=== PATIENT | female | born 1945 | race Caucasian/White ===

== ENCOUNTER → 2017-07-20 19:41 | Outpatient (CLI) | payer MEDICARE, OTHER, SELFPAY | PROVIDERS: Family Provider Family Medicine; PCP Family Medicine; Visit Provider Psychiatry & Neurology Neurology | DX: G47.33 Obstructive sleep apnea (adult) (pediatric) (principal) | CPT/HCPCS: 95810 ==

== ENCOUNTER 2017-08-15 11:17 | Inpatient (IN) | payer MEDICARE, OTHER, SELFPAY ==
[2017-08-15] VITALS (13 sets, daily range): BP systolic 119–152; BP diastolic 60–90; PULSE 44–70; RESP 14–20; TEMP 36.6–37; O2SAT 96–100; BMI 27.4; BMI 27.5; BMI 26.9
--- NOTE | 2017-08-15 12:14 | CT_ITS ---
STUDY: CT BRAIN WITHOUT CONTRAST REASON FOR EXAM: Female, 71 years old. Dizziness, weakness, lightheadedness RADIATION DOSAGE (If Supplied By Facility): CTDIvol = ( 44.99 ) mGy, DLP = ( 779.24 ) mGycm TECHNIQUE: Transaxial CT imaging of the brain was performed without administration of intravenous contrast material. Sagittal and coronal reconstructed images are provided and reviewed. Individualized dose optimization techniques were used for this CT. COMPARISON: 12/13/2016 FINDINGS: Normal soft tissue structures. There is hyperostosis frontalis internus. Normal size ventricles and extra-axial spaces for the patient's age. Normal white matter tracts of the cerebral hemispheres. Normal basal ganglia and thalami. Normal brainstem. Normal cerebellum. There is no intracranial hemorrhage. There are no findings of an acute ischemic infarction. There is mucoperiosteal inflammatory disease of the paranasal sinuses consistent with mild chronic sinusitis. CT/Brain/Head without Contrast IMPRESSION: No acute intracranial abnormality. Electronically Signed: Darian Ross DO at 13:46 EDT Tel , Service support ,
--- NOTE | 2017-08-15 12:15 | EKG12_ITS ---
Test Reason : SOB Blood Pressure : / mmHG Vent. Rate : 050 BPM Atrial Rate : 050 BPM P-R Int : 136 ms QRS Dur : 102 ms QT Int : 444 ms P-R-T Axes : 045 005 009 degrees QTc Int : 404 ms Sinus bradycardia Nonspecific ST and T wave abnormality Abnormal ECG Confirmed by LLUVIA SAUER, AIRAM ([id number]), supervising editor trailer CAROL PAZ ([id number] on 08/17/2017 6:07:06 PM Referred By: ADRIAN/ADRIÁN Confirmed By:AIRAM TEIXEIRA MD
--- NOTE | 2017-08-15 12:15 | CT_ITS ---
STUDY: CT ABDOMEN AND PELVIS WITHOUT CONTRAST REASON FOR EXAM: Female, 71 years old. Abdominal pain and weakness RADIATION DOSAGE (If Supplied By Facility): CTDIvol = ( 9.99 ) mGy, DLP = ( 504.33 ) mGycm TECHNIQUE: Transaxial images were obtained from the dome of the diaphragm to the symphysis pubis without oral contrast, and without intravenous contrast. Sagittal and coronal images were reconstructed. Individualized dose optimization techniques were used for this CT. COMPARISON: 12/01/2015 FINDINGS: The visualized lung bases are unremarkable. The visualized portions of the heart are within normal limits. Hilar calcifications are visualized. Evaluation of the abdominal viscera is limited in the absence of intravenous contrast. Normal liver. There are surgical clips in the gallbladder fossa consistent with a prior cholecystectomy. There are multiple benign calcified granulomata of the spleen. Normal pancreas. Normal bilateral adrenal glands. Normal right kidney. Normal left kidney. Normal visualized stomach. Normal small intestine. There appears to be pneumatosis within the right colon and proximal transverse. There is non-visualization of the appendix. Normal abdominal aorta. Normal inferior vena cava. Normal retroperitoneum. Normal urinary bladder. There is a left-sided inguinal hernia containing adipose tissue. Lymph nodes are seen in the inguinal region, right greater than left. There are diffuse degenerative changes of the visualized lumbar spine. CT/Abdomen/Pelvis without Cont IMPRESSION: Pneumatosis within the right and proximal transverse colon. No bowel obstruction, portal venous gas, or free air. Electronically Signed: Darian Ross DO at 14:09 EDT Tel , Service support ,
--- NOTE | 2017-08-15 12:19 | ED.DCSUM_ITS ---
- ER Visit Summary Date of Service: 08/15/17 Chief Complaint: Dizziness and weakness History of Present Illness: The patient is a 71 F with history of Takatsubos cardiomyopathy, gastritis and esophagitis who presents for 2 weeks of worsening dizziness and weakness. Patient states she abi gradually been getting weaker, and she feels dizzy when she ambulates or stands up. She describes it as feeling like she is going to faint while walking. It is improved if she lays down or sits down. She states she is sleeping a lot, and for the last week she could not even go to [facility]. She feels short of breath with exertion and mild activities of daily living. She also complains of chest heaviness for 2 weeks. She has been having some blurred vision as well. She has chronic abdominal pain secondary to a hernia operation. She also complains of chronic headaches. She is now on Topamax, which was started 3 weeks ago. No blood thinners. No other medication changes. Physical Examination: Vital signs: afebrile, hemodynamically stable, no hypoxia on room air General: well nourished, well developed, in no distress Skin: warm, dry, no rash, no pallor HEENT: normocephalic and atraumatic; PERRL, EOMI, moist mucous membranes Cardiovascular: Bradycardic rate and regular rhythm without murmurs, no peripheral edema, 2+ pulses all distal extremities Respiratory: No increased work of breathing, lungs are clear to auscultation bilaterally, no rales, rhonchi or wheezing Abdominal: Abdomen is soft, diffusely tender with normoactive bowel sounds, no guarding or rebound, no masses MSK: Moves all extremities, no deformities, generalized weakness Neuro: Awake and alert, oriented ?4. No facial droop, sensation and motor function intact and symmetric Test Results: Abnormal Lab Results 08/15/17 08/15/17 08/15/17 11:42 11:42 11:42 WBC 4.9 RBC 4.39 Hgb 12.9 Hct 39.2 MCV 89.3 MCH 29.4 MCHC 32.9 RDW 13.2 RDW Differential 42.9 Plt Count 251 MPV 9.3 Immature Gran % (Auto) 0.200 Neut % (Auto) 46.0 L Lymph % (Auto) 43.9 H [place] % (Auto) 7.5 Eos % (Auto) 1.8 Baso % (Auto) 0.6 Absolute Neuts (auto) 2.3 Absolute Lymphs (auto) 2.16 Total Counted Not Reportable Sodium 143 Potassium 3.7 Chloride 110 H Carbon Dioxide 23.0 Anion Gap 10 BUN 13 Creatinine 1.12 H Est GFR (MDRD) Af Amer 62 Est GFR (MDRD) Non-Af 51 L BUN/Creatinine Ratio 11.6 Glucose 88 Lactic Acid Calcium 9.2 Total Bilirubin 0.50 AST 15 ALT 17 Alkaline Phosphatase 65 Troponin I < 0.015 B-Natriuretic Peptide 25.8 Total Protein 7.4 Albumin 3.8 Globulin 3.6 Albumin/Globulin Ratio 1.1 Lipase 151 Urine Color Urine Clarity Urine pH Ur Specific [place] Urine Protein Urine Glucose (UA) Urine Ketones Urine Occult Blood Urine Nitrite Urine Bilirubin Urine Urobilinogen Ur Leukocyte Esterase Urine RBC Urine WBC Ur Squamous Epith Cells Urine Bacteria Urine Mucus POC Glucose 08/15/17 08/15/17 08/15/17 12:21 12:31 15:30 WBC RBC Hgb Hct MCV MCH MCHC RDW RDW Differential Plt Count MPV Immature Gran % (Auto) Neut % (Auto) Lymph % (Auto) [place] % (Auto) Eos % (Auto) Baso % (Auto) Absolute Neuts (auto) Absolute Lymphs (auto) Total Counted Sodium Potassium Chloride Carbon Dioxide Anion Gap BUN Creatinine Est GFR (MDRD) Af Amer Est GFR (MDRD) Non-Af BUN/Creatinine Ratio Glucose Lactic Acid 1.3 Calcium Total Bilirubin AST ALT Alkaline Phosphatase Troponin I B-Natriuretic Peptide Total Protein Albumin Globulin Albumin/Globulin Ratio Lipase Urine Color Yellow Urine Clarity Sl. Cloudy Urine pH 7.0 Ur Specific [place] 1.010 Urine Protein Negative Urine Glucose (UA) Normal Urine Ketones Negative Urine Occult Blood 10 H Urine Nitrite Negative Urine Bilirubin Negative Urine Urobilinogen Normal Ur Leukocyte Esterase 500 H Urine RBC 0 SEEN Urine WBC 0-5 SEEN Ur Squamous Epith Cells 0-5 SEEN Urine Bacteria 1+ Urine Mucus 0 SEEN POC Glucose 93 Clinical Impression(s) from Imaging Studies Brain CT 08/15/17 12:14 IMPRESSION: No acute intracranial abnormality. Electronically Signed: Darian Ross DO at 13:46 EDT Tel , Service support , Abdomen/Pelvis CT 08/15/17 12:15 IMPRESSION: Pneumatosis within the right and proximal transverse colon. No bowel obstruction, portal venous gas, or free air. Electronically Signed: Darian RossDO at 14:09 EDT Tel , Service support , Emergency Department Course and Treatment: Patient presents with multiple complaints, with the main issue being generalized weakness, fatigue and dizziness for the last 2 weeks, worsening. Patient is also having chest tightness and shortness of breath on exertion. Comprehensive workup was performed, showing an unremarkable head CT, no pneumonia noted on chest x-ray, no leukocytosis or anemia, no electrolyte derangements, no renal dysfunction or hepatic derangements, negative troponin, normal lactate, and normal BNP. EKG showed sinus bradycardia, which is unchanged from a prior EKG from 2005. Urine negative for infection. Given patient's complaint of significant abdominal pain , with tenderness diffusely on exam, CT of the abdomen and pelvis without contrast was performed and showed pneumatosis in the right and transverse colon. This finding was discussed with Dr. Falcon, who requested a CT scan be repeated with IV and p.o. contrast for further characterization of the pneumatosis and whether there may be ischemic changes. He will consult on the patient while in the hospital. Patient was ambulated and had difficulty walking without assistance due to dizziness and weakness. Because of her multiple complaints, her weakness and dizziness of unknown origin, and the intestinal pneumatosis of unclear significance, she will be admitted for further management. Treatment Plan: [] Disposition: [] Impression: 1. Intestinal pneumatosis 2. Generalized weakness and dizziness This note was generated with [employer] software. It may contain incorrect words, spelling, and punctuation that were not noted in review of the chart prior to signing ED Disposition - Plan for ED Patient: Chief Complaint: General Illness
[2017-08-15 12:32] LABS: Absolute Lymphocyte Count 2.16 X10^3/ul (0.83-4.51); Absolute Neutrophil Count 2.3 X10^3/uL (2.0-7.7); Basophil# 0.03 X10^3/uL; Basophil% 0.6 % (0-1); Eosinophil# 0.09 X10^3/uL; Eosinophils% 1.8 % (0-5); Hematocrit 39.2 % (37-47); Hemoglobin 12.9 g/dl (12.0-15.0); Lymphocyte # 2.16 X10^3/ul (4.0); Lymphocyte % 43.9 % (19-41); Mean Corp Hgb Conc 32.9 g/gl (32-36); Mean Corpuscular Hgb 29.4 pg (27.0-32.0); Mean Corpuscular Volume 89.3 fL (81-99); Mean Platelet Vol. 9.3 fl (6.2-12.0); Monocyte# 0.37 X10^3/uL; Monocyte% 7.5 % (0-10); Neutrophil # 2.26 X10^3/uL (2.7-7.7); Platelet Count 251 K/mm3 (150-450); RBC Distribution Width CV 13.2 % (11.6-14.6); RBC Distribution Width SD 42.9 fl (35.1-43.9); Red Blood Count 4.39 M/mm3 (4.2-5.4); White Blood Count 4.9 K/mm3 (4.4-11.0)
[2017-08-15 12:36] LABS: Bedside Glucose 93 mg/dL (70-110)
[2017-08-15 12:41] LABS: POSITIVE COUNT NO; POSITIVE DIFFERENTIAL NO; POSITIVE MORPHOLOGY NO
[2017-08-15 12:47] LABS: ALB/GLOB Ratio 1.1 RATIO (0.9-2.4); AST(SGOT) 15 U/L (15-37); Alanine Aminotransfer ALT/SGPT 17 U/L (13-56); Albumin, Serum 3.8 g/dL (3.2-5.0); Alkaline Phosphatase 65 U/L (45-117); Anion Gap 10 (5-15); BUN 13 mg/dL (7-18); BUN/Creat Ratio 11.6 RATIO (10-20); Calcium,Total 9.2 mg/dL (8.5-10.1); Chloride 110 mmol/L (98-107); Creatinine, Serum 1.12 mg/dL (0.55-1.02); EST Glomerular Filtration Rate 51 mL/min (>60); Est Glom Filt Rate - Afr Amer 62 mL/min (>60); Globulin 3.6 g/dL (2.2-4.2); Glucose 88 mg/dL (74-106); Lipase 151 U/L (73-393); Potassium 3.7 mmol/L (3.5-5.1); Protein, Total 7.4 g/dL (6.4-8.2); Sodium Level 143 mmol/L (136-145)
[2017-08-15 12:59] LABS: Lactic Acid 1.3 mmol/L (0.4-2.0)
[2017-08-15 13:04] LABS: BNP,B-Type NATRIURETIC PEPTIDE 25.8 pg/mL (0-100)
--- NOTE | 2017-08-15 15:00 | RAD_ITS ---
STUDY: X-RAY CHEST REASON FOR EXAM: Female, 71 years old. Shortness of breath TECHNIQUE: PA and lateral views of the chest. COMPARISON: None. FINDINGS: Cardiac monitoring leads overlie the chest. The lungs are clear and expanded. There is no demonstrated pleural abnormality. Normal size heart. Normal mediastinum and brian. Normal visualized pulmonary arteries. There is atherosclerotic calcification of the aortic arch with tortuosity. There are diffuse degenerative changes of the visualized thoracic spine. The bones are demineralized. Cholecystectomy clips are seen in the right upper quadrant of the abdomen. RAD/Chest PA and Lateral IMPRESSION: Degenerative changes, as described above. No demonstrated acute cardiopulmonary process. Electronically Signed: Darian Ross DO at 13:44 EDT Tel , Service support ,
[2017-08-15 15:37] LABS: Mucous, Urine 0 SEEN /hpf (<or=2+); Red Blood Cells-Urine 0 SEEN /hpf (0-5)
[2017-08-15 15:38] LABS: Color, Urine Yellow (Yellow); Glucose, Dipstick Normal (Normal); Ketone-Dipstick Negative (Negative); Leukocyte Esterase-Dipstick 500 /ul (Negative); Nitrite-Dipstick Negative (Negative); Occult Blood-Urine 10 /ul (Negative); Protein-Dipstick Negative (Negative); Urine Bilirubin Dipstick Negative (Negative); Urine Clarity Sl. Cloudy (Clear); Urine Urobilinogen Normal (Normal)
[2017-08-15 15:44] LABS: Bacteria 1+ /hpf (None Seen); Squamous Epithelial Cells - UA 0-5 SEEN /hpf (5-10); White Blood Cells 0-5 SEEN /hpf (0-5)
--- NOTE | 2017-08-15 16:01 | CT_ITS ---
STUDY: CT ABDOMEN AND PELVIS WITH CONTRAST REASON FOR EXAM: Female, 71 years old. Abdominal pain RADIATION DOSAGE (If Supplied By Facility): CTDIvol = ( 17.20 ) mGy, DLP = ( 906.35 ) mGycm TECHNIQUE: Transaxial images were obtained from the dome of the diaphragm to the symphysis pubis with oral contrast. 100 ml of Isovue 300 contrast was administered. Sagittal and coronal images were reconstructed. Individualized dose optimization techniques were used for this CT. COMPARISON: August 15, 2017 FINDINGS: The visualized lung bases are unremarkable. The visualized portions of the heart are within normal limits. Normal liver. Normal gallbladder and extrahepatic biliary system. Normal spleen. Normal pancreas. Normal bilateral adrenal glands. Normal right kidney. Normal left kidney. Normal visualized stomach. Normal small intestine. Normal colon. The appendix is visualized and appears normal. Normal abdominal aorta. Normal inferior vena cava. Normal retroperitoneum. Normal urinary bladder. A fat-containing left inguinal hernia. Fat-containing umbilical hernia. Moderate levoconvex scoliosis. CT/Abdomen/Pelvis WITH Contrast IMPRESSION: Normal enhanced CT of the abdomen and pelvis. Electronically Signed: Jayesh Padgett MD at 19:06 EDT , Service support ,
[2017-08-15] MEDS: Acetaminophen 325 MG Tablet 650 MG PO ×2 (16:04→21:33)
--- NOTE | 2017-08-15 16:57 | CM.ED ---
Attempted to perform case management initial assessment. Patient occupied with provider at this time.
--- NOTE | 2017-08-15 16:58 | DT_ITS ---
This patient was seen during an EMR downtime August 08, 2017 - August 15, 2017. This patient may have a combination of paper and electronic documentation or all paper documentation. All documentation is viewable within the e-chart portion of [facility] for each patient visit.
--- NOTE | 2017-08-15 17:05 | HP.PCM_ITS ---
Problem List (1) Takotsubo cardiomyopathy Status: Chronic (2) Depression Status: Chronic (3) GERD (gastroesophageal reflux disease) Status: Chronic (4) Irritable bowel syndrome Status: Chronic History of Present Illness Date of Admission: 08/15/17 Chief Complaint: Multiple complaints. The patient is a 71 year old F with past medical history as mentioned above presented to the medicine because of weakness, abdominal pain, dizziness or lightheadedness. Her main presenting complaint was generalized weakness that has been going on for almost 2 weeks, described as generalized fatigue and tiredness, has been sleeping most of his time, progressive, associated with dizziness as well as near syncope. In the last few days, she has been feeling more weak, tired, fatigued dizzy which described as unsteady and about to pass out. Also, she complained of abdominal pain, both suprapubic and epigastric pain. The suprapubic pain is vague pain, mild, not radiating and without associated symptoms. The epigastric pain started a few days ago, dull aching pain, constant, not radiating, around 4-5 out of 10 in severity, associated with nausea with infrequent vomiting and without aggravating or relieving factors. She has been having loose stools every day but she has been using 2 different laxative for history of IBS. She denies fever or chills. She denies urinary symptoms. She reported history of chronic exertional shortness of breath secondary to history of Takotsubo cardiomyopathy. In the emergency department, she was bradycardic, blood pressure was stable, pulse ox is maintained on room air. Routine blood work was unremarkable. LFT and lipase were normal. Lactic acid was normal. EKG revealed sinus bradycardia, no acute ischemic changes or cardiac arrhythmias, no evidence of heart block. Troponin is negative. Chest x-ray showed no acute findings. CT scan brain revealed no acute findings. CT scan abdomen and pelvis without contrast revealed pneumatosis within the right and proximal transverse colon, no other acute findings. She is being admitted for symptomatic bradycardia, abdominal pain with pneumatosis intestinalis, weakness and physical debility. Past Medical History Past Medical History (Chronic Problems): Chronic Problems Takotsubo cardiomyopathy (Chronic) Depression (Chronic) GERD (gastroesophageal reflux disease) (Chronic) Irritable bowel syndrome (Chronic) Allergies atorvastatin [From Lipitor] Allergy (Verified 10/09/17 11:29) Swelling Penicillins Allergy (Verified 12/01/15 08:23) Anaphylaxis rosuvastatin [From Crestor] Allergy (Verified 12/13/16 11:29) Swelling Home Medications: Ambulatory Orders Medication Instructions Recorded Citalopram Hydrobromide [Celexa] 40 mg PO DAILY 12/13/16 Fexofenadine HCl [Claudia Allergy] 180 mg PO DAILY 08/15/17 Lubiprostone [Amitiza] 24 mcg PO BID 08/15/17 Omeprazole [Omeprazole] 20 mg PO DAILY 08/15/17 Polyethylene Glycol 3350 [Miralax] 17 gm PO BID 08/15/17 Topiramate [Topamax] 50 mg PO BID 08/15/17 Surgical History: appendectomy, cholecystectomy, hysterectomy, - - Surgery for hiatal hernia. Psychiatric History: Depression GERIATRIC NURSE History: No pertinent GERIATRIC NURSE history Lives: Spouse/ Significant Other Smoking Status: Never smoker Alcohol: None Drugs: None - *Family History Maternal History Items: No pertinent history Paternal History Items: No pertinent history Review of Systems Constitutional: Reports: Anorexia, Weakness, Fatigue. Denies: Chills, Fever Eyes: Denies: Blurred vision, Double vision, Drainage, Redness HEENT: Denies: Difficulty Hearing, Ear Pain, Eye Pain, Nasal Congestion, Sore Throat Cardiovascular: Reports: Light Headedness. Denies: Chest Pain, Chest Pressure, Edema, Heaviness, Orthopnea, Paroxysmal Noc. Dyspnea, Syncope Respiratory: Reports: Shortness of breath upon exertion. Denies: Cough, Hemoptysis, Pleuritic Pain, Sputum production, Wheezing Gastrointestinal: Reports: Abdominal Pain, Diarrhea, Nausea, Vomiting. Denies: Constipation Genitourinary: Denies: Dysuria, Frequency, Hematuria Musculoskeletal: Denies: Arm Pain, Back Pain, Foot Pain Skin: Denies: Dryness, Rash Neurological: Denies: Balance problems, Double vision, Change in Speech, Slurred speech, Confusion, Headaches, Incoordination Psychiatric: Reports: Depression. Denies: Anxiety Endocrine: Denies: Change in Body Habitus, Polydipsia VTE Information - Inpt Only VTE Present on Admission: No VTE Mechan Device Prophylaxis: None VTE Pharm Prophylaxis ordered?: Yes - Physical Exam General: Alert, Oriented x3, Cooperative, No apparent distress HEENT: Atraumatic, PERRLA, EOMI, Normocephalic Oral: Moist Mucosa, No Gingival or Mucosal Lesions/ Ulcerations Neck: Supple, No JVD, Negative Carotid Bruits, Trachea Midline, Thyroid Normal Size and Texture Lungs: Clear to auscultation, No rhonchi, No wheeze, No rales, Diminished Cardiovascular: Regular rate, Regular Rhythm, Normal S1, Normal S2, No murmurs, PMI Normal, Bradycardic Abdomen: Bowel Sounds Present, Soft, Non-Distended, No Hepato-splenomegaly, Tender - Mild epigastric tenderness, no guarding or rigidity. Extremities: No clubbing, No cyanosis, No edema Skin: No rashes, No breakdown Lymphatic: No Cervical, Supraclavicular, or Inguinal Adenopathy Neurological: Cranial nerves II-XII grossly intact, Motor Exam 5/5 strength throughout Psych/Mental Status: Normal Affect, Appropriate, Alert and oriented to time, place, person, mood and affect Vital Signs Temp Pulse Resp BP Pulse Ox 98 F 47 L 20 H 152/90 H 96 08/15/17 11:18 08/15/17 16:46 08/15/17 16:46 08/15/17 16:46 08/15/17 16:46 Oxygen Delivery Method Room Air Weight: 160 lb Body Mass Index (BMI) 27.4 Finger Stick Blood Glucose 93 Laboratory Tests Past 24 Hrs 08/15/17 08/15/17 08/15/17 11:42 11:42 11:42 WBC 4.9 RBC 4.39 Hgb 12.9 Hct 39.2 MCV 89.3 MCH 29.4 MCHC 32.9 RDW 13.2 RDW Differential 42.9 Plt Count 251 MPV 9.3 Immature Gran % (Auto) 0.200 Neut % (Auto) 46.0 L Lymph % (Auto) 43.9 H [place] % (Auto) 7.5 Eos % (Auto) 1.8 Baso % (Auto) 0.6 Absolute Neuts (auto) 2.3 Absolute Lymphs (auto) 2.16 Total Counted Not Reportable Sodium 143 Potassium 3.7 Chloride 110 H Carbon Dioxide 23.0 Anion Gap 10 BUN 13 Creatinine 1.12 H Est GFR (MDRD) Af Amer 62 Est GFR (MDRD) Non-Af 51 L BUN/Creatinine Ratio 11.6 Glucose 88 Lactic Acid Calcium 9.2 Total Bilirubin 0.50 AST 15 ALT 17 Alkaline Phosphatase 65 Troponin I < 0.015 B-Natriuretic Peptide 25.8 Total Protein 7.4 Albumin 3.8 Globulin 3.6 Albumin/Globulin Ratio 1.1 Lipase 151 Urine Color Urine Clarity Urine pH Ur Specific [place] Urine Protein Urine Glucose (UA) Urine Ketones Urine Occult Blood Urine Nitrite Urine Bilirubin Urine Urobilinogen Ur Leukocyte Esterase Urine RBC Urine WBC Ur Squamous Epith Cells Urine Bacteria Urine Mucus 08/15/17 08/15/17 12:21 15:30 WBC RBC Hgb Hct MCV MCH MCHC RDW RDW Differential Plt Count MPV Immature Gran % (Auto) Neut % (Auto) Lymph % (Auto) [place] % (Auto) Eos % (Auto) Baso % (Auto) Absolute Neuts (auto) Absolute Lymphs (auto) Total Counted Sodium Potassium Chloride Carbon Dioxide Anion Gap BUN Creatinine Est GFR (MDRD) Af Amer Est GFR (MDRD) Non-Af BUN/Creatinine Ratio Glucose Lactic Acid 1.3 Calcium Total Bilirubin AST ALT Alkaline Phosphatase Troponin I B-Natriuretic Peptide Total Protein Albumin Globulin Albumin/Globulin Ratio Lipase Urine Color Yellow Urine Clarity Sl. Cloudy Urine pH 7.0 Ur Specific [place] 1.010 Urine Protein Negative Urine Glucose (UA) Normal Urine Ketones Negative Urine Occult Blood 10 H Urine Nitrite Negative Urine Bilirubin Negative Urine Urobilinogen Normal Ur Leukocyte Esterase 500 H Urine RBC 0 SEEN Urine WBC 0-5 SEEN Ur Squamous Epith Cells 0-5 SEEN Urine Bacteria 1+ Urine Mucus 0 SEEN POC Glucose 08/15/17 12:31 POC Glucose 93 Clinical Impression(s) from Imaging Studies Brain CT 08/15/17 12:14 IMPRESSION: No acute intracranial abnormality. Electronically Signed: Darian Ross DO at 13:46 EDT Tel , Service support , Abdomen/Pelvis CT 08/15/17 12:15 IMPRESSION: Pneumatosis within the right and proximal transverse colon. No bowel obstruction, portal venous gas, or free air. Electronically Signed: Darian Ross DO at 14:09 EDT Tel , Service support , Assessment/Plan This is a 71 years old female patient presented to the medicine because of multiple complaints including weakness, fatigue, dizziness, near syncope and abdominal pain, found to have bradycardia on EKG as well as pneumatosis of the right and proximal transverse colon. #1 symptomatic bradycardia: EKG reviewed, sinus bradycardia , normal VA interval , normal QRS, no evidence of heart block or acute ischemic changes. Heart rate has been in the range of high 40s-50s and the patient mentioned that that is unusual for her. Initially, blood pressure was stable and then start to rise. Troponin is negative. Plan: Admit to PCU, cardiac monitoring, 2D echocardiogram , repeat EKG tomorrow morning, repeat CBC and BMP tomorrow morning, cardiology consult, PT OT recently. #2 abdominal pain/pneumatosis of the right colon: CT scan abdomen and pelvis without contrast reviewed. Neurosurgery consulted by ER physician and requested CT scan abdomen and pelvis with IV and oral contrast which was ordered. Plan: Keep on clear liquids, IV fluids, IV antiemetics, IV morphine as needed for pain, repeat CBC and BMP normal, general surgery consult. #3 generalized weakness/functional decline: Check TSH, PT OT evaluation and treatment #4 irritable bowel syndrome: Patient has been having loose stools, has been on MiraLAX and Amitiza. #5 history of Takotsubo cardiomyopathy: No evidence of acute CHF, clinically stable. Plan for 2D echocardiogram as above. #6 GERD: Pepcid IV twice daily. #7 depression: Continue Celexa. #8 DVT prophylaxis: Subcu Lovenox. This note was generated with [employer] dictation software. It may contain incorrect words, spelling, and punctuation that were not noted in checking the note before signing. Code Visit Inpatient E&M: 23081 Init Hosp L3
--- NOTE | 2017-08-15 19:35 | ECHOD_ITS ---
Procedure This was a 2D Doppler, Color Flow transthoracic echocardiogram. The exam was of adequate technical quality. Exam performed portable in patient room. Left Ventricle Normal LV size. Left ventricular systolic function is normal. The estimated ejection fraction is 55 %. There is evidence of diastolic dysfunction. No regional wall motion abnormalities noted. Right Ventricle Normal RV size. Normal systolic function. Atria The left atrium is mildly enlarged. Normal right atrium. No doppler evidence for ASD. Mitral Valve There is no mitral annular calcification. Normal mitral valve. Trivial mitral valve insufficiency. Tricuspid Valve Normal tricuspid valve. Trivial tricuspid valve insufficiency. Right ventricular systolic pressure estimated to be 23 mmHg. Aortic Valve Trisinus/trileaflet aortic valve. Normal aortic valve. Pulmonic Valve The pulmonic valve is not well visualized. Great Vessels Normal sized aortic root. Pericardium/Pleural Trivial pericardial effusion. There are no echocardiographic indications of cardiac tamponade. MMode/2D Measurements & Calculations LVIDd: 5.0 cm IVSd: 0.91 cm Ao root diam: 2.4 cm LVIDs: 3.5 cm LVPWd: 0.98 cm LA dimension: 3.7 cm RVDd: 3.1 cm FS: 30.3 % LAV(MOD-bp): 56.6 ml LVAd ap4: 28.9 cm2 SV(MOD-sp4): 50.6 ml LAV(MOD-bp) Indexed: 31.4 ml/m2 EDV(MOD-sp4): 93.6 ml LAV(MOD-sp2): 55.0 ml EDV(sp4-el): 93.0 ml LAV(MOD-sp4): 57.2 ml LVAs ap4: 17.1 cm2 ESV(MOD-sp4): 43.0 ml ESV(sp4-el): 41.6 ml EF(MOD-sp4): 54.1 % EF(sp4-el): 55.3 % SV(sp4-el): 51.4 ml LA A4 area: 19.7 cm2 RA A4 area: 13.4 cm2 Doppler Measurements & Calculations MV E max salbador: 74.4 cm/sec Lat Peak E' Salbador: 9.4 cm/sec Med Peak E' Salbador: 6.1 cm/sec MV A max salbador: 74.1 cm/sec E/E' lat: 7.9 E/E' med: 12.3 MV E/A: 1.0 Ao V2 max: 146.7 cm/sec LV V1 max: 103.4 cm/sec TR max salbador: 221.3 cm/sec Ao max P.6 mmHg LV V1 max P.3 mmHg TR max P.6 mmHg Interpretation Summary Left ventricular systolic function is normal. The estimated ejection fraction is 55 %. The left atrium is mildly enlarged. Trivial mitral valve insufficiency. Trivial tricuspid valve insufficiency. Trivial pericardial effusion. There are no echocardiographic indications of cardiac tamponade. Right ventricular systolic pressure estimated to be 23 mmHg. Ordering Physician: Vanesa Hansen
--- NOTE | 2017-08-15 19:35 | EKG12_ITS ---
Test Reason : RHYTHM CHANGE Blood Pressure : / mmHG Vent. Rate : 049 BPM Atrial Rate : 049 BPM P-R Int : 160 ms QRS Dur : 102 ms QT Int : 468 ms P-R-T Axes : 066 016 -20 degrees QTc Int : 422 ms Sinus bradycardia Nonspecific ST and T wave abnormality Abnormal ECG Confirmed by GARDENIA SAUER, ALEXEY ([id number]), editor farm journal CAROL PAZ ([id number] on 08/19/2017 1:44:49 PM Referred By: CLARENCE Confirmed By:ALEXEY VARNER MD
[2017-08-15] MEDS: 0.9% Normal Saline 1,000 ML 75 ML IV (20:15)
[2017-08-15 20:33] LABS: Thyroid Stim Hormone (TSH) 1.73 uIU/mL (0.358-3.74)
--- NOTE | 2017-08-15 23:21 | PCM.CONS.GEN ---
Reason for Consult Date of Consultation: 08/15/17 History of Present Illness: The patient is a 71 year old F with a complaint of abdominal discomfort and cramping for the past few weeks. She presents with this and other general and vague complaints including, fatigue, dizziness. In the ER she had a non contrast CT scan which was interpreted as pneumotosis of the ascending and transverse colon. I asked that a repeat Ct scan with oral and IV contrast be obtained. This demonstrated no signs of pneumatosis. In retrospect, this was most likely felt to be air within the stool near the colon wall. In general, the CT scan of the abdomen is relatively unremarkable. In addition to the patient's other constellation of symptoms. She overall states she notes some vague but relatively mild abdominal discomfort but also nausea without vomiting and if not, anorexia a certain degree of food aversion. The patient's past surgical history includes a cholecystectomy performed by Dr. Ramirez Acosta at [facility] and then a laparoscopic Irma fundoplication performed by Dr. Ramirez Acosta at [facility] - I understand looking old records. This procedure was done in December 2000. he presented to [facility] in 2002 for complaints of epigastric and left upper quadrant pain with complaints of reflux of food traveling back up to her mouth. she had an upper GI series obtained at that time which demonstrated good location of the wrap without other visualized abnormalities. She then followed up with Dr. Puneet Nuno in 2006. She had repeat upper endoscopy which demonstrated an antral ulcer, but otherwise intact wrap. She had follow-up pH studies for her symptoms of reflux and is actually demonstrated minimal esophageal reflux. 2007. She again returned with complaints of epigastric pain and reflux symptoms again. She underwent upper series which was unremarkable. returns frequently with complaints of dysphagia, acid taste in her mouth, and her epigastric symptoms. She underwent follow-up upper endoscopyin [address] Leo Viera. Biopsies were obtained which were negative for eosinophilic esophagitis and endoscopy was otherwise relatively unremarkable In June 2015-the patient was at [facility] in [place], [place]. The patient was admitted from June 23 to July 02, 2015. on the day of admission, she underwent exploratory laparotomy, lysis of adhesions and gastropexy according to her discharge summary. Prior to this procedure, the patient underwent upper endoscopy which was intact from a visual standpoint, but then upper GI which with the patient straining seemed to indicate that the Irma wrap passed through a hiatal hernia and the entire process moved up into the chest. The procedure was initially attempted laparoscopically but due to extensive adhesions, was converted to open. It was felt there were adhesions between the stomach and the liver, which caused an unusual angulation with the GE junction, but did not feel there was a true recurrent hiatal hernia. Based on interpretation of the brief operative note. patient's postoperative follow-up note demonstrates persistent symptoms post surgical procedure initiated been experiencing pretty much since the initial fundoplication. 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 her surgical history includes appendectomy and hysterectomy along with the section. In addition to the above-mentioned procedures. Her home medication list includes albuterol, Elavil, Zanaflex, Celexa, Claudia, Phenergan and Benadryl. She notes allergies to cats, Crestor, dogs, penicillin and multiple environmental issues. Past Medical History Past Medical History (Chronic Problems): Chronic Problems Depression (Chronic) GERD (gastroesophageal reflux disease) (Chronic) Irritable bowel syndrome (Chronic) Allergies atorvastatin [From Lipitor] Allergy (Verified 12/13/16 11:29) Swelling Penicillins Allergy (Verified 12/01/15 08:23) Anaphylaxis rosuvastatin [From Crestor] Allergy (Verified 12/13/16 11:29) Swelling Home Medications: Ambulatory Orders Medication Instructions Recorded Citalopram Hydrobromide [Celexa] 40 mg PO QHS 12/13/16 Fexofenadine HCl [Claudia Allergy] 180 mg PO DAILY 08/15/17 Lubiprostone [Amitiza] 24 mcg PO BID 08/15/17 Omeprazole [Omeprazole] 20 mg PO DAILY 08/15/17 Polyethylene Glycol 3350 [Miralax] 17 gm PO BID 08/15/17 Topiramate [Topamax] 50 mg PO BID 08/15/17 Surgical History: appendectomy, cholecystectomy, hysterectomy, - - Surgery for hiatal hernia. 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 Lives: Spouse/ Significant Other Smoking Status: Never smoker Alcohol: None Drugs: None - *Family History Maternal History Items: No pertinent history Paternal History Items: No pertinent history Review of Systems Constitutional: Reports: Malaise, Weakness, Fatigue Cardiovascular: Reports: Chest Pain, Chest Tightness Gastrointestinal: Reports: Abdominal Pain, Nausea Patient Problems: Active and Suspected Problems Sinus bradycardia (Acute) Chest pain (Acute) Shortness of breath (Acute) Fatigue (Acute) Lightheaded (Acute) - Physical Exam General: Alert, Oriented x3, Cooperative Lungs: Clear to auscultation, Normal air movement Cardiovascular: Regular rate, No murmurs Abdomen: Bowel Sounds Present, Soft, Non Tender Vital Signs Temp Pulse Resp BP Pulse Ox 98.6 F 70 18 136/64 H 99 08/15/17 19:35 08/15/17 23:01 08/15/17 19:35 08/15/17 19:36 08/15/17 20:00 Oxygen Delivery Method Room Air Weight: 73.3 kg Body Mass Index (BMI) 26.9 Assessment/Plan All Active Problems Sinus bradycardia (Acute) Chest pain (Acute) Shortness of breath (Acute) Fatigue (Acute) Lightheaded (Acute) Takotsubo cardiomyopathy (Resolved) abdominal pain, likely based on review history much greater than [address] scan initially interpreted as pneumotosis intestinalis. follow-up CAT scan without specific abnormalities. CT scan was reviewed in consideration of the patient's previous surgical history. The stomach and Irma fundoplication appeared to be intact in CT scan review. This point in time, I see no acute abdominal processes and the patient's overall vague complex of symptomatology consistent with a complaint. She has had for many years. One test that was recommended that I did not see obtained in her previous workup was a gastric emptying study. I feel is reasonable proceed with that test. Given the patient's constellation of symptoms, I be reluctant to offer any additional procedures.
--- NOTE | 2017-08-15 23:24 | CON.PCM_ITS ---
Reason for Consult Date of Consultation: 08/15/17 History of Present Illness: The patient is a 71 year old F with a complaint of abdominal discomfort and cramping for the past few weeks. She presents with this and other general and vague complaints including, fatigue, dizziness. In the ER she had a non contrast CT scan which was interpreted as pneumotosis of the ascending and transverse colon. I asked that a repeat Ct scan with oral and IV contrast be obtained. This demonstrated no signs of pneumatosis. In retrospect, this was most likely felt to be air within the stool near the colon wall. In general, the CT scan of the abdomen is relatively unremarkable. In addition to the patient's other constellation of symptoms. She overall states she notes some vague but relatively mild abdominal discomfort but also nausea without vomiting and if not, anorexia a certain degree of food aversion. The patient's past surgical history includes a cholecystectomy performed by Dr. Ramirez Acosta at [facility] and then a laparoscopic Irma fundoplication performed by Dr. Ramirez Acosta at [facility] - I understand looking old records. This procedure was done in December 2000. he presented to [facility] in 2002 for complaints of epigastric and left upper quadrant pain with complaints of reflux of food traveling back up to her mouth. she had an upper GI series obtained at that time which demonstrated good location of the wrap without other visualized abnormalities. She then followed up with Dr. Puneet Nuno in 2006. She had repeat upper endoscopy which demonstrated an antral ulcer, but otherwise intact wrap. She had follow-up pH studies for her symptoms of reflux and is actually demonstrated minimal esophageal reflux. 2007. She again returned with complaints of epigastric pain and reflux symptoms again. She underwent upper series which was unremarkable. returns frequently with complaints of dysphagia , acid taste in her mouth, and her epigastric symptoms. She underwent follow- up upper endoscopyin [address] Leo Viera. Biopsies were obtained which were negative for eosinophilic esophagitis and endoscopy was otherwise relatively unremarkable In June 2015-the patient was at [facility] in [place], [place]. The patient was admitted from June 23 to July 02, 2015. on the day of admission, she underwent exploratory laparotomy, lysis of adhesions and gastropexy according to her discharge summary. Prior to this procedure, the patient underwent upper endoscopy which was intact from a visual standpoint, but then upper GI which with the patient straining seemed to indicate that the Irma wrap passed through a hiatal hernia and the entire process moved up into the chest. The procedure was initially attempted laparoscopically but due to extensive adhesions, was converted to open. It was felt there were adhesions between the stomach and the liver, which caused an unusual angulation with the GE junction, but did not feel there was a true recurrent hiatal hernia. Based on interpretation of the brief operative note. patient's postoperative follow-up note demonstrates persistent symptoms post surgical procedure initiated been experiencing pretty much since the initial fundoplication. 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 her surgical history includes appendectomy and hysterectomy along with the section. In addition to the above-mentioned procedures. Her home medication list includes albuterol, Elavil, Zanaflex, Celexa, Claudia, Phenergan and Benadryl. She notes allergies to cats, Crestor, dogs, penicillin and multiple environmental issues. Past Medical History Past Medical History (Chronic Problems): Chronic Problems Depression (Chronic) GERD (gastroesophageal reflux disease) (Chronic) Irritable bowel syndrome (Chronic) Allergies atorvastatin [From Lipitor] Allergy (Verified 12/13/16 11:29) Swelling Penicillins Allergy (Verified 12/01/15 08:23) Anaphylaxis rosuvastatin [From Crestor] Allergy (Verified 12/13/16 11:29) Swelling Home Medications: Ambulatory Orders Medication Instructions Recorded Citalopram Hydrobromide [Celexa] 40 mg PO QHS 12/13/16 Fexofenadine HCl [Claudia Allergy] 180 mg PO DAILY 08/15/17 Lubiprostone [Amitiza] 24 mcg PO BID 08/15/17 Omeprazole [Omeprazole] 20 mg PO DAILY 08/15/17 Polyethylene Glycol 3350 [Miralax] 17 gm PO BID 08/15/17 Topiramate [Topamax] 50 mg PO BID 08/15/17 Surgical History: appendectomy, cholecystectomy, hysterectomy, - - Surgery for hiatal hernia. 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 Lives: Spouse/ Significant Other Smoking Status: Never smoker Alcohol: None Drugs: None - *Family History Maternal History Items: No pertinent history Paternal History Items: No pertinent history Review of Systems Constitutional: Reports: Malaise, Weakness, Fatigue Cardiovascular: Reports: Chest Pain, Chest Tightness Gastrointestinal: Reports: Abdominal Pain, Nausea Patient Problems: Active and Suspected Problems Sinus bradycardia (Acute) Chest pain (Acute) Shortness of breath (Acute) Fatigue (Acute) Lightheaded (Acute) - Physical Exam General: Alert, Oriented x3, Cooperative Lungs: Clear to auscultation, Normal air movement Cardiovascular: Regular rate, No murmurs Abdomen: Bowel Sounds Present, Soft, Non Tender Vital Signs Temp Pulse Resp BP Pulse Ox 98.6 F 70 18 136/64 H 99 08/15/17 19:35 08/15/17 23:01 08/15/17 19:35 08/15/17 19:36 08/15/17 20:00 Oxygen Delivery Method Room Air Weight: 73.3 kg Body Mass Index (BMI) 26.9 Assessment/Plan All Active Problems Sinus bradycardia (Acute) Chest pain (Acute) Shortness of breath (Acute) Fatigue (Acute) Lightheaded (Acute) Takotsubo cardiomyopathy (Resolved) abdominal pain, likely based on review history much greater than [address] scan initially interpreted as pneumotosis intestinalis. follow- up CAT scan without specific abnormalities. CT scan was reviewed in consideration of the patient's previous surgical history. The stomach and Irma fundoplication appeared to be intact in CT scan review. This point in time, I see no acute abdominal processes and the patient's overall vague complex of symptomatology consistent with a complaint. She has had for many years. One test that was recommended that I did not see obtained in her previous workup was a gastric emptying study. I feel is reasonable proceed with that test. Given the patient's constellation of symptoms, I be reluctant to offer any additional procedures.
[2017-08-16] VITALS (12 sets, daily range): BP systolic 103–158; BP diastolic 48–75; PULSE 45–61; RESP 16–18; TEMP 36.7–37.3; O2SAT 97–100
[2017-08-16 06:01] LABS: Absolute Lymphocyte Count 2.08 X10^3/ul (0.83-4.51); Absolute Neutrophil Count 1.6 X10^3/uL (2.0-7.7); Basophil# 0.04 X10^3/uL; Eosinophil# 0.09 X10^3/uL; Eosinophils% 2.2 % (0-5); Hematocrit 34.3 % (37-47); Hemoglobin 11.6 g/dl (12.0-15.0); Lymphocyte # 2.08 X10^3/ul (4.0); Lymphocyte % 50.4 % (19-41); Mean Corp Hgb Conc 33.8 g/gl (32-36); Mean Corpuscular Hgb 30.3 pg (27.0-32.0); Mean Corpuscular Volume 89.6 fL (81-99); Mean Platelet Vol. 9.3 fl (6.2-12.0); Monocyte# 0.36 X10^3/uL; Monocyte% 8.7 % (0-10); Neutrophil # 1.56 X10^3/uL (2.7-7.7); Neutrophil % 37.7 % (47-70); Platelet Count 213 K/mm3 (150-450); RBC Distribution Width CV 13.1 % (11.6-14.6); RBC Distribution Width SD 42.3 fl (35.1-43.9); Red Blood Count 3.83 M/mm3 (4.2-5.4); White Blood Count 4.1 K/mm3 (4.4-11.0)
[2017-08-16 06:11] LABS: POSITIVE COUNT NO; POSITIVE DIFFERENTIAL NO; POSITIVE MORPHOLOGY NO
[2017-08-16 06:23] LABS: Anion Gap 6 (5-15); BUN 11 mg/dL (7-18); BUN/Creat Ratio 12.9 RATIO (10-20); Calcium,Total 8.5 mg/dL (8.5-10.1); Chloride 114 mmol/L (98-107); Creatinine, Serum 0.85 mg/dL (0.55-1.02); EST Glomerular Filtration Rate 70 mL/min (>60); Est Glom Filt Rate - Afr Amer 85 mL/min (>60); Glucose 85 mg/dL (74-106); Potassium 4.1 mmol/L (3.5-5.1); Sodium Level 142 mmol/L (136-145)
--- NOTE | 2017-08-16 06:58 | PN_ITS ---
Subjective: Patient was seen and examined. She still feels tired. No abdominal discomfort , been eating some soft diet. Denies any chest pain no dizziness or palpitations. Telemetry shows heart rate of 47; no acute events overnight. Vitals/I&O's: Vital Signs Temp Pulse Resp BP Pulse Ox 98.2 F 45 L 16 107/48 L 98 08/16/17 06:16 08/16/17 06:16 08/16/17 06:16 08/16/17 06:16 08/16/17 06:16 Oxygen Delivery Method Room Air Weight: 73.3 kg Body Mass Index (BMI) 26.9 Intake and Output for Last 24 Hours 08/14/17 08/15/17 08/16/17 23:59 23:59 23:59 Intake Total 942 / 942 472 / 472 Output Total 125 / 125 Balance 942 / 942 347 / 347 General: Alert, Oriented x3, Cooperative, No apparent distress HEENT: Atraumatic, PERRLA, EOMI, Normocephalic Oral: Moist Mucosa Neck: Supple Lungs: Clear to auscultation, Normal air movement Cardiovascular: Regular rate, Regular Rhythm, Normal S1, Normal S2, No murmurs Abdomen: Bowel Sounds Present, Soft, Non Tender, Non-Distended, No Hepato- splenomegaly Extremities: No edema Skin: No rashes, No breakdown Musculoskeletal: No Tenderness to Palpation of Joints or Extremities Lymphatic: No Cervical, Supraclavicular, or Inguinal Adenopathy Neurological: Cranial nerves II-XII grossly intact, Neuro grossly intact Psych/Mental Status: Normal Affect, Appropriate Laboratory Results 08/16/17 05:20: WBC 4.1 L, RBC 3.83 L, Hgb 11.6 L, Hct 34.3 L, MCV 89.6, MCH 30.3, MCHC 33.8, RDW 13.1, RDW Differential 42.3, Plt Count 213, MPV 9.3, Immature Gran % (Auto) 0.000, Neut % (Auto) 37.7 L, Lymph % (Auto) 50.4 H, [place] % (Auto) 8.7, Eos % (Auto) 2.2, Baso % (Auto) 1.0, Absolute Neuts (auto) 1.6 L, Absolute Lymphs (auto) 2.08, Total Counted Not Reportable 08/16/17 05:20: Sodium 142, Potassium 4.1, Chloride 114 H, Carbon Dioxide 22.0, Anion Gap 6, BUN 11, Creatinine 0.85, Est GFR (MDRD) Af Amer 85, Est GFR (MDRD) Non-Af 70, BUN/Creatinine Ratio 12.9, Glucose 85, Calcium 8.5 Current Medications Acetaminophen (Tylenol) 650 mg PO Q6H PRN PRN PRN Reason: pain Last Admin: 08/15/17 21:33 Dose: 650 mg Enoxaparin Sodium (Lovenox) 30 mg SC DAILY@1000 GILBERTO Sodium Chloride () 1,000 mls @ 75 mls/hr IV .[id number] [facility] Last Admin: 08/15/17 20:15 Dose: 75 mls/hr Famotidine (Pepcid 20mg) 20 mg in 50 mls @ 150 mls/hr IV Q12 GILBERTO Last Admin: 08/15/17 21:32 Dose: 150 mls/hr Magnesium Hydroxide (Milk Of Magnesia) 30 ml PO DAILY PRN PRN PRN Reason: Constipation Morphine Sulfate () 1 mg IV Q4H PRN PRN PRN Reason: SEVERE PAIN (6-12/14) Nutritional Formula (Lactose Free) (Ensure Clear) 120 ml PO 4X/DAY [facility] Last Admin: 08/15/17 21:32 Dose: 120 ml Ondansetron HCl (Zofran) 4 mg IV Q6H PRN PRN PRN Reason: NAUSEA/VOMITING Sodium Chloride () 5 - 30 ml IV UD PRN PRN Reason: SALINE FLUSH Medical Necessity - Tobacco Use Smoking Status: Never smoker Assessment/Plan 71 years old female patient admitted with multiple complaints including weakness , fatigue, dizziness, near syncope and abdominal pain, found to have bradycardia on EKG as well as pneumatosis of the right and proximal transverse colon. 1. Symptomatic bradycardia, unclear etiology, h/o takusubo cardiomyopathy, not on beta-blockers or calcium channel blockers, HR ~40s, cardiology consulted, 2D echo pending, will continue to monitor. 2. Abdominal pain, resolving, initial CT of the abdomen showed pneumatosis of the right colon/transverse colon, CT of abdomen and pelvis with oral contrast was negative for any pneumatosis, general surgery consulted, patient has advancement in her diet. 3. Debility secondary to above, TSH is normal, PT and OT to evaluate and treat. 4. Irritable bowel syndrome, home MiraLAX and Amitiza on hold on account of diarrhea 5. History of Takotsubo cardiomyopathy, no evidence of acute CHF 6. GERD, on Pepcid IV twice daily. 7. Depression, on Celexa. 8. DVT Lovenox subcu Code Visit Inpatient E&M: 64938 Subs Hosp L2
--- NOTE | 2017-08-16 07:39 | EKG12_ITS ---
Test Reason : RHYTHM Blood Pressure : / mmHG Vent. Rate : 047 BPM Atrial Rate : 047 BPM P-R Int : 166 ms QRS Dur : 102 ms QT Int : 500 ms P-R-T Axes : 069 003 003 degrees QTc Int : 442 ms Sinus bradycardia Otherwise normal ECG Confirmed by GARDENIA SAUER, ALEXEY ([id number]), online editor CAROL PAZ ([id number] on 08/19/2017 1:43:04 PM Referred By: GARDENIA Confirmed By:ALEXEY VARNER MD
[2017-08-16] MEDS: Enoxaparin 30 MG/0.3 ML Syringe SC (09:47)
[2017-08-16] MEDS: 0.9% Normal Saline 1,000 ML 75 ML IV ×2 (09:48→21:20)
--- NOTE | 2017-08-16 11:06 | CASEMGMT ---
See RN CM Assessment Link. DC PLAN: Home on discharge. No needs identified. Makenzie TEJEDAN RN ACM
--- NOTE | 2017-08-16 17:25 | PCM.CONS.C ---
Problem List (1) Sinus bradycardia Status: Acute (2) Takotsubo cardiomyopathy Status: Resolved (3) Chest pain Status: Acute (4) Shortness of breath Status: Acute (5) Fatigue Status: Acute (6) Lightheaded Status: Acute (7) GERD (gastroesophageal reflux disease) Status: Chronic (8) Irritable bowel syndrome Status: Chronic Reason for Consult Date of Consultation: 08/16/17 History of Present Illness: The patient is a 71 year old white female who is referred for evaluation of symptomatic sinus bradycardia superimposed upon a history of a Takotsubo Syndrome remote, along with chest discomfort, shortness of breath, fatigue, lightheadedness, superimposed upon a history of underlying GERD and irritable bowel syndrome. She states that recently she has been noting progressive chest discomfort and shortness of breath. She has become more and more fatigued. She has had episodes of lightheadedness has not lost consciousness. She has had ongoing abdominal discomfort which she relates to a history of GERD and irritable bowel syndrome and a hiatal hernia surgery performed in the [facility]. She states several years ago she was diagnosed with her aforementioned Takotsubo Syndrome at [facility] in [place], [place]. She states she was treated medically for a period of time which included beta-odalys therapy with carvedilol/Coreg. Over time her medications were discontinued. She states she has not had cardiovascular follow-up for at least one year. She presented to the emergency department for the aforementioned symptoms. She was found to have sinus bradycardia with ventricular rates between 40 and 50 bpm. She was not noted to be hypotensive. Her troponin I level was negative. Her ECG demonstrated sinus bradycardia with nonspecific ST and T-wave changes. It has been repeated with continued nonspecific ST and T-wave changes. She is undergone evaluation with a transthoracic echocardiogram. Her left ventricle was thought to be normal with an LVEF of 55% with mild left atrial enlargement, trivial MR, trivial TR, trivial pericardial effusion, and no echocardiographic indications of cardiac tamponade physiology, with an estimated RV systolic pressure of 23 mmHg. She had a nuclear imaging study performed at [facility] on 08/01/2014. At that time she exercised for 8 minutes on a Justo protocol achieving 89% predicted maximal heart rate with a peak blood pressure of 210/105 mmHg and a peak MET capacity of approximately 9 METs. Her peak exercise ECG demonstrated no obvious ECG changes. Nuclear images appear compatible with physiologic apical thinning with no myocardial perfusion changes consider diagnostic for stress-induced myocardial ischemia or previous myocardial injury/infarction. Her gated LVEF was 67%. Of note she had chest discomfort pretest, during exercise, and recovery. She is also being evaluated by general surgery for her abdominal discomfort. She has had abdominal/pelvic CT scans performed. The CT scan with contrast was reported as unremarkable. She has denied any ongoing orthopnea, PND, or peripheral pitting edema. There has been no near syncope or syncope. Past Medical History Allergies/Adverse Reactions: Allergies atorvastatin [From Lipitor] Allergy (Verified 12/13/16 11:29) Swelling Penicillins Allergy (Verified 12/01/15 08:23) Anaphylaxis rosuvastatin [From Crestor] Allergy (Verified 12/13/16 11:29) Swelling Home Medications: Ambulatory Orders Medication Instructions Recorded Citalopram Hydrobromide [Celexa] 40 mg PO QHS 12/13/16 Fexofenadine HCl [Claudia Allergy] 180 mg PO DAILY 08/15/17 Lubiprostone [Amitiza] 24 mcg PO BID 08/15/17 Omeprazole [Omeprazole] 20 mg PO DAILY 08/15/17 Polyethylene Glycol 3350 [Miralax] 17 gm PO BID 08/15/17 Topiramate [Topamax] 50 mg PO BID 08/15/17 Past Medical History (Chronic Problems): Chronic Problems Depression (Chronic) GERD (gastroesophageal reflux disease) (Chronic) Irritable bowel syndrome (Chronic) Surgical History: appendectomy, cholecystectomy, hysterectomy, - - Surgery for hiatal hernia. 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 Denies: Fever, Night Sweats Cardiovascular: Reports: Chest Discomfort, Chest Discomfort at Rest, Chest Discomfort with Exertion, Shortness of Breath, Shortness of Breath at Rest, Shortness of Breath with Exertion, Lightheadedness Respiratory: Reports: Shortness of Breath. Denies: Cough, Sputum Production, Hemoptysis Gastrointestinal: Reports: Abdominal Discomfort. Denies: Hematemesis, Hematochezia, Melena Genitourinary: Denies: Dysuria, Hematuria Skin: Denies: Rash Subjectve: This is a 71-year-old white female who appears to be resting reasonably comfortably at the moment in no acute distress. Objective: Vital Signs Temp Pulse Resp BP Pulse Ox 98.5 F 56 L 18 158/75 H 100 08/16/17 15:49 08/16/17 15:49 08/16/17 15:49 08/16/17 15:49 08/16/17 15:49 Oxygen Delivery Method Room Air Weight: 161 lb 9.581 oz Body Mass Index (BMI) 26.9 Intake and Output for Last 24 Hours 08/14/17 08/15/17 08/16/17 23:59 23:59 23:59 Intake Total 942 / 942 977 / 977 Output Total 125 / 125 Balance 942 / 942 852 / 852 General: Awake, Alert, Oriented x 3, Cooperative, No Acute Distress HEENT: Atraumatic, Normocephalic, PERRL, EOMI, Sclera Non Icteric Neck: Supple, Good ROM, No JVD Lungs: Clear to auscultation Cardiovascular: Regular Rhythm, Normal S1, Normal S2 Vascular: No Carotid Bruits Abdomen: Bowel Sounds Present, Soft, Non Tender Extremities: No Cyanosis, No Clubbing, No edema Neurological: No Focal Motor or Sensory Deficit Psych/Mental Status: Flat Affect, Depressed 08/16/17 05:20: WBC 4.1 L, RBC 3.83 L, Hgb 11.6 L, Hct 34.3 L, MCV 89.6, MCH 30.3, MCHC 33.8, RDW 13.1, RDW Differential 42.3, Plt Count 213, MPV 9.3, Immature Gran % (Auto) 0.000, Neut % (Auto) 37.7 L, Lymph % (Auto) 50.4 H, Edmunds % (Auto) 8.7, Eos % (Auto) 2.2, Baso % (Auto) 1.0, Absolute Neuts (auto) 1.6 L, Total Counted Not Reportable 08/16/17 05:20: Sodium 142, Potassium 4.1, Chloride 114 H, Carbon Dioxide 22.0, Anion Gap 6, BUN 11, Creatinine 0.85, Est GFR (MDRD) Af Amer 85, Est GFR (MDRD) Non-Af 70, BUN/Creatinine Ratio 12.9, Glucose 85, Calcium 8.5 Rhythm: Sinus rhythm EKG: As noted above ECHO: As noted above Of note, [facility] echocardiogram from 08/28/2011: The left ventricle was reported as normal in size and contractility with an LVEF reported at 55-60% Stress Test: As noted above Of note, [facility] stress nuclear imaging study from 08/28/2011 reported no evidence of stress-induced ischemia in the LV was reported as normal with an LVEF of 76% Cardiac Cath: [facility] from 09/27/2006: The left main coronary artery was reported as no stenosis; the LAD was reported as a small caliber vessel with minimal luminal irregularities; the LCx was reported as nondominant with no angiographically demonstrable CAD; the RCA was reported dominant with no angiographically demonstrable CAD; the left ventricle was reported as having minimal anterior hypokinesis with an LVEF of 50% CXR: 08/15/2017: Preliminary evaluation: No acute cardiopulmonary disease process appreciated: Final report pending Assessment/Plan 1. Sinus bradycardia The patient does have marked sinus bradycardia with ventricular rates between 40 and 50 bpm. It is unclear how long this is present. It is also unclear as to whether this is the underlying etiology for the patient's concerns of fatigue, lightheadedness, etc. She is being evaluated for other cardiovascular disease. Her troponin I level is negative. Her left ventricular wall motion systolic function appear to be preserved based upon her echocardiogram. She will be considered, based upon her symptoms and findings for reevaluation of any obvious evidence of underlying CAD or myocardial ischemia with a follow-up pharmacologic stress nuclear imaging study as she states, based upon her symptoms, that she could not perform a treadmill stress test at this time. Depending upon the findings she may or may not need repeat diagnostic cardiac catheterization. If there are no other etiologies to explain her marked sinus bradycardia and symptoms then consideration be given as to whether or not she may fit from a permanent pacemaker placement. 2. Takotsubo syndrome The patient has this as a remote diagnosis. She has been reassessed with noninvasive studies multiple times. Her overall LV wall motion and systolic function appear to be preserved at this time. She has not required ongoing medical management. 3. Chest discomfort/shortness of breath The patient complains of a variety of chest discomfort as well as shortness of breath. It is unclear whether this is related to ongoing cardiovascular or noncardiovascular issues at this time. Her cardiovascular evaluation has been unremarkable thus far for any acute coronary artery events, etc. However she will undergo further evaluation as noted above for the possibility of developing CAD with ongoing associated symptoms and objective findings. If her cardiovascular studies are unremarkable then she may need to be considered for further noncardiac evaluation. 4. Fatigue The patient complains of progressive fatigue. She is being evaluated both from a cardiovascular and noncardiovascular standpoint for any obvious etiologies to explain her fatigue. It is unclear at this time whether this is truly related to her underlying sinus bradycardia. She will continue evaluation care as noted above. 5. Lightheadedness The patient complains of lightheadedness. There is been concerns as to whether this is related to her marked sinus bradycardia. At the same time the patient's blood pressures been followed and she has not been noted to have hypotension. We will continue evaluation care from a cardiovascular standpoint as noted above. 6. GERD The patient has a history of GERD. She states she underwent hiatal hernia surgery. She states she has not done well since that time with respect to a variety of abdominal discomforts. She continues evaluation per internal medicine and general surgery. 7. Irritable bowel syndrome The patient states she is undergone evaluation in [place] with multiple hospitalizations for her underlying gastrointestinal related symptoms. At the present time she continues evaluation care per internal medicine and general surgery at [facility]. Comment: The above was discussed and reviewed with the patient. This note was generated with [employer] dictation software. It may contain incorrect words, spelling, and punctuation that were not noted in checking the note before signing.
--- NOTE | 2017-08-16 17:37 | CON.PCM_ITS ---
Problem List (1) Sinus bradycardia Status: Acute (2) Takotsubo cardiomyopathy Status: Resolved (3) Chest pain Status: Acute (4) Shortness of breath Status: Acute (5) Fatigue Status: Acute (6) Lightheaded Status: Acute (7) GERD (gastroesophageal reflux disease) Status: Chronic (8) Irritable bowel syndrome Status: Chronic Reason for Consult Date of Consultation: 08/16/17 History of Present Illness: The patient is a 71 year old white female who is referred for evaluation of symptomatic sinus bradycardia superimposed upon a history of a Takotsubo Syndrome remote, along with chest discomfort, shortness of breath, fatigue, lightheadedness, superimposed upon a history of underlying GERD and irritable bowel syndrome. She states that recently she has been noting progressive chest discomfort and shortness of breath. She has become more and more fatigued. She has had episodes of lightheadedness has not lost consciousness. She has had ongoing abdominal discomfort which she relates to a history of GERD and irritable bowel syndrome and a hiatal hernia surgery performed in the [facility]. She states several years ago she was diagnosed with her aforementioned Takotsubo Syndrome at [facility] in [place], [place]. She states she was treated medically for a period of time which included beta- odalys therapy with carvedilol/Coreg. Over time her medications were discontinued. She states she has not had cardiovascular follow-up for at least one year. She presented to the emergency department for the aforementioned symptoms. She was found to have sinus bradycardia with ventricular rates between 40 and 50 bpm. She was not noted to be hypotensive. Her troponin I level was negative. Her ECG demonstrated sinus bradycardia with nonspecific ST and T-wave changes. It has been repeated with continued nonspecific ST and T-wave changes. She is undergone evaluation with a transthoracic echocardiogram. Her left ventricle was thought to be normal with an LVEF of 55% with mild left atrial enlargement, trivial MR, trivial TR, trivial pericardial effusion, and no echocardiographic indications of cardiac tamponade physiology, with an estimated RV systolic pressure of 23 mmHg. She had a nuclear imaging study performed at [facility] on 2014. At that time she exercised for 8 minutes on a Justo protocol achieving 89 % predicted maximal heart rate with a peak blood pressure of 210/105 mmHg and a peak MET capacity of approximately 9 METs. Her peak exercise ECG demonstrated no obvious ECG changes. Nuclear images appear compatible with physiologic apical thinning with no myocardial perfusion changes consider diagnostic for stress-induced myocardial ischemia or previous myocardial injury/infarction. Her gated LVEF was 67%. Of note she had chest discomfort pretest, during exercise, and recovery. She is also being evaluated by general surgery for her abdominal discomfort. She has had abdominal/pelvic CT scans performed. The CT scan with contrast was reported as unremarkable. She has denied any ongoing orthopnea, PND, or peripheral pitting edema. There has been no near syncope or syncope. Past Medical History Allergies/Adverse Reactions: Allergies atorvastatin [From Lipitor] Allergy (Verified 12/13/16 11:29) Swelling Penicillins Allergy (Verified 12/01/15 08:23) Anaphylaxis rosuvastatin [From Crestor] Allergy (Verified 12/13/16 11:29) Swelling Home Medications: Ambulatory Orders Medication Instructions Recorded Citalopram Hydrobromide [Celexa] 40 mg PO QHS 12/13/16 Fexofenadine HCl [Claudia Allergy] 180 mg PO DAILY 08/15/17 Lubiprostone [Amitiza] 24 mcg PO BID 08/15/17 Omeprazole [Omeprazole] 20 mg PO DAILY 08/15/17 Polyethylene Glycol 3350 [Miralax] 17 gm PO BID 08/15/17 Topiramate [Topamax] 50 mg PO BID 08/15/17 Past Medical History (Chronic Problems): Chronic Problems Depression (Chronic) GERD (gastroesophageal reflux disease) (Chronic) Irritable bowel syndrome (Chronic) Surgical History: appendectomy, cholecystectomy, hysterectomy, - - Surgery for hiatal hernia. 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 Denies: Fever, Night Sweats Cardiovascular: Reports: Chest Discomfort, Chest Discomfort at Rest, Chest Discomfort with Exertion, Shortness of Breath, Shortness of Breath at Rest, Shortness of Breath with Exertion, Lightheadedness Respiratory: Reports: Shortness of Breath. Denies: Cough, Sputum Production, Hemoptysis Gastrointestinal: Reports: Abdominal Discomfort. Denies: Hematemesis, Hematochezia, Melena Genitourinary: Denies: Dysuria, Hematuria Skin: Denies: Rash Subjectve: This is a 71-year-old white female who appears to be resting reasonably comfortably at the moment in no acute distress. Objective: Vital Signs Temp Pulse Resp BP Pulse Ox 98.5 F 56 L 18 158/75 H 100 08/16/17 15:49 08/16/17 15:49 08/16/17 15:49 08/16/17 15:49 08/16/17 15:49 Oxygen Delivery Method Room Air Weight: 161 lb 9.581 oz Body Mass Index (BMI) 26.9 Intake and Output for Last 24 Hours 08/14/17 08/15/17 08/16/17 23:59 23:59 23:59 Intake Total 942 / 942 977 / 977 Output Total 125 / 125 Balance 942 / 942 852 / 852 General: Awake, Alert, Oriented x 3, Cooperative, No Acute Distress HEENT: Atraumatic, Normocephalic, PERRL, EOMI, Sclera Non Icteric Neck: Supple, Good ROM, No JVD Lungs: Clear to auscultation Cardiovascular: Regular Rhythm, Normal S1, Normal S2 Vascular: No Carotid Bruits Abdomen: Bowel Sounds Present, Soft, Non Tender Extremities: No Cyanosis, No Clubbing, No edema Neurological: No Focal Motor or Sensory Deficit Psych/Mental Status: Flat Affect, Depressed 08/16/17 05:20: WBC 4.1 L, RBC 3.83 L, Hgb 11.6 L, Hct 34.3 L, MCV 89.6, MCH 30.3, MCHC 33.8, RDW 13.1, RDW Differential 42.3, Plt Count 213, MPV 9.3, Immature Gran % (Auto) 0.000, Neut % (Auto) 37.7 L, Lymph % (Auto) 50.4 H, Ross % (Auto) 8.7, Eos % (Auto) 2.2, Baso % (Auto) 1.0, Absolute Neuts (auto) 1.6 L, Total Counted Not Reportable 08/16/17 05:20: Sodium 142, Potassium 4.1, Chloride 114 H, Carbon Dioxide 22.0, Anion Gap 6, BUN 11, Creatinine 0.85, Est GFR (MDRD) Af Amer 85, Est GFR (MDRD) Non-Af 70, BUN/Creatinine Ratio 12.9, Glucose 85, Calcium 8.5 Rhythm: Sinus rhythm EKG: As noted above ECHO: As noted above Of note, [facility] echocardiogram from 08/28/2011: The left ventricle was reported as normal in size and contractility with an LVEF reported at 55-60% Stress Test: As noted above Of note, [facility] stress nuclear imaging study from 08/28/2011 reported no evidence of stress-induced ischemia in the LV was reported as normal with an LVEF of 76% Cardiac Cath: [facility] from 09/27/2006: The left main coronary artery was reported as no stenosis; the LAD was reported as a small caliber vessel with minimal luminal irregularities; the LCx was reported as nondominant with no angiographically demonstrable CAD; the RCA was reported dominant with no angiographically demonstrable CAD; the left ventricle was reported as having minimal anterior hypokinesis with an LVEF of 50% CXR: 08/15/2017: Preliminary evaluation: No acute cardiopulmonary disease process appreciated: Final report pending Assessment/Plan 1. Sinus bradycardia The patient does have marked sinus bradycardia with ventricular rates between 40 and 50 bpm. It is unclear how long this is present. It is also unclear as to whether this is the underlying etiology for the patient 's concerns of fatigue, lightheadedness, etc. She is being evaluated for other cardiovascular disease. Her troponin I level is negative. Her left ventricular wall motion systolic function appear to be preserved based upon her echocardiogram. She will be considered, based upon her symptoms and findings for reevaluation of any obvious evidence of underlying CAD or myocardial ischemia with a follow- up pharmacologic stress nuclear imaging study as she states, based upon her symptoms, that she could not perform a treadmill stress test at this time. Depending upon the findings she may or may not need repeat diagnostic cardiac catheterization. If there are no other etiologies to explain her marked sinus bradycardia and symptoms then consideration be given as to whether or not she may fit from a permanent pacemaker placement. 2. Takotsubo syndrome The patient has this as a remote diagnosis. She has been reassessed with noninvasive studies multiple times. Her overall LV wall motion and systolic function appear to be preserved at this time. She has not required ongoing medical management. 3. Chest discomfort/shortness of breath The patient complains of a variety of chest discomfort as well as shortness of breath. It is unclear whether this is related to ongoing cardiovascular or noncardiovascular issues at this time. Her cardiovascular evaluation has been unremarkable thus far for any acute coronary artery events, etc. However she will undergo further evaluation as noted above for the possibility of developing CAD with ongoing associated symptoms and objective findings. If her cardiovascular studies are unremarkable then she may need to be considered for further noncardiac evaluation. 4. Fatigue The patient complains of progressive fatigue. She is being evaluated both from a cardiovascular and noncardiovascular standpoint for any obvious etiologies to explain her fatigue. It is unclear at this time whether this is truly related to her underlying sinus bradycardia. She will continue evaluation care as noted above. 5. Lightheadedness The patient complains of lightheadedness. There is been concerns as to whether this is related to her marked sinus bradycardia. At the same time the patient' s blood pressures been followed and she has not been noted to have hypotension. We will continue evaluation care from a cardiovascular standpoint as noted above. 6. GERD The patient has a history of GERD. She states she underwent hiatal hernia surgery. She states she has not done well since that time with respect to a variety of abdominal discomforts. She continues evaluation per internal medicine and general surgery. 7. Irritable bowel syndrome The patient states she is undergone evaluation in [place] with multiple hospitalizations for her underlying gastrointestinal related symptoms. At the present time she continues evaluation care per internal medicine and general surgery at [facility]. Comment: The above was discussed and reviewed with the patient. This note was generated with [employer] dictation software. It may contain incorrect words, spelling, and punctuation that were not noted in checking the note before signing.
[2017-08-16] MEDS: Acetaminophen 325 MG Tablet 650 MG PO (20:22)
--- NOTE | 2017-08-16 23:43 | PN.SURG_ITS ---
Patient Problems: Active and Suspected Problems Sinus bradycardia (Acute) Chest pain (Acute) Shortness of breath (Acute) Fatigue (Acute) Lightheaded (Acute) Subjective: still some nausea, abdominal discomfort - Physical Exam General: Alert, Oriented x3 Lungs: Clear to auscultation, Normal air movement Cardiovascular: Regular rate, No murmurs Abdomen: Bowel Sounds Present, Soft, Non Tender Vital Signs Temp Pulse Resp BP Pulse Ox 99.1 F 47 L 16 128/67 H 97 08/16/17 21:19 08/16/17 21:19 08/16/17 21:19 08/16/17 21:19 08/16/17 21:19 Oxygen Delivery Method Room Air Weight: 73.3 kg Body Mass Index (BMI) 26.9 Intake and Output for Last 24 Hours 08/14/17 08/15/17 08/16/17 23:59 23:59 23:59 Intake Total 942 / 942 1797 / 1797 Output Total 925 / 925 Balance 942 / 942 872 / 872 Laboratory Tests Past 24 Hrs 08/16/17 08/16/17 05:20 05:20 WBC 4.1 L RBC 3.83 L Hgb 11.6 L Hct 34.3 L MCV 89.6 MCH 30.3 MCHC 33.8 RDW 13.1 RDW Differential 42.3 Plt Count 213 MPV 9.3 Immature Gran % (Auto) 0.000 Neut % (Auto) 37.7 L Lymph % (Auto) 50.4 H [place] % (Auto) 8.7 Eos % (Auto) 2.2 Baso % (Auto) 1.0 Absolute Neuts (auto) 1.6 L Absolute Lymphs (auto) 2.08 Total Counted Not Reportable Sodium 142 Potassium 4.1 Chloride 114 H Carbon Dioxide 22.0 Anion Gap 6 BUN 11 Creatinine 0.85 Est GFR (MDRD) Af Amer 85 Est GFR (MDRD) Non-Af 70 BUN/Creatinine Ratio 12.9 Glucose 85 Calcium 8.5 Medical Necessity - Tobacco Use Smoking Status: Never smoker Assessment/Plan All Active Problems Sinus bradycardia (Acute) Chest pain (Acute) Shortness of breath (Acute) Fatigue (Acute) Lightheaded (Acute) Takotsubo cardiomyopathy (Resolved) abdominal pain, likely based on review history much greater than [address] scan initially interpreted as pneumotosis intestinalis. follow- up CAT scan without specific abnormalities. CT scan was reviewed in consideration of the patient's previous surgical history. The stomach and Irma fundoplication appeared to be intact in CT scan review. This point in time, I see no acute abdominal processes and the patient's overall vague complex of symptomatology consistent with a complaint. She has had for many years. One test that was recommended that I did not see obtained in her previous workup was a gastric emptying study. I feel is reasonable proceed with that test. Given the patient's constellation of symptoms, I be reluctant to offer any additional procedures.
[2017-08-17 03:12] VITALS: BP 123/67; PULSE 44; RESP 16; TEMP 36.4; O2SAT 97
[2017-08-17] MEDS: Acetaminophen 325 MG Tablet 650 MG PO (03:14)
[2017-08-17 04:35] VITALS: PULSE 43
[2017-08-17 05:47] VITALS: BP 142/72; PULSE 45; RESP 16; TEMP 36.9; O2SAT 97
--- NOTE | 2017-08-17 05:55 | EKG12_ITS ---
Test Reason : AM EKG Blood Pressure : / mmHG Vent. Rate : 046 BPM Atrial Rate : 046 BPM P-R Int : 162 ms QRS Dur : 098 ms QT Int : 494 ms P-R-T Axes : 062 031 -08 degrees QTc Int : 432 ms Sinus bradycardia Nonspecific ST and T wave abnormality Abnormal ECG Confirmed by GARDENIA SAUER, ALEXEY ([id number]), fashion editor CAROL PAZ ([id number]) on 08/19/2017 1:41:51 PM Referred By: JESSICA Confirmed By:ALEXEY VARNER MD
[2017-08-17 06:19] LABS: Hematocrit 35.2 % (37-47); Hemoglobin 11.9 g/dl (12.0-15.0); Mean Corp Hgb Conc 33.8 g/gl (32-36); Mean Corpuscular Volume 88.7 fL (81-99); Mean Platelet Vol. 9.5 fl (6.2-12.0); Platelet Count 216 K/mm3 (150-450); RBC Distribution Width CV 12.9 % (11.6-14.6); RBC Distribution Width SD 40.9 fl (35.1-43.9); Red Blood Count 3.97 M/mm3 (4.2-5.4); White Blood Count 3.8 K/mm3 (4.4-11.0)
[2017-08-17 06:24] LABS: International Normalized Ratio 1.1; Partial Thromboplast Time 29.7 Seconds (24.1-36.2); Prothrombin Time (Protime)PT. 14.1 SECONDS (11.7-14.9)
[2017-08-17 06:29] LABS: Anion Gap 7 (5-15); BUN 8 mg/dL (7-18); BUN/Creat Ratio 9.7 RATIO (10-20); Calcium,Total 8.5 mg/dL (8.5-10.1); Chloride 117 mmol/L (98-107); Creatinine, Serum 0.82 mg/dL (0.55-1.02); EST Glomerular Filtration Rate 73 mL/min (>60); Est Glom Filt Rate - Afr Amer 88 mL/min (>60); Glucose 87 mg/dL (74-106); Potassium 3.8 mmol/L (3.5-5.1); Sodium Level 145 mmol/L (136-145)
[2017-08-17 06:38] LABS: Scan Indicated on CBC? Y/N NO
--- NOTE | 2017-08-17 08:57 | STRESSREP_ITS ---
Stress Test Report Pharmacologic myocardial perfusion stress test. 71-year-old lady with a history of bradycardia. Stress protocol: EKG demonstrates sinus bradycardia with a rate of 49 bpm normal intervals and noted resting blood pressure is 162/90 mmHg. 0.4 mg regadenoson was infused per usual protocol followed by rapid intravenous saline flush injection. The maximum heart rate attained was 75 bpm which was 50% of maximum predicted heart rate the maximum workload attained was 1 metabolic equivalent. At rest there were no ST or T-wave changes noted suggest ischemia at peak exercise no ST or T- wave changes were noted suggest ischemia. The final blood pressure is 132/74 mmHg. Myocardial perfusion protocol. 11.3 mCi of technetium 99m sestamibi was injected at rest. 0.4 mg regadenoson was infused per usual protocol. Peak infusion 33.4 mCi of technetium 99m sestamibi was injected stress images were obtained stress and rest images were reconstructed and compared in the short axis vertical long and horizontal long axis. Gated images were also obtained pre- Perfusion SPECT analysis: Review of the stress images demonstrate normal uptake of tracer noted in all areas of myocardium that is a small area in the apex on the stress images as well as the resting images which demonstrate reduced perfusion suggestive of thinning. No obvious ischemia is noted and no obvious infarct is present. Gated SPECT analysis. The gated ejection fraction is noted to be 65%. Conclusion: Normal pharmacologic myocardial perfusion stress test. Preserved ejection fraction.
[2017-08-17 09:24] VITALS: BP 126/67; PULSE 51; RESP 18; TEMP 37.2; O2SAT 97
[2017-08-17] MEDS: 0.9% NaCl Peripheral Flush Adult/Peds IV (09:32)
[2017-08-17] MEDS: Enoxaparin 30 MG/0.3 ML Syringe SC (09:35)
[2017-08-17 11:29] VITALS: PULSE 47
--- NOTE | 2017-08-17 12:21 | DCINST_ITS ---
- Discharge Diagnoses Current Active Problems: Current Active and Chronic Problems Sinus bradycardia (Acute) Chest pain (Acute) Shortness of breath (Acute) Fatigue (Acute) Lightheaded (Acute) Depression (Chronic) GERD (gastroesophageal reflux disease) (Chronic) Irritable bowel syndrome (Chronic) Reason(s) for Visit for Discharge Instructions: Fatigue You will use the following diet at home:: Cardiac Your food should be the consistency of: Regular Your liquids should be the consistency of: Regular/Thin Discharge Activity: Return to Normal Activity Additional Instructions: Continue with your medications. You will be discharged with a 30 days event monitor. Follow-up with Dr. Heath in office if you have any complaints within this time; otherwise follow-up with him in 4- 6 weeks. You will need a gastric emptying study done within a week. Keep yourself hydrated. Allergies/Adverse Reactions: Allergies atorvastatin [From Lipitor] Allergy (Verified 12/13/16 11:29) Swelling Penicillins Allergy (Verified 12/01/15 08:23) Anaphylaxis rosuvastatin [From Crestor] Allergy (Verified 12/13/16 11:29) Swelling Medications to take at Discharge Citalopram Hydrobromide [Celexa] 40 mg PO QHS 12/13/16 Fexofenadine HCl [Claudia Allergy] 180 mg PO DAILY 08/15/17 Lubiprostone [Amitiza] 24 mcg PO BID 08/15/17 Omeprazole 20 mg PO DAILY 08/15/17 Polyethylene Glycol 3350 [Miralax] 17 gm PO BID 08/15/17 Topiramate [Topamax] 50 mg PO BID 08/15/17 Primary Care Physician: Anatoly Zuniga MD [Primary Care Provider] - Please follow up with your Primary Care Physician in: within 2 weeks Please Follow Up With: Andrés Heath MD When: within 2 weeks Please Follow Up With: Chris Falcon MD When: within 2 weeks Proposed Discharge Date: 08/17/17
--- NOTE | 2017-08-17 12:32 | DS.PCM_ITS ---
Discharge Date and Diagnosis Date of Admission: 08/15/17 Date of Discharge: 08/17/17 - Primary Discharge Diagnosis Active and Suspected Problems Sinus bradycardia (Acute) Chest pain (Acute) Shortness of breath (Acute) Fatigue (Acute) Lightheaded (Acute) - Secondary Discharge Diagnosis Chronic Problems Depression (Chronic) GERD (gastroesophageal reflux disease) (Chronic) Irritable bowel syndrome (Chronic) Hospital Course and Treatment Imaging Results: 08/17/17 05:55 Nuclear Stress Test - Chemical [NM] AM (NON MEDS) Operations: None Procedures: None Summary of Care Provided: 71 years old female patient admitted with multiple complaints including weakness , fatigue, dizziness, near syncope and abdominal pain, found to have bradycardia on EKG as well as pneumatosis of the right and proximal transverse colon. 1. Symptomatic bradycardia, unclear etiology, h/o takusubo cardiomyopathy, not on beta-blockers or calcium channel blockers, HR ~40s, cardiology consulted, 2D echo normal, patient was discharged home on a 30 day event monitor and she will follow up with Dr. Heath in the outpatient in 4-6 weeks. 2. Abdominal pain, resolving, initial CT of the abdomen showed pneumatosis of the right colon/transverse colon, repeat CT of abdomen and pelvis with oral contrast was negative for any pneumatosis, general surgery consulted. 3. Debility secondary to above, TSH is normal, patient will receive further skilled therapy in the outpatient 4. Irritable bowel syndrome 5. History of Takotsubo cardiomyopathy, no evidence of acute CHF 6. GERD 7. Depression, on Celexa. Discharge Activity: Return to Normal Activity Home Medications: Medications to take at Discharge Citalopram Hydrobromide [Celexa] 40 mg PO QHS 12/13/16 Fexofenadine HCl [Claudia Allergy] 180 mg PO DAILY 08/15/17 Lubiprostone [Amitiza] 24 mcg PO BID 08/15/17 Omeprazole 20 mg PO DAILY 08/15/17 Polyethylene Glycol 3350 [Miralax] 17 gm PO BID 08/15/17 Topiramate [Topamax] 50 mg PO BID 08/15/17 Primary Care Physician: Anatoly Zuniga MD [Primary Care Provider] - Please follow up with your Primary Care Physician in: within 2 weeks Please Follow Up With: Andrés Heath MD When: within 2 weeks Please Follow Up With: Chris Falcon MD When: within 2 weeks Medical Necessity - Tobacco Use Smoking Status: Never smoker Meaningful Use Info Meaningful Use Diagnoses (Choose all that apply): None applicable Code Visit Inpatient E&M: 98799 Disch Hosp
--- NOTE | 2017-08-17 13:18 | CASEMGMT ---
Therapy recommending further skilled therapy at this time. This RN CM to room to speak with pt regarding same and per pt, 'my doesn't really like people coming into the house and I normally get a lot of exercise at home.' Pt declines HHC at this time and states will f/u with PCP if she feels she needs HHC or outpt therapy once home. Pt voices no further questions/concerns/needs at this time. Pt awaiting dispo. SStaten IVETH PATEL
== END 2017-08-17 13:56 | disposition home or self-care (01) | DRG 309 ==
LOC: ED 13:42 → PCU 18:04
PROVIDERS: Admitting Provider Hospitalist; Emergency Provider Emergency Medicine; Family Provider Family Medicine; PCP Family Medicine; Visit Provider Internal Medicine
DX: R00.1 Bradycardia, unspecified (principal); I51.81 Takotsubo syndrome; K63.89 Other specified diseases of intestine; F32.9 Major depressive disorder, single episode, unspecified; K21.9 Gastro-esophageal reflux disease without esophagitis; K58.0 Irritable bowel syndrome with diarrhea; Z90.49 Acquired absence of other specified parts of digestive tract; Z86.73 Personal history of transient ischemic attack (TIA), and cerebral infarction without residual deficits; Z90.710 Acquired absence of both cervix and uterus
CPT/HCPCS: 36415; 70450; 71046; 74176; 74177; 78452; 80048; 80053; 81001; 82962; 83605; 83690; 83880; 84443; 84484; 85025; 85027; 85610; 85730; 87086; 87088; 93005; 93017; 93306; 97162; 97166; 97530; 97802; 99284; A9500; J7030; J7040; Q9967; A4216; J2785

== ENCOUNTER → 2017-08-31 10:00 | Outpatient (CLI) | payer MEDICARE, OTHER, SELFPAY ==
--- NOTE | 2017-08-31 10:03 | NM_ITS ---
CLINICAL: 71-year-old female with reported history of abdominal pain and nausea. SEMI-SOLID PHASE 99m Tc SULFUR COLLOID GASTRIC EMPTYING STUDY COMPARISON: CT of the abdomen-pelvis report 08/15/2017 FINDINGS: The patient was administered 1.1 mCi of 99m Tc sulfur colloid mixed with oatmeal and consumed per os. Image acquisitions in the anterior-posterior projections for a total of 60 minutes. There is prompt visualization of the stomach. There is no gastroesophageal reflux identified. The T1/2 linear fit was calculated to be 40.27 minutes, (Normal: 12-56 minutes). NM/Gastric Emptying Study IMPRESSION: 1. NORMAL 99m Tc sulfur colloid semi-solid phase (oatmeal) gastric emptying imaging examination. A. There is normal and preserved semi-solid phase gastric emptying compared to normal controls with maintained first order kinetics throughout all components of the examination. (Álvaro et al, J Nucl Med Tech 38: 186, 2010). Electronically Signed: Chris Rodriguez DO at 10:21 EDT Tel , Service support ,
== END ==
PROVIDERS: Family Provider Family Medicine; PCP Family Medicine; Visit Provider Internal Medicine
DX: R10.9 Unspecified abdominal pain (principal); G89.29 Other chronic pain
CPT/HCPCS: 78264; A9541

== ENCOUNTER → 2017-09-16 14:36 | Outpatient (CLI) | payer MEDICARE, OTHER, SELFPAY ==
[2017-09-16 15:36] LABS: Absolute Lymphocyte Count 2.32 X10^3/ul (0.83-4.51); Absolute Neutrophil Count 2.2 X10^3/uL (2.0-7.7); Anion Gap 7 (5-15); BUN 7 mg/dL (7-18); BUN/Creat Ratio 8.2 RATIO (10-20); Basophil# 0.05 X10^3/uL; Calcium,Total 9.1 mg/dL (8.5-10.1); Chloride 107 mmol/L (98-107); Creatinine, Serum 0.85 mg/dL (0.55-1.02); EST Glomerular Filtration Rate 70 mL/min (>60); Eosinophil# 0.08 X10^3/uL; Eosinophils% 1.6 % (0-5); Est Glom Filt Rate - Afr Amer 85 mL/min (>60); Glucose 81 mg/dL (74-106); Hematocrit 39.2 % (37-47); Hemoglobin 12.8 g/dl (12.0-15.0); Lymphocyte # 2.32 X10^3/ul (4.0); Lymphocyte % 46.2 % (19-41); Mean Corp Hgb Conc 32.7 g/gl (32-36); Mean Corpuscular Hgb 29.3 pg (27.0-32.0); Mean Corpuscular Volume 89.7 fL (81-99); Mean Platelet Vol. 9.4 fl (6.2-12.0); Monocyte# 0.41 X10^3/uL; Monocyte% 8.2 % (0-10); Neutrophil # 2.15 X10^3/uL (2.7-7.7); Neutrophil % 42.8 % (47-70); Platelet Count 221 K/mm3 (150-450); Potassium 4.1 mmol/L (3.5-5.1); RBC Distribution Width CV 13.3 % (11.6-14.6); RBC Distribution Width SD 43.7 fl (35.1-43.9); Red Blood Count 4.37 M/mm3 (4.2-5.4); Sodium Level 141 mmol/L (136-145)
[2017-09-16 15:43] LABS: POSITIVE COUNT NO; POSITIVE DIFFERENTIAL NO; POSITIVE MORPHOLOGY NO
[2017-09-16 15:54] LABS: Partial Thromboplast Time 25.5 Seconds (24.1-36.2); Prothrombin Time (Protime)PT. 13.4 SECONDS (11.7-14.9)
== END ==
PROVIDERS: Family Provider Family Medicine; PCP Family Medicine; Visit Provider Internal Medicine Cardiovascular Disease
DX: R07.9 Chest pain, unspecified (principal); R00.1 Bradycardia, unspecified
CPT/HCPCS: 36415; 80048; 85025; 85610; 85730

== ENCOUNTER → 2017-10-04 08:21 | Day surgery (SDC) | payer MEDICARE, OTHER, SELFPAY ==
[2017-10-03 09:06] VITALS: BMI 27.1
[2017-10-04 12:11] LABS: ACT Activated Clotting Time 158 sec (74-137)
--- NOTE | 2017-10-04 15:49 | CL.D_ITS ---
Patient Name: DAYSI SHABAZZ Study Date: 10/04/2017 Performing: Andrés Heath MD Ht: 64.56 inches 164 cm : 1945 Wt: 160.94 lbs 73 kg Age: 71 Gender: female BSA: 1.79 PROCEDURE(S) PERFORMED [id number]/COR/LV [id number], CORONARY OR GRAFT, INITIAL VESSEL [id number], CORONARY OR GRAFT, INITIAL VESSEL CLINICAL PROFILE AND INDICATIONS Indications: Cardiac Arrythmia, Cardiomyopathy, Suspected CAD Heart Failure: None Stress/Imaging Stress Test w/SPECT MPI: Yes Result: NegativeStress Test with SPECT MPI: Negative Angina Classification Anginal Classification w/in 2 Weeks: CCS III CAD Presentations: Other: Chest pain; shortness of breath; fatigue CONCLUSIONS Elevated Left Ventricular End Diastolic Pressure Normal LV size, wall motion,and systolic function LVEF: by LV gram 55 % Single vessel CAD of the RCA RECOMMENDATIONS Risk factor modification Medical therapy Staged for IVUS DESCRIPTION OF PROCEDURE The patient arrived to the procedure lab. The risks and benefits of the procedure as well as a full d escription of our services here and current unavailability of surgical backup were fully explained to the patient and/or their significant other prior to the catheterization. The Timeout was completed, verifying the correct patient and procedure. The patient's procedural site was prepped and draped in the usual fashion. Local anesthetic was given subcutaneously to right radial region with Lidocaine 2% . Using a modified Seldinger technique, arterial access was obtained via the right radial artery, a 6 Fr sheath was inserted. Right Coronary Artery selective angiography was then performed in multiple v iews using a 5 Fr. 4.0 [place] catheter. Left Coronary Artery selective angiography was performed in mu ltiple views using a 4 Fr. JL3.5 catheter. Left Ventriculography was performed in MORALES projection usin g a 5 Fr. Pigtail catheter. LV to AO pullback pressures were then recorded. Right Coronary Artery ronald ective angiography was then performed in multiple views using a 4 Fr. 3DRC catheter.The arterial frazier th was pulled and a TR Band was applied for hemostasis 16cc air inserted CORONARY ANGIOGRAPHY DOMINANCE: Right Dominant LEFT HEART ASSESSMENT Left Ventricular Ejection Fraction: by LV Gram 55 % Normal LV wall motion Elevated Left Ventricular End Diastolic Pressure LVEDP: 33 mmHg LEFT MAIN: Angiographically normal LEFT ANTERIOR DECENDING ARTERY: Mild luminal irregularities CIRCUMFLEX ARTERY: PROX CIRC: Mild luminal irregularities OM 1: Proximal - Mild luminal irregularities RIGHT CORONARY ARTERY: PROX RCA: Hazy: 50-75 % Stenosis MID RCA: Mild luminal irregularities RIGHT AV SEGMENT: Mild luminal irregularities VALVE FINDINGS: Normal Aortic Valve function Normal Mitral Valve function AORTIC ROOT: Angiographically normal COMPLICATIONS No Complications PROCEDURE MEDICATIONS Fentanyl 50 mcg IV Versed 1 mg IV Fentanyl 50 mcg IV Versed 1 mg IV Oxygen: 2 L/min via nasal cannula Oxygen: 3 L/min via nasal cannula Heparin diluted in 23cc Heparinized saline. Patient given 10cc IA of this solution. 10/04/2017 10:05: 31 Heparin 3000 unit(s) IV 10/04/2017 10:52:05 Nitro Tab 0.4 mg PO 10/04/2017 11:33:28 Verapamil 2.5mg, Ntg 100mcgs, 2000 units of Heparin diluted in 23cc Heparinized saline. Patient give n 10cc IA of this solution. 10/04/2017 10:05:31 SUMMARY OF HEMODYNAMIC DATA Time AIR REST ECG 08:44:07 AO 133/79 (102) SA 10:09:13 LV 179/14, 33 10:25:11 LV 179/14, 34 10:25:17 LV 167/11, 32 10:27:53 LVp 168/12, 33 10:28:05 AOp 169/80 (112) 10:28:10 RM AIR REST 12:06:54 Signed By Andrés Heath MD On 10/04/2017 15:48:32 Andrés Heath MD
[2023-05-13 14:45] LABS: ACT Activated Clotting Time 158 sec (74-137)
== END ==
PROVIDERS: Family Provider Family Medicine; PCP Family Medicine; Visit Provider Internal Medicine Cardiovascular Disease
DX: R07.9 Chest pain, unspecified (principal); R06.02 Shortness of breath; R53.83 Other fatigue; R42 Dizziness and giddiness; R00.1 Bradycardia, unspecified; I51.81 Takotsubo syndrome; K21.9 Gastro-esophageal reflux disease without esophagitis; F32.9 Major depressive disorder, single episode, unspecified; Z79.899 Other long term (current) drug therapy
CPT/HCPCS: 85347; 92978; 93458; 93571; 99152; 99153; J7040; Q9967; C1753; C1769; C1887; C1894

== ENCOUNTER 2017-10-11 17:16 | Inpatient (IN) | payer MEDICARE, OTHER, SELFPAY ==
[2017-10-11] VITALS (8 sets, daily range): BP systolic 131–168; BP diastolic 74–97; PULSE 52–75; RESP 12–20; TEMP 36.8; O2SAT 96–98; BMI 27.6; BMI 27.3
--- NOTE | 2017-10-11 17:50 | RAD_ITS ---
STUDY: X-RAY CHEST REASON FOR EXAM: Female, 71 years old. Chest pain TECHNIQUE: Frontal view of the chest COMPARISON: 08/15/2017 FINDINGS: The lungs are clear. There are no pleural effusions. There is no pneumothorax. The heart is normal in size. The visualized osseous structures are within normal limits. RAD/Chest 1 View (Portable) IMPRESSION: No acute thoracic pathology. Electronically Signed: Darius Mccullough, at 18:20 EDT Tel , Service support ,
[2017-10-11 18:06] LABS: Absolute Lymphocyte Count 2.82 X10^3/ul (0.83-4.51); Absolute Neutrophil Count 2.3 X10^3/uL (2.0-7.7); Basophil# 0.04 X10^3/uL; Basophil% 0.7 % (0-1); Eosinophil# 0.08 X10^3/uL; Eosinophils% 1.4 % (0-5); Hematocrit 39.5 % (37-47); Hemoglobin 13.1 g/dl (12.0-15.0); Lymphocyte # 2.82 X10^3/ul (4.0); Lymphocyte % 48.8 % (19-41); Mean Corp Hgb Conc 33.2 g/gl (32-36); Mean Corpuscular Hgb 29.5 pg (27.0-32.0); Mean Platelet Vol. 9.4 fl (6.2-12.0); Monocyte# 0.52 X10^3/uL; Neutrophil # 2.31 X10^3/uL (2.7-7.7); Neutrophil % 39.9 % (47-70); Platelet Count 255 K/mm3 (150-450); RBC Distribution Width CV 13.2 % (11.6-14.6); RBC Distribution Width SD 42.9 fl (35.1-43.9); Red Blood Count 4.44 M/mm3 (4.2-5.4); White Blood Count 5.8 K/mm3 (4.4-11.0)
[2017-10-11 18:18] LABS: POSITIVE COUNT NO; POSITIVE DIFFERENTIAL NO; POSITIVE MORPHOLOGY NO
[2017-10-11 18:24] LABS: Anion Gap 7 (5-15); BUN 15 mg/dL (7-18); BUN/Creat Ratio 16.8 RATIO (10-20); Calcium,Total 9.5 mg/dL (8.5-10.1); Chloride 107 mmol/L (98-107); Creatinine, Serum 0.89 mg/dL (0.55-1.02); EST Glomerular Filtration Rate 66 mL/min (>60); Est Glom Filt Rate - Afr Amer 80 mL/min (>60); Estimated Creatinine Clearance 50.79 ml/min; Glucose 82 mg/dL (74-106); Potassium 4.1 mmol/L (3.5-5.1); Sodium Level 140 mmol/L (136-145)
[2017-10-11 19:23] LABS: D-Dimer Quantitative (DVT/PE) 1.78 FEU/ug/m (0.27-0.49)
--- NOTE | 2017-10-11 19:25 | CT_ITS ---
STUDY: CTA CHEST REASON FOR EXAM: Female, 71 years old. Right sided pain RADIATION DOSAGE (If Supplied By Facility): CTDIvol = ( 8.02 ) mGy, DLP = ( 334.26 ) mGycm TECHNIQUE: The examination was performed with the intravenous administration of 75ML ml of Isovue 370 contrast material. Post-processing of the angiographic images was performed, with multiplanar reformation and 3D reconstruction. Individualized dose optimization techniques were used for this CT. COMPARISON: None. FINDINGS: There are no pulmonary infiltrates or pleural effusions. There is no pneumothorax. There are no filling defects in the pulmonary arteries to suggest pulmonary embolus. There is no evidence of thoracic aortic aneurysm or dissection. The heart and pericardium are within normal limits. There is no thoracic lymphadenopathy. There are calcified mediastinal and hilar lymph nodes, consistent with prior granulomatous disease. Images through the upper abdomen demonstrate splenic granulomata. There are no destructive osseous lesions. CT/CTA Chest W/WO Contrast IMPRESSION: No evidence of pulmonary embolus or other acute thoracic disease. Evidence of prior granulomatous disease. Electronically Signed: Darius Mccullough, at 20:21 EDT Tel , Service support ,
--- NOTE | 2017-10-11 20:43 | ED.VISSUMM ---
- ER Visit Summary Date of Service: 10/11/17 Chief Complaint: [Chest pain] History of Present Illness: The patient is a 71 F [presents the emergency department complaint of chest discomfort that started about a week ago. Patient's had pain for longer than that but she was admitted a week ago and had a heart catheterization and was told she had a blockage in 1 of her arteries of about 60% but no intervention was performed. Patient since going home is continuing to have chest pain daily with exertion and activity. Patient has not had any nausea or vomiting. She denies any diaphoresis. She denies recent travel or surgery.] Physical Examination: [HEENT-PERRLA, EOMI. Cranial nerves II through XII grossly intact. TMs clear. Mucous membranes moist. No adenopathy. Cardiovascular-regular rate and rhythm without murmur or ectopy Lungs-clear to auscultation, chest wall stable without crepitus or subcu emphysema Abdomen-normoactive bowel sounds, soft, nontender, no rebound or rigidity, no peritoneal signs. Extremities-intact ?4, normal range of motion, normal pulses, atraumatic] Test Results: [EKG obtained shows sinus rhythm with ventricular rate [address] changes noted inferiorly as well as anterior laterally. Compared with prior EKG some of the subtle changes were present on EKG dated August 17, 2017 however the T-wave inversion seem more symmetrical currently. CBC with differential obtained showed a white count 5.8, hemoglobin 13, hematocrit 39.5, placed 255. Chemistries unremarkable. Troponin was less than 0.015. D-dimer obtained was elevated therefore CT of the chest obtained was negative for PE or dissection.] Emergency Department Course and Treatment: [Case was discussed with field support engineer on-call Dr. Ewing who asked that we admit patient start patient on Plavix] Treatment Plan: [Admit for further workup and evaluation of chest pain] Disposition: [Admit] Impression: [Chest pain-rule out acute coronary syndrome] This note was generated with [employer] dictation software. It may contain incorrect words, spelling, and punctuation that were not noted in review of the chart prior to signing ED Disposition - Plan for ED Patient: Chief Complaint: Chest Pain Referrals: Anatoly Zuniga MD [Primary Care Provider] -
--- NOTE | 2017-10-11 20:46 | ED.DCSUM_ITS ---
- ER Visit Summary Date of Service: 10/11/17 Chief Complaint: [Chest pain] History of Present Illness: The patient is a 71 F [presents the emergency department complaint of chest discomfort that started about a week ago. Patient 's had pain for longer than that but she was admitted a week ago and had a heart catheterization and was told she had a blockage in 1 of her arteries of about 60% but no intervention was performed. Patient since going home is continuing to have chest pain daily with exertion and activity. Patient has not had any nausea or vomiting. She denies any diaphoresis. She denies recent travel or surgery.] Physical Examination: [HEENT-PERRLA, EOMI. Cranial nerves II through XII grossly intact. TMs clear. Mucous membranes moist. No adenopathy. Cardiovascular-regular rate and rhythm without murmur or ectopy Lungs-clear to auscultation, chest wall stable without crepitus or subcu emphysema Abdomen-normoactive bowel sounds, soft, nontender, no rebound or rigidity, no peritoneal signs. Extremities-intact ?4, normal range of motion, normal pulses, atraumatic] Test Results: [EKG obtained shows sinus rhythm with ventricular rate [address] changes noted inferiorly as well as anterior laterally. Compared with prior EKG some of the subtle changes were present on EKG dated August 17, 2017 however the T-wave inversion seem more symmetrical currently. CBC with differential obtained showed a white count 5.8, hemoglobin 13, hematocrit 39.5, placed 255. Chemistries unremarkable. Troponin was less than 0.015. D-dimer obtained was elevated therefore CT of the chest obtained was negative for PE or dissection.] Emergency Department Course and Treatment: [Case was discussed with [employer] principal on-call Dr. Ewing who asked that we admit patient start patient on Plavix] Treatment Plan: [Admit for further workup and evaluation of chest pain] Disposition: [Admit] Impression: [Chest pain-rule out acute coronary syndrome] This note was generated with [employer] dictation software. It may contain incorrect words, spelling, and punctuation that were not noted in review of the chart prior to signing ED Disposition - Plan for ED Patient: Chief Complaint: Chest Pain Referrals: Anatoly Zuniga MD [Primary Care Provider] -
[2017-10-11] MEDS: Clopidogrel Bisulfate 300 MG Tablet PO (21:29)
--- NOTE | 2017-10-11 21:36 | HP.PCM_ITS ---
Problem List (1) Unstable angina Status: Acute (2) Depression Status: Chronic (3) GERD (gastroesophageal reflux disease) Status: Chronic History of Present Illness Date of Admission: 10/11/17 Chief Complaint: Chest pain ?1 week. The patient is a 71 year old F with a significant history of hypertension, hyperlipidemia, GERD, constipation, Takotsubo cardiomyopathy, depression and anxiety who presents with progressively worsening chest pain that started about a week ago. Her chest pain radiates to her right shoulder and back. She denies any diaphoresis. She has had nausea since about August of this year. Because of lightheadedness;shortness of breath; and a feeling of a squeeze around her heart; she had a awake overnight monitor placed for about 30 days. And because of abnormal rhythm found on telemetry, a heart cath was done about a week ago. Her heart cath had a 50-75% blockage in her RCA. No percutaneous intervention was done at that time. At this visit, condition was consulted by the ED doctor. Upon cardiology recommendation patient was loaded with Plavix. ED doctor reported cardiology will see patient in a.m. A CTA following an elevated d-dimer was unremarkable. Past Medical History Past Medical History (Chronic Problems): Chronic Problems (Last Updated 10/05/17 @ 09:01 by Radha Warren) Depression (Chronic) GERD (gastroesophageal reflux disease) (Chronic) Irritable bowel syndrome (Chronic) Medical History: Medical History (Last Updated 10/05/17 @ 09:01 by Radha Warren) Sinus node dysfunction (Acute) I49.5 Sinus bradycardia (Acute) R00.1 Chest pain (Acute) R07.9 Shortness of breath (Acute) R06.02 Fatigue (Acute) R53.83 Lightheaded (Acute) R42 Takotsubo cardiomyopathy (Resolved) I51.81 Depression (Chronic) F32.9 GERD (gastroesophageal reflux disease) (Chronic) K21.9 Irritable bowel syndrome (Chronic) K58.9 Allergies atorvastatin [From Lipitor] Allergy (Verified 10/11/17 17:20) Swelling Penicillins Allergy (Verified 10/11/17 17:20) Anaphylaxis rosuvastatin [From Crestor] Allergy (Verified 10/11/17 17:20) Swelling Home Medications: Ambulatory Orders Medication Instructions Recorded Citalopram Hydrobromide [Celexa] 40 mg PO QHS 12/13/16 Fexofenadine HCl [Claudia Allergy] 180 mg PO DAILY 08/15/17 Lubiprostone [Amitiza] 24 mcg PO BID 08/15/17 Omeprazole 20 mg PO BID 08/15/17 Polyethylene Glycol 3350 [Miralax] 17 gm PO BID 08/15/17 Naproxen 250 mg PO QHS 10/11/17 Surgical History: Surgical History (Last Reviewed 09/16/17 @ 13:18 by Radha Warren) History of cholecystectomy Z90.49 History of hernia surgery Z98.890, Z87.19 History of hysterectomy Z90.710 History of oophorectomy History of sinus surgery Z98.890 Hx of appendectomy Z90.49 Surgical History: appendectomy, cholecystectomy, hysterectomy, - - Surgery for hiatal hernia. 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 Denies: Chills, Fever, Weight Change HEENT: Denies: Head Aches, Sinus Congestion, Sinus Drainage Cardiovascular: Reports: Chest Pain Respiratory: Reports: Shortness of Breath, Sputum production Gastrointestinal: Denies: Abdominal Pain, Nausea, Vomiting Genitourinary: Denies: Dysuria Musculoskeletal: Denies: Joint Pain, Joint Tenderness Skin: Denies: Rash, Wounds Neurological: Denies: Numbness, Tingling, Focal weakness Psychiatric: Denies: Homicidal Ideations, Suicidal Ideations Hematologic/ Lymphatic: Denies: Easy Bruising, Easy Bleeding VTE Information - Inpt Only VTE Present on Admission: No VTE Mechan Device Prophylaxis: None VTE Pharm Prophylaxis ordered?: Yes Patient Problems: Active and Suspected Problems (Last Updated 10/05/17 @ 09:01 by Radha Warren ) Unstable angina (Acute) - Physical Exam General: Alert, Oriented x3, Cooperative HEENT: Atraumatic, PERRLA, EOMI, Normocephalic Neck: Supple, No JVD, Negative Carotid Bruits Lungs: Clear to auscultation, Normal air movement Cardiovascular: Regular rate Abdomen: Bowel Sounds Present, Soft, Non Tender Extremities: No edema, Capillary Refill Less than 3 Seconds Skin: No rashes, No breakdown Musculoskeletal: No Tenderness to Palpation of Joints or Extremities Neurological: Cranial nerves II-XII grossly intact Psych/Mental Status: Normal Affect - Tender on the chest. Vital Signs Temp Pulse Resp BP Pulse Ox 98.2 F 58 L 15 168/97 H 96 10/11/17 17:18 10/11/17 21:02 10/11/17 21:02 10/11/17 21:02 10/11/17 21:02 Oxygen Flow Rate (L/min) 2 Oxygen Delivery Method Room Air Weight: 73.028 kg Body Mass Index (BMI) 27.6 Finger Stick Blood Glucose 93 Laboratory Tests Past 24 Hrs 10/11/17 10/11/17 10/11/17 17:22 17:22 19:03 WBC 5.8 RBC 4.44 Hgb 13.1 Hct 39.5 MCV 89.0 MCH 29.5 MCHC 33.2 RDW 13.2 RDW Differential 42.9 Plt Count 255 MPV 9.4 Immature Gran % (Auto) 0.200 Neut % (Auto) 39.9 L Lymph % (Auto) 48.8 H [place] % (Auto) 9.0 Eos % (Auto) 1.4 Baso % (Auto) 0.7 Absolute Neuts (auto) 2.3 Absolute Lymphs (auto) 2.82 Total Counted Not Reportable D-Dimer Quant (PE/DVT) 1.78 H* Sodium 140 Potassium 4.1 Chloride 107 Carbon Dioxide 26.0 Anion Gap 7 BUN 15 Creatinine 0.89 Estim Creat Clear Calc 50.79 Est GFR (MDRD) Af Amer 80 Est GFR (MDRD) Non-Af 66 BUN/Creatinine Ratio 16.8 Glucose 82 Calcium 9.5 Troponin I < 0.015 Assessment/Plan All Active Problems (Last Updated 10/05/17 @ 09:01 by Radha Warren) Unstable angina (Acute) Sinus node dysfunction (Acute) Sinus bradycardia (Acute) Chest pain (Acute) Shortness of breath (Acute) Fatigue (Acute) Lightheaded (Acute) Takotsubo cardiomyopathy (Resolved) The patient is a 71 year old F with a significant history of hypertension, hyperlipidemia, GERD, constipation, Takotsubo cardiomyopathy, depression and anxiety who presents with progressively worsening chest pain likely representing unstable angina. Unstable angina Flipped T-wave in anterior in leads CTA chest negative Admit to a monitored bed on PCU Patient received Plavix 300 mg ?1 at emergency department Aspirin 325?1 ordered ASA 81 mg p.o. daily Serial cardiac enzymes Stat EKG as needed for chest pain Dr. Ewing to us to see patient in a.m. for further evaluation Chronic constipation Continue Lubiprostone Depression Continue Celexa GERD Continue Protonix DVT prophylaxis Subcutaneous heparin Code Visit OBSV E&M: 85947 Initial observation care L3
--- NOTE | 2017-10-11 21:52 | NURSING ---
Called ED inspector structural bondingYamel LAZARO at this time to confirm Pt okay to come to PCU.
--- NOTE | 2017-10-11 22:05 | EKG12_ITS ---
Test Reason : ADM EKG Blood Pressure : / mmHG Vent. Rate : 067 BPM Atrial Rate : 067 BPM P-R Int : 158 ms QRS Dur : 094 ms QT Int : 454 ms P-R-T Axes : 059 019 012 degrees QTc Int : 479 ms Normal sinus rhythm Nonspecific ST and T wave abnormality Prolonged QT Abnormal ECG Confirmed by GARDENIA SAUER, ALEXEY ([id number]), assignment desk editor CAROL PAZ ([id number]) on 10/14/2017 2:06:55 PM Referred By: AISHA Confirmed By:ALEXEY VARNER MD
[2017-10-11] MEDS: Acetaminophen 325 MG Tablet 650 MG PO (23:38)
[2017-10-11] MEDS: Heparin Injection (Vial) 5,000 UNIT/ML VIAL 5000 UNIT SC (23:38)
[2017-10-11] MEDS: Aspirin E.C. 325 MG Tablet PO (23:38)
[2017-10-11] MEDS: Citalopram 40 MG TABLET PO (23:38)
[2017-10-12] VITALS (27 sets, daily range): BP systolic 97–179; BP diastolic 43–103; PULSE 50–75; RESP 13–20; TEMP 36.6–37; O2SAT 93–100; BMI 27.3
[2017-10-12 04:40] LABS: Hematocrit 36.3 % (37-47); Hemoglobin 12.1 g/dl (12.0-15.0); Mean Corp Hgb Conc 33.3 g/gl (32-36); Mean Corpuscular Hgb 29.6 pg (27.0-32.0); Mean Corpuscular Volume 88.8 fL (81-99); Mean Platelet Vol. 9.4 fl (6.2-12.0); Platelet Count 214 K/mm3 (150-450); RBC Distribution Width CV 13.1 % (11.6-14.6); Red Blood Count 4.09 M/mm3 (4.2-5.4); White Blood Count 4.8 K/mm3 (4.4-11.0)
[2017-10-12 04:43] LABS: Scan Indicated on CBC? Y/N NO
[2017-10-12 04:44] LABS: International Normalized Ratio 1.1; Prothrombin Time (Protime)PT. 13.7 SECONDS (11.7-14.9)
[2017-10-12 04:45] LABS: Partial Thromboplast Time 30.5 Seconds (24.1-36.2)
[2017-10-12 04:58] LABS: Anion Gap 8 (5-15); BUN 15 mg/dL (7-18); BUN/Creat Ratio 17.9 RATIO (10-20); Calcium,Total 8.8 mg/dL (8.5-10.1); Chloride 109 mmol/L (98-107); Creatinine, Serum 0.84 mg/dL (0.55-1.02); EST Glomerular Filtration Rate 71 mL/min (>60); Est Glom Filt Rate - Afr Amer 86 mL/min (>60); Estimated Creatinine Clearance 53.81 ml/min; Glucose 99 mg/dL (74-106); Potassium 4.1 mmol/L (3.5-5.1); Sodium Level 143 mmol/L (136-145)
[2017-10-12] MEDS: Acetaminophen 325 MG Tablet 650 MG PO ×2 (05:00→15:23)
[2017-10-12] MEDS: Clopidogrel Bisulfate 75 MG Tablet PO (07:56)
[2017-10-12] MEDS: Aspirin E.C. 81 MG Tablet PO (07:56)
--- NOTE | 2017-10-12 10:00 | NURSING ---
Gave report to Isaiah laboratory tester RN in patient's room
[2017-10-12] MEDS: Pantoprazole Sodium 20 MG Tablet PO (10:04)
--- NOTE | 2017-10-12 10:18 | PCM.CONS.C ---
Problem List (1) Unstable angina Status: Acute (2) Sinus node dysfunction Status: Acute (3) Sinus bradycardia Status: Acute (4) Chest pain Status: Acute Reason for Consult Date of Consultation: 10/12/17 Reason for Consultation: Unstable angina, coronary artery disease, hypertension, hypercholesterolemia History of Present Illness: The patient is a 71 year old white female who is referred for evaluation of symptomatic sinus bradycardia superimposed upon a history of a Takotsubo Syndrome remotely, along with chest discomfort, shortness of breath, fatigue, lightheadedness, superimposed upon a history of underlying GERD and irritable bowel syndrome. She states that recently she has been noting progressive chest discomfort and shortness of breath. She has become more and more fatigued. She has had ongoing abdominal discomfort which she relates to a history of GERD and irritable bowel syndrome and a hiatal hernia surgery performed in the [facility]. She states several years ago she was diagnosed with her aforementioned Takotsubo Syndrome at [facility] in [place], [place]. She states she was treated medically for a period of time which included beta-odalys therapy with carvedilol/Coreg. Over time her medications were discontinued. She states she has not had cardiovascular follow-up for at least one year. She presented to the emergency department about 1 week ago for the aforementioned symptoms. She was found to have sinus bradycardia with ventricular rates between 40 and 50 bpm. She was not noted to be hypotensive. Her troponin I level was negative. Her ECG demonstrated sinus bradycardia with nonspecific ST and T-wave changes. It has been repeated with continued nonspecific ST and T-wave changes. She underwent evaluation with a transthoracic echocardiogram on that admission. Her left ventricle was thought to be normal with an LVEF of 55% with mild left atrial enlargement, trivial MR, trivial TR, trivial pericardial effusion, and no echocardiographic indications of cardiac tamponade physiology, with an estimated RV systolic pressure of 23 mmHg. She had a nuclear imaging study performed at [facility] on 08/01/2014. At that time she exercised for 8 minutes on a Justo protocol achieving 89% predicted maximal heart rate with a peak blood pressure of 210/105 mmHg and a peak MET capacity of approximately 9 METs. Her peak exercise ECG demonstrated no obvious ECG changes. Nuclear images appear compatible with physiologic apical thinning with no myocardial perfusion changes consider diagnostic for stress-induced myocardial ischemia or previous myocardial injury/infarction. Her gated LVEF was 67%. Of note she had chest discomfort pretest, during exercise, and recovery. She underwent a repeat stress test on 08/17/17 which was negative for inducible ischemia. Given her constellation of symptoms she underwent a left heart catheterization by Dr. Heath a proximally 1 week ago, which demonstrated nonobstructive coronary disease of her left system, and a possibly significant proximal concentric RCA stenosis. Apparently she underwent an IR for evaluation with Dr. Ozuna, followed by an IVUS evaluation as well. As best I can tell it was felt that the patient's stenosis was not significant enough to correct with angioplasty and medical management was invoked. Since discharge the patient has had recurrent exertional anginal symptoms with basic ambulation. She also has associated shortness of breath and dyspnea on exertion. The symptoms appear to be resolved with rest. Her initial EKG showed normal sinus rhythm with evidence of inferior and anterior ST segment depression consistent with possible inferior posterior ischemia. CTA of her chest on the admission ER yesterday was negative for pulmonary embolism or pulmonary pathology. Her troponins have been negative thus far. [] Past Medical History Allergies/Adverse Reactions: Allergies atorvastatin [From Lipitor] Allergy (Verified 10/11/17 17:20) Swelling Penicillins Allergy (Verified 10/11/17 17:20) Anaphylaxis rosuvastatin [From Crestor] Allergy (Verified 10/11/17 17:20) Swelling Home Medications: Ambulatory Orders Medication Instructions Recorded Citalopram Hydrobromide [Celexa] 40 mg PO QHS 12/13/16 Fexofenadine HCl [Claudia Allergy] 180 mg PO DAILY 08/15/17 Lubiprostone [Amitiza] 24 mcg PO BID 08/15/17 Omeprazole 20 mg PO BID 08/15/17 Polyethylene Glycol 3350 [Miralax] 17 gm PO BID 08/15/17 Naproxen 250 mg PO QHS 10/11/17 Past Medical History (Chronic Problems): Chronic Problems (Last Updated 10/05/17 @ 09:01 by Radha Warren) Depression (Chronic) GERD (gastroesophageal reflux disease) (Chronic) Irritable bowel syndrome (Chronic) Surgical History: appendectomy, cholecystectomy, hysterectomy, - - Surgery for hiatal hernia. 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 - *Family History Maternal Family History: Family History (Last Reviewed 09/16/17 @ 13:18 by Radha Warren) Grandmother Myocardial infarction Grandmother Myocardial infarction History Items: No pertinent history Paternal Family History: Family History (Last Reviewed 09/16/17 @ 13:18 by Radha Warren) Grandmother Myocardial infarction Grandmother Myocardial infarction History Items: No pertinent history Lives: Spouse/ Significant Other Smoking Status: Never smoker Review of Systems - Review of Systems General: Denies: Fever, Night Sweats, Fatigue Cardiovascular: Reports: Chest Discomfort, Chest Discomfort with Exertion, Shortness of Breath, Shortness of Breath with Exertion. Denies: Orthopnea, PND, Peripheral Edema, Palpitations, Lightheadedness, Dizziness, Near Syncope, Syncope Respiratory: Denies: Cough, Sputum Production, Hemoptysis Gastrointestinal: Denies: Hematemesis, Hematochezia, Melena Genitourinary: Denies: Dysuria, Hematuria Skin: Denies: Rash Subjectve: Patient laying in bed, no acute distress. No chest pain in a recumbent position. Objective: Vital Signs Temp Pulse Resp BP Pulse Ox 97.8 F 62 16 149/103 H 100 10/12/17 10:00 10/12/17 10:00 10/12/17 10:00 10/12/17 10:00 10/12/17 10:00 Oxygen Delivery Method Room Air Weight: 159 lb 2.78 oz Body Mass Index (BMI) 27.3 General: Awake, Alert, Oriented x 3 HEENT: PERRL, EOMI, Sclera Non Icteric Neck: Supple, Good ROM, No Lymph Node Enlargement Lungs: Clear to auscultation Cardiovascular: Regular Rhythm, Normal S1, Normal S2, No Murmurs, No Rubs, No Gallops Vascular: No Carotid Bruits, Normal Femoral Pulses, Normal Radial Pulses, Normal Dorsalis Pedal Pulse, Normal Posterior Tibial Pulses Abdomen: Bowel Sounds Present, Soft, Non Tender, No HSM, No Organomegaly Extremities: No Cyanosis, No Clubbing, No edema Neurological: No Focal Motor or Sensory Deficit 10/11/17 22:36: Troponin I < 0.015 10/12/17 00:55: Troponin I < 0.015 10/12/17 04:14: Sodium 143, Potassium 4.1, Chloride 109 H, Carbon Dioxide 26.0, Anion Gap 8, BUN 15, Creatinine 0.84, Est GFR (MDRD) Af Amer 86, Est GFR (MDRD) Non-Af 71, BUN/Creatinine Ratio 17.9, Glucose 99, Calcium 8.8, Troponin I < 0.015 10/12/17 04:14: WBC 4.8, RBC 4.09 L, Hgb 12.1, Hct 36.3 L, MCV 88.8, MCH 29.6, MCHC 33.3, RDW 13.1, RDW Differential 42.0, Plt Count 214, MPV 9.4 10/12/17 04:14: PT 13.7, INR 1.1, APTT 30.5 Rhythm: EKG: ECHO: Stress Test: Cardiac Cath: PCI: CT Surgery: Holter monitor: EPS: PPM: CXR: Chest CT Scan: Assessment/Plan 1. Unstable angina: The patient comes back with recurrent exertional anginal symptoms in the face of evaluation of her proximal RCA with and I have far followed by an IVUS evaluation about 1 week ago. Given the patient's symptoms, risk factors, hypertension, hypercholesterolemia, and coronary disease which was detected by catheterization I recommended the patient undergo elective angioplasty and stenting of her proximal RCA. In addition she may require adjustment of her medications given her bradycardia. I recommended starting hydrochlorothiazide 12.5 mg p.o. daily for her elevated diastolic blood pressure to assist with diuresis. The patient was loaded with Plavix upon admission last evening and received baby aspirin and Plavix this morning. In addition recommend that she undergo a sed rate given her trivial pericardial effusion which may be contributing to her symptom complex. 2. Hyperlipidemia: Patient is allergic to Lipitor and Crestor, and most likely allergic to most statins. Recommend obtaining a fasting lipid profile, and aggressively addressing her LDL cholesterol. Recommend starting gemfibrozil 600 mg p.o. twice daily and repeating lipid profile in 6 weeks time. 3. Thank you very much for the opportunity to participate in the cardiac care of your patient. Consultation time was between 730 and 8 AM. Code Visit Inpatient E&M: 18431 Init Hosp L2
--- NOTE | 2017-10-12 10:23 | CON.PCM_ITS ---
Problem List (1) Unstable angina Status: Acute (2) Sinus node dysfunction Status: Acute (3) Sinus bradycardia Status: Acute (4) Chest pain Status: Acute Reason for Consult Date of Consultation: 10/12/17 Reason for Consultation: Unstable angina, coronary artery disease, hypertension , hypercholesterolemia History of Present Illness: The patient is a 71 year old white female who is referred for evaluation of symptomatic sinus bradycardia superimposed upon a history of a Takotsubo Syndrome remotely, along with chest discomfort, shortness of breath, fatigue, lightheadedness, superimposed upon a history of underlying GERD and irritable bowel syndrome. She states that recently she has been noting progressive chest discomfort and shortness of breath. She has become more and more fatigued. She has had ongoing abdominal discomfort which she relates to a history of GERD and irritable bowel syndrome and a hiatal hernia surgery performed in the [facility]. She states several years ago she was diagnosed with her aforementioned Takotsubo Syndrome at [facility] in [place], [place]. She states she was treated medically for a period of time which included beta- odalys therapy with carvedilol/Coreg. Over time her medications were discontinued. She states she has not had cardiovascular follow-up for at least one year. She presented to the emergency department about 1 week ago for the aforementioned symptoms. She was found to have sinus bradycardia with ventricular rates between 40 and 50 bpm. She was not noted to be hypotensive. Her troponin I level was negative. Her ECG demonstrated sinus bradycardia with nonspecific ST and T-wave changes. It has been repeated with continued nonspecific ST and T-wave changes. She underwent evaluation with a transthoracic echocardiogram on that admission. Her left ventricle was thought to be normal with an LVEF of 55% with mild left atrial enlargement, trivial MR, trivial TR, trivial pericardial effusion, and no echocardiographic indications of cardiac tamponade physiology, with an estimated RV systolic pressure of 23 mmHg. She had a nuclear imaging study performed at [facility] on 2014. At that time she exercised for 8 minutes on a Justo protocol achieving 89 % predicted maximal heart rate with a peak blood pressure of 210/105 mmHg and a peak MET capacity of approximately 9 METs. Her peak exercise ECG demonstrated no obvious ECG changes. Nuclear images appear compatible with physiologic apical thinning with no myocardial perfusion changes consider diagnostic for stress-induced myocardial ischemia or previous myocardial injury/infarction. Her gated LVEF was 67%. Of note she had chest discomfort pretest, during exercise, and recovery. She underwent a repeat stress test on 08/17/17 which was negative for inducible ischemia. Given her constellation of symptoms she underwent a left heart catheterization by Dr. Heath a proximally 1 week ago, which demonstrated nonobstructive coronary disease of her left system, and a possibly significant proximal concentric RCA stenosis. Apparently she underwent an IR for evaluation with Dr. Ozuna, followed by an IVUS evaluation as well. As best I can tell it was felt that the patient's stenosis was not significant enough to correct with angioplasty and medical management was invoked. Since discharge the patient has had recurrent exertional anginal symptoms with basic ambulation. She also has associated shortness of breath and dyspnea on exertion. The symptoms appear to be resolved with rest. Her initial EKG showed normal sinus rhythm with evidence of inferior and anterior ST segment depression consistent with possible inferior posterior ischemia. CTA of her chest on the admission ER yesterday was negative for pulmonary embolism or pulmonary pathology. Her troponins have been negative thus far. [] Past Medical History Allergies/Adverse Reactions: Allergies atorvastatin [From Lipitor] Allergy (Verified 10/11/17 17:20) Swelling Penicillins Allergy (Verified 10/11/17 17:20) Anaphylaxis rosuvastatin [From Crestor] Allergy (Verified 10/11/17 17:20) Swelling Home Medications: Ambulatory Orders Medication Instructions Recorded Citalopram Hydrobromide [Celexa] 40 mg PO QHS 12/13/16 Fexofenadine HCl [Claudia Allergy] 180 mg PO DAILY 08/15/17 Lubiprostone [Amitiza] 24 mcg PO BID 08/15/17 Omeprazole 20 mg PO BID 08/15/17 Polyethylene Glycol 3350 [Miralax] 17 gm PO BID 08/15/17 Naproxen 250 mg PO QHS 10/11/17 Past Medical History (Chronic Problems): Chronic Problems (Last Updated 10/05/17 @ 09:01 by Radha Warren) Depression (Chronic) GERD (gastroesophageal reflux disease) (Chronic) Irritable bowel syndrome (Chronic) Surgical History: appendectomy, cholecystectomy, hysterectomy, - - Surgery for hiatal hernia. 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 - *Family History Maternal Family History: Family History (Last Reviewed 09/16/17 @ 13:18 by Radha Warren) Grandmother Myocardial infarction Grandmother Myocardial infarction History Items: No pertinent history Paternal Family History: Family History (Last Reviewed 09/16/17 @ 13:18 by Radha Warren) Grandmother Myocardial infarction Grandmother Myocardial infarction History Items: No pertinent history Lives: Spouse/ Significant Other Smoking Status: Never smoker Review of Systems - Review of Systems General: Denies: Fever, Night Sweats, Fatigue Cardiovascular: Reports: Chest Discomfort, Chest Discomfort with Exertion, Shortness of Breath, Shortness of Breath with Exertion. Denies: Orthopnea, PND , Peripheral Edema, Palpitations, Lightheadedness, Dizziness, Near Syncope, Syncope Respiratory: Denies: Cough, Sputum Production, Hemoptysis Gastrointestinal: Denies: Hematemesis, Hematochezia, Melena Genitourinary: Denies: Dysuria, Hematuria Skin: Denies: Rash Subjectve: Patient laying in bed, no acute distress. No chest pain in a recumbent position. Objective: Vital Signs Temp Pulse Resp BP Pulse Ox 97.8 F 62 16 149/103 H 100 10/12/17 10:00 10/12/17 10:00 10/12/17 10:00 10/12/17 10:00 10/12/17 10:00 Oxygen Delivery Method Room Air Weight: 159 lb 2.78 oz Body Mass Index (BMI) 27.3 General: Awake, Alert, Oriented x 3 HEENT: PERRL, EOMI, Sclera Non Icteric Neck: Supple, Good ROM, No Lymph Node Enlargement Lungs: Clear to auscultation Cardiovascular: Regular Rhythm, Normal S1, Normal S2, No Murmurs, No Rubs, No Gallops Vascular: No Carotid Bruits, Normal Femoral Pulses, Normal Radial Pulses, Normal Dorsalis Pedal Pulse, Normal Posterior Tibial Pulses Abdomen: Bowel Sounds Present, Soft, Non Tender, No HSM, No Organomegaly Extremities: No Cyanosis, No Clubbing, No edema Neurological: No Focal Motor or Sensory Deficit 10/11/17 22:36: Troponin I < 0.015 10/12/17 00:55: Troponin I < 0.015 10/12/17 04:14: Sodium 143, Potassium 4.1, Chloride 109 H, Carbon Dioxide 26.0, Anion Gap 8, BUN 15, Creatinine 0.84, Est GFR (MDRD) Af Amer 86, Est GFR (MDRD) Non-Af 71, BUN/Creatinine Ratio 17.9, Glucose 99, Calcium 8.8, Troponin I < 0.015 10/12/17 04:14: WBC 4.8, RBC 4.09 L, Hgb 12.1, Hct 36.3 L, MCV 88.8, MCH 29.6, MCHC 33.3, RDW 13.1, RDW Differential 42.0, Plt Count 214, MPV 9.4 10/12/17 04:14: PT 13.7, INR 1.1, APTT 30.5 Rhythm: EKG: ECHO: Stress Test: Cardiac Cath: PCI: CT Surgery: Holter monitor: EPS: PPM: CXR: Chest CT Scan: Assessment/Plan 1. Unstable angina: The patient comes back with recurrent exertional anginal symptoms in the face of evaluation of her proximal RCA with and I have far followed by an IVUS evaluation about 1 week ago. Given the patient's symptoms, risk factors, hypertension, hypercholesterolemia, and coronary disease which was detected by catheterization I recommended the patient undergo elective angioplasty and stenting of her proximal RCA. In addition she may require adjustment of her medications given her bradycardia. I recommended starting hydrochlorothiazide 12.5 mg p.o. daily for her elevated diastolic blood pressure to assist with diuresis. The patient was loaded with Plavix upon admission last evening and received baby aspirin and Plavix this morning. In addition recommend that she undergo a sed rate given her trivial pericardial effusion which may be contributing to her symptom complex. 2. Hyperlipidemia: Patient is allergic to Lipitor and Crestor, and most likely allergic to most statins. Recommend obtaining a fasting lipid profile, and aggressively addressing her LDL cholesterol. Recommend starting gemfibrozil 600 mg p.o. twice daily and repeating lipid profile in 6 weeks time. 3. Thank you very much for the opportunity to participate in the cardiac care of your patient. Consultation time was between 730 and 8 AM. Code Visit Inpatient E&M: 71453 Init Hosp L2
[2017-10-12 11:05] LABS: Erythrocyte Sedimentation Rate 3 mm/hr (0-30)
[2017-10-12 11:07] LABS: Cholesterol 292 mg/dL (200); High Density Lipoprotein 53 mg/dL; Triglycerides 215 mg/dL; Very Low Density Lipoprotein 43 mg/dL (5-40)
--- NOTE | 2017-10-12 11:13 | NURSING ---
Called report to Christina LAZARO in ICU
--- NOTE | 2017-10-12 11:43 | CL.I_ITS ---
Patient Name: DAYSI SHABAZZ Study Date: 10/12/2017 Performing: Edis Ewing MD Ht: 64.17 inches 163 cm : 1945 Wt: 158.73 lbs 72 kg Age: 71 Gender: female BSA: 1.78 PROCEDURE(S) PERFORMED XA55-TZO/COR/LV HC23-HCW W OR WO PTCA, SINGLE CORONARY ARTERY CLINICAL PROFILE AND CO-MORBIDITIES Indications: ACS > 24 hrs, Worsening Angina, Stable Known CAD Heart Failure: None Stress/Imaging Stress Test w/SPECT MPI: Yes Result: Negative Stress Test with SPECT MPI: Negative Angina Classification Anginal Classification w/in 2 Weeks: CCS III CAD Presentations: Unstable angina. Comorbidities/Risk Factors: Hypertension Dyslipidemia CONCLUSIONS Depressed Left Ventricular systolic function - Mild Single vessel CAD of the proximal RCA Non obstructive coronary arteries Elevated Left Ventricular End Diastolic Pressure Successful PTCA/ARELI of the of proximal RCA with a 4.0 x 38 Promus Synergy; post dilated throughout wi th a 4.0 x 12 NC Balloon; 75%-->0%, no dissection. Pt had identical anginal symptoms with stent deployment as she has been having at home. RECOMMENDATIONS Referred for immediate PCI Highly recommend quitting all tobacco products Follow up with primary ear machine operator Risk factor modification ASA Indefinitley Plavix for at least 12 months Routine post interventional care Refer for Outpatient Cardiac Rehab Manual sheath removal per protocol Follow up with Dr. Heath Successful Mynx closure Medical management of ostial DIAG and proximal OM DESCRIPTION OF PROCEDURE The patient arrived to the procedure lab. The risks and benefits of the procedure as well as a full d escription of our services here and lack of surgical backup were fully explained to the patient and/o r their significant other prior to the catheterization. The Timeout was completed, verifying the cindy ect patient and procedure. The patient's procedural site was prepped and draped in the usual fashion. Local anesthetic was given subcutaneously to right groin region with Lidocaine 2%. Using a modified Seldinger technique, arterial access was obtained via the right femoral artery, a 4Fr sheath was inse rted. Left Coronary Artery selective angiography was performed in multiple views using a 4 Fr. JL4 c atheter. Right Coronary Artery selective angiography was then performed in multiple views using a 4 F r. 3DRC catheter. Left Ventriculography was performed in MORALES projection using a 4 Fr. Pigtail cathete r. LV to AO pullback pressures were then recordedThe images were reviewed and options discussed. A de cision was then made to proceed with an Intervention, IVUS or other adjunct procedure. Arterial sheath was exchanged for a 6 Fr 45 cm Sheath. HS I Guide Guide catheter was inserted and eng aged into the RCA. [employer] [place] Wire Guide wire was advanced to the RCA. 2.0 x 12 Emerge Balloon cat heter was inserted. Balloon catheter was advanced across lesion in the right coronary, proximal. PTCA balloon inflated at 8 atms for 10 secs. 4.0 x 38 Synergy Drug Eluting stent was inserted. Drug Eluti ng stent was advanced across the lesion in the right coronary, proximal. Angiogram performed pre sten t deployment. Angiogram performed post stent deployment. Angiogram performed post stent deployment. 4 .0 x 12 NC Emerge Balloon catheter was inserted. Balloon catheter was advanced across lesion in the r ight coronary, proximal. Angiogram performed post balloon dilatation. Angiogram performed post balloo n dilatation. Contrast was injected through the sheath and the Right Iliac and Femoral artery were as sessed for possible closure device. The arterial sheath was pulled and a Mynx closure device was dep loyed for hemostasis CORONARY ANGIOGRAPHY DOMINANCE: Right Dominant LEFT HEART ASSESSMENT Left Ventricular Ejection Fraction: by LV Gram 55 % Depressed Left Ventricular systolic function Global Hypokinesis - Mild LEFT MAIN: Angiographically normal LEFT ANTERIOR DECENDING ARTERY: Mild luminal irregularities less than 30% DIAGONAL 1: Ostial - 50 % Stenosis CIRCUMFLEX ARTERY: Mild luminal irregularities less than 30% OM 1: Proximal - 50 % Stenosis RIGHT CORONARY ARTERY: PROX RCA: 75 % Stenosis INTERVENTION INFORMATION LESION SITE: RCA (Proximal)/ (Mid) Lesion Complexity: High/C, lesion at bifurcation: No, thrombus present: No, culprit lesion: Yes Pre Stenosis: 75 % Pre intervention DAYNA flow: 3 PROCEDURE: Drug Eluting Stent with pre and post dilatation Post Stenosis: 0 % Post intervention DAYNA flow: 3 Lesion Devices: Medtronic 6 Fr HS1 100cm Guide Catheter Rosenberg .014 BMW [place] Straight 190cm Ck Sci EMERGE MR 2.00x12 BALLOON Ck Sci Synergy MR ARELI 4.00x38 Ck Sci NC EMERGE MR 4.00x12 BALLOON COMPLICATIONS No Complications PROCEDURE MEDICATIONS Versed 1 mg IV Versed 1 mg IV Fentanyl 25 mcg IV Oxygen: 2 L/min via nasal cannula Heparin 6000 unit(s) IV 10/12/2017 11:01:01 Nitro 200 mcg IC 10/12/2017 11:03:50 Nitro 200 mcg IC 10/12/2017 11:03:50 Nitro 200 mcg IC 10/12/2017 11:11:30 Nitro glycerin 25mg / 250ml D5W @ 5 mcg/min IV started 10/12/2017 11:19:15 IV Bolus: .9 NaCl 1000 ml total 10/12/2017 11:01:19 SUMMARY OF HEMODYNAMIC DATA Time AIR REST ECG 10:21:14 AO 166/84 (120) SA 10:40:51 LV 180/-12, 18 10:50:48 LV 179/-13, 18 10:50:54 LVp 180/0, 19 10:50:58 AOp 185/76 (114) 10:51:04 Signed By Edis Ewing MD On 10/12/2017 11:42:24 Edis Ewing MD
[2017-10-12] MEDS: 0.9% Normal Saline 1,000 ML 150 ML IV (12:00)
--- NOTE | 2017-10-12 13:29 | PCM.PN.HOSP ---
Patient Problems: Active and Suspected Problems (Last Updated 10/05/17 @ 09:01 by Radha Warren) Unstable angina (Acute) Subjective: Patient seen and examined. She is a 71-year-old with a history of hypertension, hyperlipidemia GERD, Takotsubo cardiomyopathy, depression and anxiety was admitted with a complaint of progressively worsening chest pain that started about a week ago. It felt pressure-like and she had felt like a squeezing around her heart. She had had a monitoring and evaluation advisor on for about 30 days and based on abnormal rhythm found, she had a heart cath done about a week ago which found 50-75% blockage in the RCA. He was told to follow-up with an EP doctor for possible pacemaker and upper cutaneous intervention was done at that time. She presented 1 day ago the symptoms and cardiology was consulted. She was started on Plavix loading dose and was managed for unstable angina. It was negative. Patient was seen prior to procedure, she had no complaints. She denied any fever or chills, any cough or chest pain, shortness of breath, abdominal pain, any diarrhea vomiting. Family was at bedside. Review of systems otherwise negative. Vitals/I&O's: Vital Signs Temp Pulse Resp BP Pulse Ox 98.2 F 63 14 110/66 95 10/12/17 12:00 10/12/17 13:00 10/12/17 13:00 10/12/17 13:00 10/12/17 13:00 Oxygen Delivery Method Room Air Weight: 159 lb 2.78 oz Intake and Output for Last 24 Hours 10/10/17 10/11/17 10/12/17 23:59 23:59 23:59 Output Total 500 / 500 Balance -500 / -500 General: Alert, Oriented x3, Cooperative, No apparent distress HEENT: Atraumatic, PERRLA, EOMI, Normocephalic Oral: Moist Mucosa Neck: Supple, No JVD, Negative Carotid Bruits Lungs: Clear to auscultation, Normal air movement, No rhonchi, No wheeze, No rales Cardiovascular: Regular rate, Regular Rhythm, Normal S1, Normal S2, No murmurs Abdomen: Bowel Sounds Present, Soft, Non Tender Extremities: No clubbing, No cyanosis, No edema, Capillary Refill Less than 3 Seconds Skin: No rashes, No breakdown Musculoskeletal: No Tenderness to Palpation of Joints or Extremities Lymphatic: No Cervical, Supraclavicular, or Inguinal Adenopathy Neurological: Cranial nerves II-XII grossly intact, Motor Exam 5/5 strength throughout Psych/Mental Status: Normal Affect, Appropriate, Alert and oriented to time, place, person, mood and affect Current Medications Acetaminophen (Tylenol) 650 mg PO Q6 [facility] Last Admin: 10/12/17 05:00 Dose: 650 mg Acetaminophen (Tylenol) 650 mg PO Q6H PRN PRN PRN Reason: Mild Pain (0-2/10) Aspirin (Ecotrin) 81 mg PO DAILY@0800 [facility] Last Admin: 10/12/17 07:56 Dose: 81 mg Atropine Sulfate () 0.5 mg IV UD PRN PRN Reason: HR <50 bpm Bisacodyl (Dulcolax) 5 mg PO DAILY PRN PRN PRN Reason: Constipation Citalopram Hydrobromide (Celexa) 40 mg PO QHS [facility] Last Admin: 10/11/17 23:38 Dose: 40 mg Gemfibrozil (Lopid) 600 mg PO BIDAC [facility] Hydrochlorothiazide (Hydrochlorothiazide) 12.5 mg PO DAILY [facility] Sodium Chloride () 1,000 mls @ 150 mls/hr IV .Q6H40M [facility] Stop: 10/12/17 18:38 Nitroglycerin/Dextrose 25 mg/ (N/A) 250 mls @ 3 mls/hr IV .[id number] [facility] PRN Reason: 5 MCG/MIN Lactobacillus Acidophilus (Acidophilus) 1 tablet PO DAILY [facility] Loratadine (Claritin) 10 mg PO DAILY [facility] Lorazepam (Ativan) 1 mg PO Q6H PRN PRN PRN Reason: BACK SPASMS/ANXIETY Losartan Potassium (Cozaar) 25 mg PO DAILY [facility] Lubiprostone (Amitiza) 24 mcg PO BID [facility] Magnesium Hydroxide (Milk Of Magnesia) 30 ml PO DAILY PRN PRN Reason: Constipation Metoclopramide HCl (Reglan) 5 mg IV Q6 PRN PRN Reason: NAUSEA/VOMITING Morphine Sulfate () 2 mg IV Q4H PRN PRN PRN Reason: Mild back pain (0-2/10) Nutritional Formula (Lactose Free) (Ensure Enlive) 120 ml PO 4X/DAY [facility] Pantoprazole Sodium (Protonix) 20 mg PO DAILY [facility] Last Admin: 10/12/17 10:04 Dose: 20 mg Polyethylene Glycol (Miralax) 17 gm PO BID [facility] Last Admin: 10/11/17 23:05 Dose: Not Given Sodium Chloride () 5 - 30 ml IV UD PRN PRN Reason: SALINE FLUSH Sodium Chloride () 500 ml IV BOLUS PRN PRN Reason: VASO-VAGAL PROTOCOL Medical Necessity - Tobacco Use Smoking Status: Never smoker Assessment/Plan All Active Problems (Last Updated 10/05/17 @ 09:01 by Radha Warren) Unstable angina (Acute) Sinus node dysfunction (Acute) Sinus bradycardia (Acute) Chest pain (Acute) Shortness of breath (Acute) Fatigue (Acute) Lightheaded (Acute) Takotsubo cardiomyopathy (Resolved) 1. Unstable angina s/p ARELI placement admitted with chest pain. had a ARELI to her RCA today She had a cardiac cath today with successful stenting of the proximal RCA with a drug-eluting stent. She is continued on aspirin and Plavix with Plavix being for about 12 months. To have outpatient cardiac rehab. on aspirin, plavix, statin and beta odalys cardiology on board 2. Depression: on celexa 3. IBS-constipation on lubiprostone 4. GERD: on PPI 5. DVT prophylaxis: heparin This note was generated with [employer] dictation software. It may contain incorrect words, spelling, and punctuation that were not noted in checking the note before signing. Code Visit Inpatient E&M: [id number] [facility] Hosp L3
--- NOTE | 2017-10-12 13:37 | PN_ITS ---
Patient Problems: Active and Suspected Problems (Last Updated 10/05/17 @ 09:01 by Radha Warren ) Unstable angina (Acute) Subjective: Patient seen and examined. She is a 71-year-old with a history of hypertension , hyperlipidemia GERD, Takotsubo cardiomyopathy, depression and anxiety was admitted with a complaint of progressively worsening chest pain that started about a week ago. It felt pressure-like and she had felt like a squeezing around her heart. She had had a pvc monitor on for about 30 days and based on abnormal rhythm found, she had a heart cath done about a week ago which found 50-75% blockage in the RCA. He was told to follow-up with an EP doctor for possible pacemaker and upper cutaneous intervention was done at that time. She presented 1 day ago the symptoms and cardiology was consulted. She was started on Plavix loading dose and was managed for unstable angina. It was negative. Patient was seen prior to procedure, she had no complaints. She denied any fever or chills, any cough or chest pain, shortness of breath, abdominal pain, any diarrhea vomiting. Family was at bedside. Review of systems otherwise negative. Vitals/I&O's: Vital Signs Temp Pulse Resp BP Pulse Ox 98.2 F 63 14 110/66 95 10/12/17 12:00 10/12/17 13:00 10/12/17 13:00 10/12/17 13:00 10/12/17 13:00 Oxygen Delivery Method Room Air Weight: 159 lb 2.78 oz Intake and Output for Last 24 Hours 10/10/17 10/11/17 10/12/17 23:59 23:59 23:59 Output Total 500 / 500 Balance -500 / -500 General: Alert, Oriented x3, Cooperative, No apparent distress HEENT: Atraumatic, PERRLA, EOMI, Normocephalic Oral: Moist Mucosa Neck: Supple, No JVD, Negative Carotid Bruits Lungs: Clear to auscultation, Normal air movement, No rhonchi, No wheeze, No rales Cardiovascular: Regular rate, Regular Rhythm, Normal S1, Normal S2, No murmurs Abdomen: Bowel Sounds Present, Soft, Non Tender Extremities: No clubbing, No cyanosis, No edema, Capillary Refill Less than 3 Seconds Skin: No rashes, No breakdown Musculoskeletal: No Tenderness to Palpation of Joints or Extremities Lymphatic: No Cervical, Supraclavicular, or Inguinal Adenopathy Neurological: Cranial nerves II-XII grossly intact, Motor Exam 5/5 strength throughout Psych/Mental Status: Normal Affect, Appropriate, Alert and oriented to time, place, person, mood and affect Current Medications Acetaminophen (Tylenol) 650 mg PO Q6 [facility] Last Admin: 10/12/17 05:00 Dose: 650 mg Acetaminophen (Tylenol) 650 mg PO Q6H PRN PRN PRN Reason: Mild Pain (0-2/10) Aspirin (Ecotrin) 81 mg PO DAILY@0800 [facility] Last Admin: 10/12/17 07:56 Dose: 81 mg Atropine Sulfate () 0.5 mg IV UD PRN PRN Reason: HR <50 bpm Bisacodyl (Dulcolax) 5 mg PO DAILY PRN PRN PRN Reason: Constipation Citalopram Hydrobromide (Celexa) 40 mg PO QHS [facility] Last Admin: 10/11/17 23:38 Dose: 40 mg Gemfibrozil (Lopid) 600 mg PO BIDAC [facility] Hydrochlorothiazide (Hydrochlorothiazide) 12.5 mg PO DAILY [facility] Sodium Chloride () 1,000 mls @ 150 mls/hr IV .Q6H40M [facility] Stop: 10/12/17 18:38 Nitroglycerin/Dextrose 25 mg/ (N/A) 250 mls @ 3 mls/hr IV .[id number] [facility] PRN Reason: 5 MCG/MIN Lactobacillus Acidophilus (Acidophilus) 1 tablet PO DAILY [facility] Loratadine (Claritin) 10 mg PO DAILY [facility] Lorazepam (Ativan) 1 mg PO Q6H PRN PRN PRN Reason: BACK SPASMS/ANXIETY Losartan Potassium (Cozaar) 25 mg PO DAILY [facility] Lubiprostone (Amitiza) 24 mcg PO BID [facility] Magnesium Hydroxide (Milk Of Magnesia) 30 ml PO DAILY PRN PRN Reason: Constipation Metoclopramide HCl (Reglan) 5 mg IV Q6 PRN PRN Reason: NAUSEA/VOMITING Morphine Sulfate () 2 mg IV Q4H PRN PRN PRN Reason: Mild back pain (0-2/10) Nutritional Formula (Lactose Free) (Ensure Enlive) 120 ml PO 4X/DAY [facility] Pantoprazole Sodium (Protonix) 20 mg PO DAILY [facility] Last Admin: 10/12/17 10:04 Dose: 20 mg Polyethylene Glycol (Miralax) 17 gm PO BID [facility] Last Admin: 10/11/17 23:05 Dose: Not Given Sodium Chloride () 5 - 30 ml IV UD PRN PRN Reason: SALINE FLUSH Sodium Chloride () 500 ml IV BOLUS PRN PRN Reason: VASO-VAGAL PROTOCOL Medical Necessity - Tobacco Use Smoking Status: Never smoker Assessment/Plan All Active Problems (Last Updated 10/05/17 @ 09:01 by Radha Warren) Unstable angina (Acute) Sinus node dysfunction (Acute) Sinus bradycardia (Acute) Chest pain (Acute) Shortness of breath (Acute) Fatigue (Acute) Lightheaded (Acute) Takotsubo cardiomyopathy (Resolved) 1. Unstable angina s/p ARELI placement * admitted with chest pain. * had a ARELI to her RCA today * She had a cardiac cath today with successful stenting of the proximal RCA with a drug-eluting stent. She is continued on aspirin and Plavix with Plavix being for about 12 months. To have outpatient cardiac rehab. * on aspirin, plavix, statin and beta odalys * cardiology on board * 2. Depression: on celexa 3. IBS-constipation * on lubiprostone * 4. GERD: on PPI 5. DVT prophylaxis: heparin This note was generated with [employer] dictation software. It may contain incorrect words, spelling, and punctuation that were not noted in checking the note before signing. Code Visit Inpatient E&M: 62461 Subs Hosp L3
--- NOTE | 2017-10-12 14:21 | CRPHASE1 ---
Patient Data/Charges Former Patient:: Phase I Tenant Coordinator:: Edis Ewing Admit Date:: 10/12/17 Phase I Charge:: Level I - Education Risk Factors/Lifestyle Smoking Status: Never smoker Hx Hypertension: Yes Hx Diabetes Mellitus Type 2: No Height: 1.63 m Weight:: 72.121 kg BMI: 27.3 Post-Menopausal: Yes Caffeine: No Substance Abuse: No Family History: Family History (Last Reviewed 09/16/17 @ 13:18 by Radha Warren) Grandmother Myocardial infarction Grandmother Myocardial infarction Laboratory Values: Cardiac Rehab Phase I Labs Triglycerides 215 mg/dL (-199) H 10/12/17 04:14 Cholesterol 292 mg/dL (200) H 10/12/17 04:14 LDL Cholesterol 196 mg/dL (0-130) H 10/12/17 04:14 HDL Cholesterol 53 mg/dL (40-) 10/12/17 04:14 Phase I Education Given On:: [place], Nutrition, Antiplatelet medication Issues Affecting Care:: None Knowledge of Condition:: Yes Hospital Course Pain Description: Tightness, Pressure Cardiac Cath Date:: 10/12/17 Medical/Surgical History [place]:: No - TAKOTSUBO CARDIOMYOPATHY 15 + YEARS Hypertension:: Yes Dyslipidemia:: Yes - NO LAB RESULTS GERD:: Yes - BEEN ON MEDS AND SURGERY 15 YEARS AGO Depression:: Yes Anxiety:: Yes Discharge/Home/Social Eval Discharge Disposition: Home Marital Status: Single
--- NOTE | 2017-10-12 14:25 | CRPHASE1_ITS ---
Patient Data/Charges Former Patient:: Phase I Shot Polisher:: Edis Ewing Admit Date:: 10/12/17 Phase I Charge:: Level I - Education Risk Factors/Lifestyle Smoking Status: Never smoker Hx Hypertension: Yes Hx Diabetes Mellitus Type 2: No Height: 1.63 m Weight:: 72.121 kg BMI: 27.3 Post-Menopausal: Yes Caffeine: No Substance Abuse: No Family History: Family History (Last Reviewed 09/16/17 @ 13:18 by Radha Warren) Grandmother Myocardial infarction Grandmother Myocardial infarction Laboratory Values: Cardiac Rehab Phase I Labs Triglycerides 215 mg/dL (-199) H 10/12/17 04:14 Cholesterol 292 mg/dL (200) H 10/12/17 04:14 LDL Cholesterol 196 mg/dL (0-130) H 10/12/17 04:14 HDL Cholesterol 53 mg/dL (40-) 10/12/17 04:14 Phase I Education Given On:: [place], Nutrition, Antiplatelet medication Issues Affecting Care:: None Knowledge of Condition:: Yes Hospital Course Pain Description: Tightness, Pressure Cardiac Cath Date:: 10/12/17 Medical/Surgical History [place]:: No - TAKOTSUBO CARDIOMYOPATHY 15 + YEARS Hypertension:: Yes Dyslipidemia:: Yes - NO LAB RESULTS GERD:: Yes - BEEN ON MEDS AND SURGERY 15 YEARS AGO Depression:: Yes Anxiety:: Yes Discharge/Home/Social Eval Discharge Disposition: Home Marital Status: Single
--- NOTE | 2017-10-12 14:28 | CRPH1.INST_ITS ---
General Education CAD and cardiac anatomy and function:: Patient communicates acknowledgment, Family communicates acknowledgment Explanation of diagnoses and procedures:: Patient communicates acknowledgment, Family communicates acknowledgment Sign/Symptoms of WI:: Patient communicates acknowledgment, Family communicates acknowledgment Antiplatelet therapy: Patient communicates acknowledgment, Family communicates acknowledgment Proper use of NTG-SL: Patient communicates acknowledgment, Family communicates acknowledgment Emergency procedures and activation of EMS: Patient communicates acknowledgment , Family communicates acknowledgment Compliance of all prescribed medications: Patient communicates acknowledgment, Family communicates acknowledgment Smoking Patient Nicotine/Smoking Risk Factors Are:: Never smoked Dyslipidemia Recommendations Include:: Lipid profile not available Dyslipidemia Response Code:: Patient communicates acknowledgment, Family communicates acknowledgment Overweight/Obesity Patient Overweight/Obesity Risk Factors Are:: Overweight = 26-29 Hypertension Recommendations Include:: Maintain BP <130/85 Hypertension:: Patient communicates acknowledgment, Family communicates acknowledgment - ON MEDS Heart Disease Patient Heart Disease Risk Factors Are:: Previous cardiac event Recommendations Include:: Educated family members of their risk Heart Disease Response Code:: Patient communicates acknowledgment, Family communicates acknowledgment Diabetes Patient Diabetes Risk Factors Are:: No documented hx of diabetes Metabolic Syndrome Metabolic Syndrome Response Code:: Patient communicates acknowledgment, Family communicates acknowledgment Sedentary Recommendations Include:: Aerobic exercise 5-7 times/week for 20-30 minutes continuously Stress Patient Stress Risk Factors Are:: Patient denies stress as a risk factor
[2017-10-12 15:26] LABS: ACT Activated Clotting Time 208 sec (74-137)
[2017-10-12] MEDS: Loratadine 10 MG Tablet PO (15:26)
[2017-10-12] MEDS: Gemfibrozil 600 MG Tablet PO (18:47)
[2017-10-12] MEDS: Polyethylene Glycol 3350 17 GM PACKET PO (21:29)
[2017-10-12] MEDS: Citalopram 40 MG TABLET PO (21:49)
[2017-10-12] MEDS: Lubiprostone 24 MCG Capsule PO (21:49)
--- NOTE | 2017-10-12 22:09 | NURSING ---
Patient's groin site non-painful, no oozing. Patient reports no chest pain and states she feels better than she has all year. Leigh Arreguin RN.
[2017-10-13] VITALS (14 sets, daily range): BP systolic 103–154; BP diastolic 55–84; PULSE 53–104; RESP 13–18; TEMP 36.6–37.1; O2SAT 95–98
[2017-10-13] MEDS: 0.9% NaCl Peripheral Flush Adult/Peds IV (04:55)
[2017-10-13] MEDS: Acetaminophen 325 MG Tablet 650 MG PO (05:00)
[2017-10-13 05:37] LABS: Hematocrit 32.5 % (37-47); Mean Corp Hgb Conc 33.8 g/gl (32-36); Mean Corpuscular Hgb 30.3 pg (27.0-32.0); Mean Corpuscular Volume 89.5 fL (81-99); Mean Platelet Vol. 9.5 fl (6.2-12.0); Platelet Count 203 K/mm3 (150-450); RBC Distribution Width CV 13.1 % (11.6-14.6); RBC Distribution Width SD 41.9 fl (35.1-43.9); Red Blood Count 3.63 M/mm3 (4.2-5.4); White Blood Count 4.7 K/mm3 (4.4-11.0)
[2017-10-13 05:52] LABS: Scan Indicated on CBC? Y/N NO
[2017-10-13 05:55] LABS: Anion Gap 11 (5-15); BUN 10 mg/dL (7-18); BUN/Creat Ratio 12.5 RATIO (10-20); Calcium,Total 8.6 mg/dL (8.5-10.1); Chloride 112 mmol/L (98-107); EST Glomerular Filtration Rate 75 mL/min (>60); Est Glom Filt Rate - Afr Amer 91 mL/min (>60); Glucose 98 mg/dL (74-106); Potassium 4.3 mmol/L (3.5-5.1); Sodium Level 145 mmol/L (136-145)
--- NOTE | 2017-10-13 07:38 | PCM.PN.BLA ---
Progress Note Patient is scheduled for a post hospital follow-up with the [facility] on 10/27/2017 with Radha Barrett, Physician Store Protection Specialist, at 10:30 AM. If this appointment needs rescheduled please call the [facility] office at [phone].
--- NOTE | 2017-10-13 07:41 | PN_ITS ---
Progress Note Patient is scheduled for a post hospital follow-up with the [facility] on 10/27/2017 with Radha Barrett, Physician Child Welfare Assistant, at 10:30 AM. If this appointment needs rescheduled please call the [facility] office at .
[2017-10-13] MEDS: HYDROCHLOROTHIAZIDE 12.5 MG CAPSULE PO (08:11)
[2017-10-13] MEDS: Gemfibrozil 600 MG Tablet PO (08:11)
[2017-10-13] MEDS: Losartan Potassium 25 MG Tablet PO (08:11)
[2017-10-13] MEDS: Lubiprostone 24 MCG Capsule PO (08:12)
[2017-10-13] MEDS: Loratadine 10 MG Tablet PO (08:15)
[2017-10-13] MEDS: Aspirin E.C. 81 MG Tablet PO (08:15)
[2017-10-13] MEDS: Pantoprazole Sodium 20 MG Tablet PO (08:17)
--- NOTE | 2017-10-13 09:14 | DCINST_ITS ---
- Discharge Diagnoses Current Active Problems: Current Active and Chronic Problems (Last Updated 10/05/17 @ 09:01 by Radha Warren) Unstable angina (Acute) s/p PTCA with stent to RCA You will use the following diet at home:: Cardiac Your food should be the consistency of: Regular Your liquids should be the consistency of: Regular/Thin Discharge Activity: Return to Normal Activity Weight Bearing Status: Weight bearing as tolerated Call your doctor if you observe: Shortness of breath, Swelling in the ankles, Chest pain Allergies/Adverse Reactions: Allergies atorvastatin [From Lipitor] Allergy (Verified 10/11/17 17:20) Swelling Penicillins Allergy (Verified 10/11/17 17:20) Anaphylaxis rosuvastatin [From Crestor] Allergy (Verified 10/11/17 17:20) Swelling Medications to take at Discharge Citalopram Hydrobromide [Celexa] 40 mg PO QHS 12/13/16 Fexofenadine HCl [Claudia Allergy] 180 mg PO DAILY 08/15/17 Lubiprostone [Amitiza] 24 mcg PO BID 08/15/17 Omeprazole 20 mg PO BID 08/15/17 Polyethylene Glycol 3350 [Miralax] 17 gm PO BID 08/15/17 Aspirin E.C. [Ecotrin] 81 mg PO DAILY@0800 #30 tab 10/13/17 Clopidogrel Bisulfate [Plavix] 75 mg PO DAILY #30 tab 10/13/17 Gemfibrozil [Lopid] 600 mg PO BIDAC #60 tab 10/13/17 Hydrochlorothiazide 12.5 mg PO DAILY #30 cap 10/13/17 Losartan Potassium [Cozaar] 25 mg PO DAILY #30 tab 10/13/17 The following prescriptions were given: Aspirin E.C. [Ecotrin] 81 mg PO DAILY@0800 #30 tab Clopidogrel Bisulfate [Plavix] 75 mg PO DAILY #30 tab Gemfibrozil [Lopid] 600 mg PO BIDAC #60 tab Hydrochlorothiazide 12.5 mg PO DAILY #30 cap Losartan Potassium [Cozaar] 25 mg PO DAILY #30 tab Primary Care Physician: Anatoly Zuniga MD [Primary Care Provider] - Please follow up with your Primary Care Physician in: one week Test Results: Test results from this visit will be discussed in further detail at your follow- up appointment, if applicable. Please Follow Up With: Edis Ewing MD When: October 27 2017 Proposed Discharge Date: 10/13/17 Cardiac Rehab Referral Please Follow Up with Cardiac Rehabilitation:: 2 Weeks Cardiac Rehabilitation was informed of this Referral:: Yes - Notifies Card Rehab
--- NOTE | 2017-10-13 09:14 | PCM.DC.SUM ---
Discharge Date and Diagnosis Date of Admission: 10/11/17 Date of Discharge: 10/13/17 - Primary Discharge Diagnosis Active and Suspected Problems (Last Updated 10/05/17 @ 09:01 by Radha Warren) Unstable angina (Acute) - Secondary Discharge Diagnosis Chronic Problems (Last Updated 10/05/17 @ 09:01 by Radha Warren) Depression (Chronic) GERD (gastroesophageal reflux disease) (Chronic) Irritable bowel syndrome (Chronic) Hospital Course and Treatment Imaging Results: Diagnostic Data Chest X-Ray 10/11/17 17:50 IMPRESSION: No acute thoracic pathology. Electronically Signed: Darius Mccullough, at 18:20 EDT Tel , Service support , Chest CTA 10/11/17 19:25 IMPRESSION: No evidence of pulmonary embolus or other acute thoracic disease. Evidence of prior granulomatous disease. Electronically Signed: Darius Mccullough, at 20:21 EDT Tel , Service support , Laboratory Tests 10/11/17 10/11/17 10/11/17 17:22 17:22 19:03 WBC 5.8 RBC 4.44 Hgb 13.1 Hct 39.5 MCV 89.0 MCH 29.5 MCHC 33.2 RDW 13.2 RDW Differential 42.9 Plt Count 255 MPV 9.4 Immature Gran % (Auto) 0.200 Neut % (Auto) 39.9 L Lymph % (Auto) 48.8 H Nance % (Auto) 9.0 Eos % (Auto) 1.4 Baso % (Auto) 0.7 Absolute Neuts (auto) 2.3 Absolute Lymphs (auto) 2.82 Total Counted Not Reportable ESR PT INR APTT Activated Clotting Time D-Dimer Quant (PE/DVT) 1.78 H* Sodium 140 Potassium 4.1 Chloride 107 Carbon Dioxide 26.0 Anion Gap 7 BUN 15 Creatinine 0.89 Estim Creat Clear Calc 50.79 Est GFR (MDRD) Af Amer 80 Est GFR (MDRD) Non-Af 66 BUN/Creatinine Ratio 16.8 Glucose 82 Calcium 9.5 Troponin I < 0.015 Triglycerides Cholesterol LDL Cholesterol VLDL Cholesterol HDL Cholesterol 10/11/17 10/12/17 10/12/17 22:36 00:55 04:14 WBC RBC Hgb Hct MCV MCH MCHC RDW RDW Differential Plt Count MPV Immature Gran % (Auto) Neut % (Auto) Lymph % (Auto) Nance % (Auto) Eos % (Auto) Baso % (Auto) Absolute Neuts (auto) Absolute Lymphs (auto) Total Counted ESR PT INR APTT Activated Clotting Time D-Dimer Quant (PE/DVT) Sodium 143 Potassium 4.1 Chloride 109 H Carbon Dioxide 26.0 Anion Gap 8 BUN 15 Creatinine 0.84 Estim Creat Clear Calc 53.81 Est GFR (MDRD) Af Amer 86 Est GFR (MDRD) Non-Af 71 BUN/Creatinine Ratio 17.9 Glucose 99 Calcium 8.8 Troponin I < 0.015 < 0.015 < 0.015 Triglycerides Cholesterol LDL Cholesterol VLDL Cholesterol HDL Cholesterol 10/12/17 10/12/17 10/12/17 04:14 04:14 04:14 WBC 4.8 RBC 4.09 L Hgb 12.1 Hct 36.3 L MCV 88.8 MCH 29.6 MCHC 33.3 RDW 13.1 RDW Differential 42.0 Plt Count 214 MPV 9.4 Immature Gran % (Auto) Neut % (Auto) Lymph % (Auto) Nance % (Auto) Eos % (Auto) Baso % (Auto) Absolute Neuts (auto) Absolute Lymphs (auto) Total Counted ESR 3 PT 13.7 INR 1.1 APTT 30.5 Activated Clotting Time D-Dimer Quant (PE/DVT) Sodium Potassium Chloride Carbon Dioxide Anion Gap BUN Creatinine Estim Creat Clear Calc Est GFR (MDRD) Af Amer Est GFR (MDRD) Non-Af BUN/Creatinine Ratio Glucose Calcium Troponin I Triglycerides Cholesterol LDL Cholesterol VLDL Cholesterol HDL Cholesterol 10/12/17 10/12/17 10/13/17 04:14 11:23 05:00 WBC RBC Hgb Hct MCV MCH MCHC RDW RDW Differential Plt Count MPV Immature Gran % (Auto) Neut % (Auto) Lymph % (Auto) Nance % (Auto) Eos % (Auto) Baso % (Auto) Absolute Neuts (auto) Absolute Lymphs (auto) Total Counted ESR PT INR APTT Activated Clotting Time 208 H D-Dimer Quant (PE/DVT) Sodium 145 Potassium 4.3 Chloride 112 H Carbon Dioxide 22.0 Anion Gap 11 BUN 10 Creatinine 0.80 Estim Creat Clear Calc 56.50 Est GFR (MDRD) Af Amer 91 Est GFR (MDRD) Non-Af 75 BUN/Creatinine Ratio 12.5 Glucose 98 Calcium 8.6 Troponin I Triglycerides 215 H Cholesterol 292 H LDL Cholesterol 196 H VLDL Cholesterol 43 H HDL Cholesterol 53 10/13/17 05:00 WBC 4.7 RBC 3.63 L Hgb 11.0 L Hct 32.5 L MCV 89.5 MCH 30.3 MCHC 33.8 RDW 13.1 RDW Differential 41.9 Plt Count 203 MPV 9.5 Immature Gran % (Auto) Neut % (Auto) Lymph % (Auto) Nance % (Auto) Eos % (Auto) Baso % (Auto) Absolute Neuts (auto) Absolute Lymphs (auto) Total Counted ESR PT INR APTT Activated Clotting Time D-Dimer Quant (PE/DVT) Sodium Potassium Chloride Carbon Dioxide Anion Gap BUN Creatinine Estim Creat Clear Calc Est GFR (MDRD) Af Amer Est GFR (MDRD) Non-Af BUN/Creatinine Ratio Glucose Calcium Troponin I Triglycerides Cholesterol LDL Cholesterol VLDL Cholesterol HDL Cholesterol Cardiology- Dr Ewing Operations: None Procedures: Cardiac catheterization - with stent to RCA Summary of Care Provided: he is a 71-year-old with a history of hypertension, hyperlipidemia GERD, Takotsubo cardiomyopathy, depression and anxiety was admitted with a complaint of progressively worsening chest pain that started about a week ago. It felt pressure-like and she had felt like a squeezing around her heart. She had had a equipment monitor phototypesetting on for about 30 days and based on abnormal rhythm found, she had a heart cath done about a week ago which found 50-75% blockage in the RCA. SHe was told to follow-up with an EP doctor for possible pacemaker. She presented 1 day ago with the above symptoms and cardiology was consulted. She was started on Plavix loading dose and was managed for unstable angina. She had cardiac catheterization with placement of drug-eluting stents in RCA. Patient was started on gemfibrozil for elevated LDL she is allergic to atorvastatin and also started on hydrochlorothiazide and losartan. She was started on metoprolol on account of bradycardia. Patient remained stable and was discharged home on 10/13/2017 to follow-up with cardiology on 10/27/2017 and with her PCP in 1 week. Patient seen and examined prior to discharge. She had no complaints and felt well. She denies any fever or chills, any cough or chest pain, any shortness of breath, abdominal pain, any diarrhea or vomiting. Review of systems is otherwise negative. Vitals: Vital Signs Height 5 ft 4 in Weight: 159 lb Weight in Pounds 159.2 lbs BMI 27.3 Pulse Ox 96 Temperature 98.8 F Pulse Rate 66 Respiratory Rate 18 Blood Pressure [BP] 103/68 Blood Pressure [2nd BP] 155/78 Blood Pressure 143/78 Blood Pressure Position [BP] Sitting Blood Pressure Position [2nd Sitting BP] Blood Pressure Position Semi-Fowlers []General: Alert, Oriented x3, Cooperative, No apparent distress HEENT: Atraumatic, PERRLA, EOMI, Normocephalic Oral: Moist Mucosa Neck: Supple, No JVD, Negative Carotid Bruits Lungs: Clear to auscultation, Normal air movement, No rhonchi, No wheeze, No rales Cardiovascular: Regular rate, Regular Rhythm, Normal S1, Normal S2, No murmurs Abdomen: Bowel Sounds Present, Soft, Non Tender Extremities: No clubbing, No cyanosis, No edema, Capillary Refill Less than 3 Seconds Skin: No rashes, No breakdown Musculoskeletal: No Tenderness to Palpation of Joints or Extremities; mild tenderness in right groin, at site of cath Lymphatic: No Cervical, Supraclavicular, or Inguinal Adenopathy Neurological: Cranial nerves II-XII grossly intact, Motor Exam 5/5 strength throughout Psych/Mental Status: Normal Affect, Appropriate, Alert and oriented to time, place, person, mood and affect Plan as stated above. Discharge Diet: 2000 mg Sodium Diet Discharge Activity: Return to Normal Activity Weight Bearing Status: Weight bearing as tolerated Call your doctor if you observe: Shortness of breath, Swelling in the ankles, Chest pain Home Medications: Medications to take at Discharge Citalopram Hydrobromide [Celexa] 40 mg PO QHS 12/13/16 Fexofenadine HCl [Claudia Allergy] 180 mg PO DAILY 08/15/17 Lubiprostone [Amitiza] 24 mcg PO BID 08/15/17 Omeprazole 20 mg PO BID 08/15/17 Polyethylene Glycol 3350 [Miralax] 17 gm PO BID 08/15/17 Aspirin E.C. [Ecotrin] 81 mg PO DAILY@0800 #30 tab 10/13/17 Clopidogrel Bisulfate [Plavix] 75 mg PO DAILY #30 tab 10/13/17 Gemfibrozil [Lopid] 600 mg PO BIDAC #60 tab 10/13/17 Hydrochlorothiazide 12.5 mg PO DAILY #30 cap 10/13/17 Losartan Potassium [Cozaar] 25 mg PO DAILY #30 tab 10/13/17 Following Prescrptions Were Given to Patient: Aspirin E.C. [Ecotrin] 81 mg PO DAILY@0800 #30 tab Clopidogrel Bisulfate [Plavix] 75 mg PO DAILY #30 tab Gemfibrozil [Lopid] 600 mg PO BIDAC #60 tab Hydrochlorothiazide 12.5 mg PO DAILY #30 cap Losartan Potassium [Cozaar] 25 mg PO DAILY #30 tab Primary Care Physician: Anatoly Zuniga MD [Primary Care Provider] - Please follow up with your Primary Care Physician in: one week Please Follow Up With: Edis Ewing MD When: October 27 2017 Disposition: Home Minutes spent on discharge:: 35 Patient Condition:: Stable Medical Necessity - Tobacco Use Smoking Status: Never smoker Meaningful Use Info Meaningful Use Diagnoses (Choose all that apply): AMI - AMI Aspirin given w/in 24hrs of arrival?: Yes ASA at discharge?: Yes Statins at discharge?: No Reason statins not ordered:: Allergy - given Gemfibrozil Ras/ARB at discharge?: Yes Beta Hunter at discharge?: No Reason Beta Hunter not ordered:: Hypotension - bradycardia, not hypotension Done w/ Acute CO measure.: Yes Code Visit Inpatient E&M: 18871 Disch Hosp
--- NOTE | 2017-10-13 09:18 | DS.PCM_ITS ---
Discharge Date and Diagnosis Date of Admission: 10/11/17 Date of Discharge: 10/13/17 - Primary Discharge Diagnosis Active and Suspected Problems (Last Updated 10/05/17 @ 09:01 by Radha Warren ) Unstable angina (Acute) - Secondary Discharge Diagnosis Chronic Problems (Last Updated 10/05/17 @ 09:01 by Radha Warren) Depression (Chronic) GERD (gastroesophageal reflux disease) (Chronic) Irritable bowel syndrome (Chronic) Hospital Course and Treatment Imaging Results: Diagnostic Data Chest X-Ray 10/11/17 17:50 IMPRESSION: No acute thoracic pathology. Electronically Signed: Darius Mccullough, at 18:20 EDT Tel , Service support , Chest CTA 10/11/17 19:25 IMPRESSION: No evidence of pulmonary embolus or other acute thoracic disease. Evidence of prior granulomatous disease. Electronically Signed: Darius Mccullough, at 20:21 EDT Tel , Service support , Laboratory Tests 10/11/17 10/11/17 10/11/17 17:22 17:22 19:03 WBC 5.8 RBC 4.44 Hgb 13.1 Hct 39.5 MCV 89.0 MCH 29.5 MCHC 33.2 RDW 13.2 RDW Differential 42.9 Plt Count 255 MPV 9.4 Immature Gran % (Auto) 0.200 Neut % (Auto) 39.9 L Lymph % (Auto) 48.8 H [place] % (Auto) 9.0 Eos % (Auto) 1.4 Baso % (Auto) 0.7 Absolute Neuts (auto) 2.3 Absolute Lymphs (auto) 2.82 Total Counted Not Reportable ESR PT INR APTT Activated Clotting Time D-Dimer Quant (PE/DVT) 1.78 H* Sodium 140 Potassium 4.1 Chloride 107 Carbon Dioxide 26.0 Anion Gap 7 BUN 15 Creatinine 0.89 Estim Creat Clear Calc 50.79 Est GFR (MDRD) Af Amer 80 Est GFR (MDRD) Non-Af 66 BUN/Creatinine Ratio 16.8 Glucose 82 Calcium 9.5 Troponin I < 0.015 Triglycerides Cholesterol LDL Cholesterol VLDL Cholesterol HDL Cholesterol 10/11/17 10/12/17 10/12/17 22:36 00:55 04:14 WBC RBC Hgb Hct MCV MCH MCHC RDW RDW Differential Plt Count MPV Immature Gran % (Auto) Neut % (Auto) Lymph % (Auto) [place] % (Auto) Eos % (Auto) Baso % (Auto) Absolute Neuts (auto) Absolute Lymphs (auto) Total Counted ESR PT INR APTT Activated Clotting Time D-Dimer Quant (PE/DVT) Sodium 143 Potassium 4.1 Chloride 109 H Carbon Dioxide 26.0 Anion Gap 8 BUN 15 Creatinine 0.84 Estim Creat Clear Calc 53.81 Est GFR (MDRD) Af Amer 86 Est GFR (MDRD) Non-Af 71 BUN/Creatinine Ratio 17.9 Glucose 99 Calcium 8.8 Troponin I < 0.015 < 0.015 < 0.015 Triglycerides Cholesterol LDL Cholesterol VLDL Cholesterol HDL Cholesterol 10/12/17 10/12/17 10/12/17 04:14 04:14 04:14 WBC 4.8 RBC 4.09 L Hgb 12.1 Hct 36.3 L MCV 88.8 MCH 29.6 MCHC 33.3 RDW 13.1 RDW Differential 42.0 Plt Count 214 MPV 9.4 Immature Gran % (Auto) Neut % (Auto) Lymph % (Auto) [place] % (Auto) Eos % (Auto) Baso % (Auto) Absolute Neuts (auto) Absolute Lymphs (auto) Total Counted ESR 3 PT 13.7 INR 1.1 APTT 30.5 Activated Clotting Time D-Dimer Quant (PE/DVT) Sodium Potassium Chloride Carbon Dioxide Anion Gap BUN Creatinine Estim Creat Clear Calc Est GFR (MDRD) Af Amer Est GFR (MDRD) Non-Af BUN/Creatinine Ratio Glucose Calcium Troponin I Triglycerides Cholesterol LDL Cholesterol VLDL Cholesterol HDL Cholesterol 10/12/17 10/12/17 10/13/17 04:14 11:23 05:00 WBC RBC Hgb Hct MCV MCH MCHC RDW RDW Differential Plt Count MPV Immature Gran % (Auto) Neut % (Auto) Lymph % (Auto) [place] % (Auto) Eos % (Auto) Baso % (Auto) Absolute Neuts (auto) Absolute Lymphs (auto) Total Counted ESR PT INR APTT Activated Clotting Time 208 H D-Dimer Quant (PE/DVT) Sodium 145 Potassium 4.3 Chloride 112 H Carbon Dioxide 22.0 Anion Gap 11 BUN 10 Creatinine 0.80 Estim Creat Clear Calc 56.50 Est GFR (MDRD) Af Amer 91 Est GFR (MDRD) Non-Af 75 BUN/Creatinine Ratio 12.5 Glucose 98 Calcium 8.6 Troponin I Triglycerides 215 H Cholesterol 292 H LDL Cholesterol 196 H VLDL Cholesterol 43 H HDL Cholesterol 53 10/13/17 05:00 WBC 4.7 RBC 3.63 L Hgb 11.0 L Hct 32.5 L MCV 89.5 MCH 30.3 MCHC 33.8 RDW 13.1 RDW Differential 41.9 Plt Count 203 MPV 9.5 Immature Gran % (Auto) Neut % (Auto) Lymph % (Auto) [place] % (Auto) Eos % (Auto) Baso % (Auto) Absolute Neuts (auto) Absolute Lymphs (auto) Total Counted ESR PT INR APTT Activated Clotting Time D-Dimer Quant (PE/DVT) Sodium Potassium Chloride Carbon Dioxide Anion Gap BUN Creatinine Estim Creat Clear Calc Est GFR (MDRD) Af Amer Est GFR (MDRD) Non-Af BUN/Creatinine Ratio Glucose Calcium Troponin I Triglycerides Cholesterol LDL Cholesterol VLDL Cholesterol HDL Cholesterol Cardiology- Dr Ewing Operations: None Procedures: Cardiac catheterization - with stent to RCA Summary of Care Provided: he is a 71-year-old with a history of hypertension, hyperlipidemia GERD, Takotsubo cardiomyopathy, depression and anxiety was admitted with a complaint of progressively worsening chest pain that started about a week ago. It felt pressure-like and she had felt like a squeezing around her heart. She had had a superintendent track on for about 30 days and based on abnormal rhythm found, she had a heart cath done about a week ago which found 50-75% blockage in the RCA. SHe was told to follow-up with an EP doctor for possible pacemaker. She presented 1 day ago with the above symptoms and cardiology was consulted. She was started on Plavix loading dose and was managed for unstable angina. She had cardiac catheterization with placement of drug-eluting stents in RCA. Patient was started on gemfibrozil for elevated LDL she is allergic to atorvastatin and also started on hydrochlorothiazide and losartan. She was started on metoprolol on account of bradycardia. Patient remained stable and was discharged home on 10/13/2017 to follow-up with cardiology on 10/27/2017 and with her PCP in 1 week. Patient seen and examined prior to discharge. She had no complaints and felt well. She denies any fever or chills, any cough or chest pain, any shortness of breath, abdominal pain, any diarrhea or vomiting. Review of systems is otherwise negative. Vitals: Vital Signs Height 5 ft 4 in Weight: 159 lb Weight in Pounds 159.2 lbs BMI 27.3 Pulse Ox 96 Temperature 98.8 F Pulse Rate 66 Respiratory Rate 18 Blood Pressure [BP] 103/68 Blood Pressure [2nd BP] 155/78 Blood Pressure 143/78 Blood Pressure Position [BP] Sitting Blood Pressure Position [2nd Sitting BP] Blood Pressure Position Semi-Fowlers []General: Alert, Oriented x3, Cooperative, No apparent distress HEENT: Atraumatic, PERRLA, EOMI, Normocephalic Oral: Moist Mucosa Neck: Supple, No JVD, Negative Carotid Bruits Lungs: Clear to auscultation, Normal air movement, No rhonchi, No wheeze, No rales Cardiovascular: Regular rate, Regular Rhythm, Normal S1, Normal S2, No murmurs Abdomen: Bowel Sounds Present, Soft, Non Tender Extremities: No clubbing, No cyanosis, No edema, Capillary Refill Less than 3 Seconds Skin: No rashes, No breakdown Musculoskeletal: No Tenderness to Palpation of Joints or Extremities; mild tenderness in right groin, at site of cath Lymphatic: No Cervical, Supraclavicular, or Inguinal Adenopathy Neurological: Cranial nerves II-XII grossly intact, Motor Exam 5/5 strength throughout Psych/Mental Status: Normal Affect, Appropriate, Alert and oriented to time, place, person, mood and affect Plan as stated above. Discharge Diet: 2000 mg Sodium Diet Discharge Activity: Return to Normal Activity Weight Bearing Status: Weight bearing as tolerated Call your doctor if you observe: Shortness of breath, Swelling in the ankles, Chest pain Home Medications: Medications to take at Discharge Citalopram Hydrobromide [Celexa] 40 mg PO QHS 12/13/16 Fexofenadine HCl [Claudia Allergy] 180 mg PO DAILY 08/15/17 Lubiprostone [Amitiza] 24 mcg PO BID 08/15/17 Omeprazole 20 mg PO BID 08/15/17 Polyethylene Glycol 3350 [Miralax] 17 gm PO BID 08/15/17 Aspirin E.C. [Ecotrin] 81 mg PO DAILY@0800 #30 tab 10/13/17 Clopidogrel Bisulfate [Plavix] 75 mg PO DAILY #30 tab 10/13/17 Gemfibrozil [Lopid] 600 mg PO BIDAC #60 tab 10/13/17 Hydrochlorothiazide 12.5 mg PO DAILY #30 cap 10/13/17 Losartan Potassium [Cozaar] 25 mg PO DAILY #30 tab 10/13/17 Following Prescrptions Were Given to Patient: Aspirin E.C. [Ecotrin] 81 mg PO DAILY@0800 #30 tab Clopidogrel Bisulfate [Plavix] 75 mg PO DAILY #30 tab Gemfibrozil [Lopid] 600 mg PO BIDAC #60 tab Hydrochlorothiazide 12.5 mg PO DAILY #30 cap Losartan Potassium [Cozaar] 25 mg PO DAILY #30 tab Primary Care Physician: Anatoly Zuniga MD [Primary Care Provider] - Please follow up with your Primary Care Physician in: one week Please Follow Up With: Edis Ewing MD When: October 27 2017 Disposition: Home Minutes spent on discharge:: 35 Patient Condition:: Stable Medical Necessity - Tobacco Use Smoking Status: Never smoker Meaningful Use Info Meaningful Use Diagnoses (Choose all that apply): AMI - AMI Aspirin given w/in 24hrs of arrival?: Yes ASA at discharge?: Yes Statins at discharge?: No Reason statins not ordered:: Allergy - given Gemfibrozil Ras/ARB at discharge?: Yes Beta Hunter at discharge?: No Reason Beta Hunter not ordered:: Hypotension - bradycardia, not hypotension Done w/ Acute NH measure.: Yes Code Visit Inpatient E&M: 07987 Disch Hosp
--- NOTE | 2017-10-13 10:52 | PCM.PN.CARD ---
Subjectve: Patient seen and examined this morning. Patient denies any chest pain, shortness of breath and fit in fact feels much better. Telemetry overnight was normal sinus rhythm, no dropped beats or sinus arrhythmias. Right groin is clean/dry/intact with mild tenderness, no ecchymosis, no bruits, no hematoma. Hemoglobin and creatinine are within nominal limits. EKG shows normal sinus rhythm, no acute changes. Objective: Vital Signs Temp Pulse Resp BP Pulse Ox 98.8 F 66 18 103/68 96 10/13/17 08:00 10/13/17 09:00 10/13/17 09:00 10/13/17 09:00 10/13/17 09:00 Oxygen Delivery Method Room Air Weight: 159 lb Intake and Output for Last 24 Hours 10/11/17 10/12/17 10/13/17 23:59 23:59 23:59 Intake Total 1195 / 1195 100 / 100 Output Total 500 / 500 Balance 695 / 695 100 / 100 General: Awake, Alert, Oriented x 3 HEENT: PERRL, EOMI, Sclera Non Icteric Neck: Supple, Good ROM, No Lymph Node Enlargement Lungs: Clear to auscultation Cardiovascular: Regular Rhythm, Normal S1, Normal S2, No Murmurs, No Rubs, No Gallops Vascular: No Carotid Bruits, Normal Femoral Pulses, Normal Radial Pulses, Normal Dorsalis Pedal Pulse, Normal Posterior Tibial Pulses Abdomen: Bowel Sounds Present, Soft, Non Tender, No HSM, No Organomegaly Extremities: No Cyanosis, No Clubbing, No edema Neurological: No Focal Motor or Sensory Deficit 10/13/17 05:00: Sodium 145, Potassium 4.3, Chloride 112 H, Carbon Dioxide 22.0, Anion Gap 11, BUN 10, Creatinine 0.80, Est GFR (MDRD) Af Amer 91, Est GFR (MDRD) Non-Af 75, BUN/Creatinine Ratio 12.5, Glucose 98, Calcium 8.6 10/13/17 05:00: WBC 4.7, RBC 3.63 L, Hgb 11.0 L, Hct 32.5 L, MCV 89.5, MCH 30.3, MCHC 33.8, RDW 13.1, RDW Differential 41.9, Plt Count 203, MPV 9.5 Rhythm: EKG: ECHO: Stress Test: Cardiac Cath: PCI: CT Surgery: Holter monitor: EPS: PPM: CXR: Chest CT Scan: Medical Necessity - Tobacco Use Smoking Status: Never smoker Assessment/Plan 1. Unstable angina: The patient comes back with recurrent exertional anginal symptoms in the face of evaluation of her proximal RCA with and IFR followed by an IVUS evaluation about 1 week ago. Given the patient's symptoms, risk factors, hypertension, hypercholesterolemia, and coronary disease which was detected by catheterization I recommended the patient undergo elective angioplasty and stenting of her proximal RCA. This took place on 10/12/17, with an excellent result. No compromise of her SA diana branch took place and we were careful to avoid compromising this. In addition she may require adjustment of her medications given her bradycardia. I recommended starting hydrochlorothiazide 12.5 mg p.o. daily for her elevated diastolic blood pressure to assist with diuresis. This morning the patient is doing quite well. She denies any chest pain and in fact feels much better. 2. Hyperlipidemia: Patient is allergic to Lipitor and Crestor, and most likely allergic to most statins. Recommend obtaining a fasting lipid profile, and aggressively addressing her LDL cholesterol. Recommend starting gemfibrozil 600 mg p.o. twice daily and repeating lipid profile in 6 weeks time. 3. Thank you very much for the opportunity to participate in the cardiac care of your patient. Patient may be discharged home today and follow-up with Dr. Heath going forward. Code Visit Inpatient E&M: 51938 Subs Hosp L2
--- NOTE | 2017-10-13 10:55 | PN.CARD_ITS ---
Subjectve: Patient seen and examined this morning. Patient denies any chest pain, shortness of breath and fit in fact feels much better. Telemetry overnight was normal sinus rhythm, no dropped beats or sinus arrhythmias. Right groin is clean/dry/intact with mild tenderness, no ecchymosis, no bruits, no hematoma. Hemoglobin and creatinine are within nominal limits. EKG shows normal sinus rhythm, no acute changes. Objective: Vital Signs Temp Pulse Resp BP Pulse Ox 98.8 F 66 18 103/68 96 10/13/17 08:00 10/13/17 09:00 10/13/17 09:00 10/13/17 09:00 10/13/17 09:00 Oxygen Delivery Method Room Air Weight: 159 lb Intake and Output for Last 24 Hours 10/11/17 10/12/17 10/13/17 23:59 23:59 23:59 Intake Total 1195 / 1195 100 / 100 Output Total 500 / 500 Balance 695 / 695 100 / 100 General: Awake, Alert, Oriented x 3 HEENT: PERRL, EOMI, Sclera Non Icteric Neck: Supple, Good ROM, No Lymph Node Enlargement Lungs: Clear to auscultation Cardiovascular: Regular Rhythm, Normal S1, Normal S2, No Murmurs, No Rubs, No Gallops Vascular: No Carotid Bruits, Normal Femoral Pulses, Normal Radial Pulses, Normal Dorsalis Pedal Pulse, Normal Posterior Tibial Pulses Abdomen: Bowel Sounds Present, Soft, Non Tender, No HSM, No Organomegaly Extremities: No Cyanosis, No Clubbing, No edema Neurological: No Focal Motor or Sensory Deficit 10/13/17 05:00: Sodium 145, Potassium 4.3, Chloride 112 H, Carbon Dioxide 22.0, Anion Gap 11, BUN 10, Creatinine 0.80, Est GFR (MDRD) Af Amer 91, Est GFR (MDRD ) Non-Af 75, BUN/Creatinine Ratio 12.5, Glucose 98, Calcium 8.6 10/13/17 05:00: WBC 4.7, RBC 3.63 L, Hgb 11.0 L, Hct 32.5 L, MCV 89.5, MCH 30.3 , MCHC 33.8, RDW 13.1, RDW Differential 41.9, Plt Count 203, MPV 9.5 Rhythm: EKG: ECHO: Stress Test: Cardiac Cath: PCI: CT Surgery: Holter monitor: EPS: PPM: CXR: Chest CT Scan: Medical Necessity - Tobacco Use Smoking Status: Never smoker Assessment/Plan 1. Unstable angina: The patient comes back with recurrent exertional anginal symptoms in the face of evaluation of her proximal RCA with and IFR followed by an IVUS evaluation about 1 week ago. Given the patient's symptoms, risk factors, hypertension, hypercholesterolemia, and coronary disease which was detected by catheterization I recommended the patient undergo elective angioplasty and stenting of her proximal RCA. This took place on 10/12/17, with an excellent result. No compromise of her SA diana branch took place and we were careful to avoid compromising this. In addition she may require adjustment of her medications given her bradycardia. I recommended starting hydrochlorothiazide 12.5 mg p.o. daily for her elevated diastolic blood pressure to assist with diuresis. This morning the patient is doing quite well. She denies any chest pain and in fact feels much better. 2. Hyperlipidemia: Patient is allergic to Lipitor and Crestor, and most likely allergic to most statins. Recommend obtaining a fasting lipid profile, and aggressively addressing her LDL cholesterol. Recommend starting gemfibrozil 600 mg p.o. twice daily and repeating lipid profile in 6 weeks time. 3. Thank you very much for the opportunity to participate in the cardiac care of your patient. Patient may be discharged home today and follow-up with Dr. Heath going forward. Code Visit Inpatient E&M: 77700 Subs Hosp L2
== END 2017-10-13 11:21 | disposition home or self-care (01) | DRG 247 ==
LOC: ED 18:38 → PCU 21:40 → ICU 10-12 11:08
PROVIDERS: Internal Medicine Cardiovascular Disease; Admitting Provider Hospitalist; Emergency Provider Emergency Medicine; Family Provider Family Medicine; PCP Family Medicine; Visit Provider Student in an Organized Health Care Education/Training Program
DX: I25.110 Atherosclerotic heart disease of native coronary artery with unstable angina pectoris (principal); I51.81 Takotsubo syndrome; F32.9 Major depressive disorder, single episode, unspecified; K58.1 Irritable bowel syndrome with constipation; K21.9 Gastro-esophageal reflux disease without esophagitis; I10 Essential (primary) hypertension; E78.5 Hyperlipidemia, unspecified; F41.9 Anxiety disorder, unspecified; I49.5 Sick sinus syndrome; Z79.899 Other long term (current) drug therapy
CPT/HCPCS: 36415; 71045; 71275; 80048; 80061; 84484; 85025; 85027; 85347; 85379; 85610; 85652; 85730; 92928; 93005; 93458; 99152; 99153; 99283; C1760; J7030; Q9967; A4216; C1725; C1769; C1874; C1887; C1894; C9600

== ENCOUNTER → 2017-10-26 20:06 | Outpatient (CLI) | payer MEDICARE, OTHER, SELFPAY ==
[2017-10-12 14:26] VITALS: BMI 27.3
[2017-10-26] MEDS: Zolpidem Tartrate 5 MG Tablet PO (21:35)
== END ==
PROVIDERS: Family Provider Family Medicine; PCP Family Medicine; Visit Provider Psychiatry & Neurology Neurology
DX: G47.33 Obstructive sleep apnea (adult) (pediatric) (principal)
CPT/HCPCS: 95811

== ENCOUNTER → 2017-11-11 12:55 | Outpatient (CLI) | payer MEDICARE, OTHER, SELFPAY ==
[2017-10-12 14:26] VITALS: BMI 27.3
--- NOTE | 2017-11-11 13:02 | PCM.CR.HP2 ---
CR - History & Physical - General Arrival date:: 11/11/17 Arrival time:: 13:05 Date of Referral:: 10/12/17 Date of CR Evaluation:: 11/11/17 Referring Physician: Dr. Andrés Heath Primary Diagnosis: Z95.5 Coronary artery stenting - History of Present Cardiac Event Onset Date: Enter Onset Date of cardiac illnesses in Comment field below PTCA or coronary stenting:: Yes - Medications Home Medications: Ambulatory Orders Medication Instructions Recorded Citalopram Hydrobromide [Celexa] 40 mg PO QHS 12/13/16 Fexofenadine HCl [Claudia Allergy] 180 mg PO DAILY 08/15/17 Lubiprostone [Amitiza] 24 mcg PO BID 08/15/17 Omeprazole 20 mg PO BID 08/15/17 Polyethylene Glycol 3350 [Miralax] 17 gm PO BID 08/15/17 Aspirin E.C. [Ecotrin] 81 mg PO DAILY@0800 #30 tab 10/13/17 gemfibrozil 600 mg tablet 600 mg PO BIDAC #60 tab 10/13/17 clopidogrel 75 mg tablet 75 mg PO DAILY #30 tab 10/27/17 hydrochlorothiazide 12.5 mg capsule 12.5 mg PO DAILY #30 cap 10/27/17 isosorbide mononitrate ER 30 mg 30 mg PO QAM #30 tab 10/27/17 tablet,extended release 24 hr losartan 25 mg tablet 25 mg PO DAILY #30 tab 10/27/17 nitroglycerin 0.4 mg sublingual 0.4 mg SUBLINGUAL Q5-15M PRN #25 10/27/17 tablet tab - Allergies Allergies/Adverse Reactions: Allergies atorvastatin [From Lipitor] Allergy (Verified 10/11/17 17:20) Swelling Penicillins Allergy (Verified 10/11/17 17:20) Anaphylaxis rosuvastatin [From Crestor] Allergy (Verified 10/11/17 17:20) Swelling - Sleep Disorder Evaluation Hx of Sleep Apnea: Yes Do you snore loudly (louder than talking or can be heard through closed doors)?: Yes Do you often feel tired/ fatigued/ sleepy during daytime?: Yes Has anyone observed you stop breathing during sleep?: Yes History of Hypertension (for STOP score): No STOP Results: Positive Advanced Directives - Advanced Directives Power of Field Reimbursement Manager: No Living Will: No Advance Directives Information Provided: No Advance Directives on File: No DNR Order?:: No Past Medical History - Past Medical Illness Medical History: Past Medical History (Last Updated 10/27/17 @ 10:59 by KURT Aguilar) Arteriosclerotic heart disease (ASHD) (Acute) I25.10 Stent RCA Sinus node dysfunction (Acute) I49.5 Sinus bradycardia (Acute) R00.1 Chest pain (Acute) R07.9 Shortness of breath (Acute) R06.02 Fatigue (Acute) R53.83 Lightheaded (Acute) R42 Takotsubo cardiomyopathy (Resolved) I51.81 Depression (Chronic) F32.9 GERD (gastroesophageal reflux disease) (Chronic) K21.9 Irritable bowel syndrome (Chronic) K58.9 - Past Surgical History Surgical History: Past Surgical History (Last Reviewed 09/16/17 @ 13:18 by Radha Warren) History of cholecystectomy Z90.49 History of hernia surgery Z98.890, Z87.19 History of hysterectomy Z90.710 History of oophorectomy History of sinus surgery Z98.890 Hx of appendectomy Z90.49 Surgical History: appendectomy, cholecystectomy, hysterectomy, - - Surgery for hiatal hernia. - Family History Summary Family History: Family History (Last Reviewed 09/16/17 @ 13:18 by Radha Warren) Grandmother Myocardial infarction Grandmother Myocardial infarction Social History - Smoking History Smoking Status: Never smoker Hx Tobacco Use: No Hx Smoking Exposure: No - Alcohol Use Alcohol Usage: Yes - socially 1-2 times a year - Substance Abuse Hx Substance Use: No - Occupation Occupation (List type of work in comments):: Retired - Hobbies, Recreation, Social Activities Hobbies: Sewing, Other - gardening, visiting with elderly Recreational Activities: I am able to engage in most, but not all activities Social Environment - Status Marital Status: - Current Living Arrangements Living Environment:: Spouse - Children How many children do you have?: 6 Do any of your children live nearby?: Yes - Safety Do you feel safe in your surroundings?: Yes - Assistance Do you need any assistance at home?: none Review of Systems - Review of Systems Hints: Right click = Denies ([place]). Left click = Reports ([place]) Review of Present Symptoms: Reports: Shortness of Breath with Exertion, Angina - weight on chest, Dizziness/Lightheadedness, Fatigue. Denies: Shortness of Breath at Rest, PVD, Operative Discomfort, Wound Healing, Heart Arrhythmia/Irregularities, Appetite - Normal, Appetite - Special Diet, Sleep - Normal, Sexual Changes - Pain Is Patient Pain Free?: Yes Risk Factor Assessment - Chief Complaint Chief Complaint: Z95.5 coronary artery stenting - Vital Signs Pulse Ox: 99 - Pulse Pulse Rate: 70 Pulse Rhythm: Regular - Hypertension Blood Pressure Sitting - Left Arm: 92/60 - Stress Stress: Long-standing - kids - Diabetes Nutrition Referral for Diabetes: No - Obesity Height: 1.75 m Weight:: 70.76 kg Weight in Pounds: 156.0 lbs Weight Source: Standing Scale Body Mass Index (BMI): 23.0 Nutritional Referral for Obesity: No - Physical Inactivity Physical Inactivity: Recreational activity - Risk Stratification Risk Guidelines: Moderate Risk: Risk Factor for Smoking, Risk Factor for Dyslipidemia, Risk Factor for Diabetes, Risk Factor for Obesity, Risk Factor for Hypertension, Risk Factor for Sedentary Lifestyle, Highest Risk: Risk Factor for Depression - For Smoking Smoking Risk Guidelines: Smoking Low Risk: None or quit greater than 6 months ago. Smoking Moderate Risk: Smoker or quit 6 months or less ago. Smoking High Risk: Smoker - For Dyslipidemia Dyslipidemia Risk Guidelines: Low Risk: Moderate Risk: High Risk: 15-25% fat 25.1-29% fat >/= 30% fat. <7% sat fat 7-9% sat fat >9% sat fat. <150 mg chol 150-299 mg chol >/= 300 mg chol. LDL <100 LDL 100-129 LDL >/= 130. Chol/HDL ratio <5.0 Chol/HDL ratio 5.0-6.0 Chol/HDL ratio >6.0. Triglycerides <100 Triglycerides 100-149 Triglycerides >/= 150 - For Diabetes Mellitus Diabetes Risk Guidelines: Diabetes Low Risk: HgA1c <6.5% and/or FBG <120. Diabetes Moderate Risk: HgA1c 6.6-7.9% and/or FBG 120-180. Diabetes High Risk: HgA1c >/= 8% and/or FBG >180 - For Obesity/Overweight Obesity/Overweight Risk Guidelines: Obesity Low Risk: BMI <25.0. Obesity Moderate Risk: BMI 25-29.9. Obesity High Risk: BMI >/= 30.0 - For Hypertension Hypertension Risk Guidelines: Hypertension Low Risk: Systolic <120 and Diastolic <80. Hypertension Moderate Risk: Systolic 120-139 and Diastolic 80-89. Hypertension High Risk: Systolic >/= 140 and Diastolic >/= 90 - For Sedentary Lifestyle Sedentary Lifestyle Risk Guidelines: Sedentary Lifestyle Low Risk: >/= 1,500 kcal/week. Sedentary Lifestyle Moderate Risk: 700-1,499 kcal/week. Sedentary Lifestyle High Risk: < 700 kcal/week - For Depression Depression Risk Guidelines: Depression Low Risk: Not clinically depressed. Depression Moderate Risk: Mildly depressed. Depression High Risk: Clinically depressed - Family History Family History: Family History (Last Reviewed 09/16/17 @ 13:18 by Radha Warren) Grandmother Myocardial infarction Grandmother Myocardial infarction Motivation - Motivation to Participate On a scale of 1 to 10, how prepared are you to commit to attending program?: 8 What do you see as barriers to successfully being able to complete the program?: none What do you see as the benefits of succesfully completing the program? In other words, what do you hope to get out of participating in the program?: improved health Are there issues you are dealing with that will interfere with completing the program?: none Do you have a spouse or signficant other, family or friends who will help support you to complete the program?: yes
[2017-11-11 14:10] VITALS: BP 92/60; PULSE 70; O2SAT 99; BMI 23.0
--- NOTE | 2017-11-11 14:11 | PCM.CR.ITP ---
General Information - General Information Admitting Diagnosis: Z 95.5 coronary artery stenting - Education/Goals Cardiac Rehabilitation Goals: 1. Maintain the individual as the primary focus of care. 2. To improve the patient's quality of life. 3. Identification of cardiac risk factors and provide cardiac risk factor management. 4. Enhance the psychosocial status of the patient. 5. Reconditioning enough to allow the patient to resume customary activities. 6. Control symptoms of cardiac disease Scale for measuring improvement of personal goals: Enter appropriate number in Comments. 2 = Unchanged. 3 = Slightly Better. 4 = Moderate Improvement. 5 = Met my Goal Personal Goals: Initial Assessment: Improve energy level, Participate in home exercise program, Get back to work, or to resume activities faster, Improve knowledge of cardiac disease, Improve muscle strength and endurance Exercise - Initial Assessment - Visit Date of Eval: 11/11/17 - initial eval - Stages of Change Stages of Change:: Contemplate - Exercise Prescription Mode:: Biodyne, Rower, Airdyne, NuStep, Arm Ergometer Target Heart Rate:: 112-120 - Hypertension Do any of the following apply?: No Resting Blood Pressure:: 92/60 - Intervention Home Exercise/Activity Goal:: Sitting Time <3 hrs/day - Education Goals:: Warm-up, RPE JUNO Scale, S/S, Safe Exercise, Self-Monitoring - Exercise Program Goals Exercise Program Goals: Aerobic Activity >30 min, B/P <130/80 Nutrition - Initial Assessment - Program Goals Nutrition Program Goals: LDL <70. Total Cholesterol <200. HDL >45. Triglycerides <150. HgbA1C <7%. BMI <25 - Visit Date of Assessment:: 11/11/17 - Stages of Change Stages of Change:: Contemplate - Diabetes Diabetes:: No - Weight Management Height: 1.75 m Weight:: 70.76 kg Total Score:: 4 - Intervention Referral to dietitian:: No Referral to Diabetic Clinic:: No Will attend diet classes:: Yes - Education Gave educational materials for:: Signs & symptoms of hypoglycemia, Signs & symptoms of hyperglycemia, Relate diabetes to coronary artery disease, Healthy eating Tobacco - Initial Assessment - Program Goals Tobacco Program Goals: Complete smoking cessation. Attend education classes. Improve Knowledge Test score - Stage of Change Stages of Change:: Contemplate - Learning Barriers Total Score:: 13 - Family Support Do you have family support?: Yes - Tobacco Use Tobacco Use: Non-smoker Do you use smokeless tobacco?: No - Intervention Smoking Cessation Referral:: No Individual Education/Counseling:: No Education Schedule Given:: Yes - Education Gave educational material for:: Tobacco triggers, Coronary artery disease, Risk factors, Sexuality, Medical compliance, Cardiac A&P, Angina signs & symptoms Psychosocial - Initial Assess - Target Goals Target Goals: Assess presence or absence of depression. Using a valid screening tool, maximizes coping skills. Positive support system - Stages of Change Stages of Change:: Contemplate - Psychosocial Test Tool Used:: HANDS Depression Questionnaire Total Mood Screening Score:: 16 Self-Efficacy Score:: 3 - Intervention PS - Interventions: Yes Attend Stress Management Classes, Yes Uses Stress Management Skills, No Referral to Mental Health, No Referral to [facility] Case Management, No Referral to Physician - Education Gave educational materials for:: Coping techniques, Signs & symptoms of depression, Stress management, Relaxation techniques - Assistive Devices Assistive Devices:: None Fall Risk Assessed:: Yes - no treadmill pt has been falling Patient Health Questionnaire Initial Assessment 1. Little interest or pleasure in doing things: More than half the days 2. Feeling down, depressed, or hopeless: More than half the days 3. Trouble falling or staying asleep, or sleeping too much: More than half the days 4. Feeling tired or having little energy: More than half the days 5. Poor appetite or overeating: More than half the days 6. Feeling bad about yourself -- or that you are a failure or have let yourself or your family down: More than half the days 7. Trouble concentrating on things, such as reading the newspaper or watching television: More than half the days 8. Moving or speaking so slowly that other people could have noticed. Or the opposite - being so fidgety or restless that you have been moving around a lot more than usual: More than half the days 9. Thoughts that you would be better off , or of hurting yourself in some way: Not at all How difficult have these problems made it for you to do your work, take care of things at home, or get along with other people?: Somewhat difficult Total Score: 16 WONG-Q SV Test - Statements CAD is a disease of the arteries in the heart: True Examples of risk factors for heart disease: True Angina is chest pain or discomfort: True The benefits of resistance training include: False Eating more meat and dairy products: False Anti-platelet medications such as aspirin are important: True The only effective way to manage stress: False An exercise warm-up slowly increases heart rate: False Prepared, processed foods usually have high sodium: True Depression is common after a heart attack: True The statin medications lower cholesterol: True To control blood pressure, lower the amount of sodium: True If someone gets chest discomfort during walking: False Transfats are partially hydrogenated vegetable oils: True Sleep apnea that is not treated increases the risk: True To control cholesterol, one should become a vegetarian: False Someone knows if he/she is exercising at the right level: I Don't Know Diabetes cannot be prevented with exercise & health eating: True Stress is a large risk for heart attack: True A diet that can help lower blood pressure is rich in: False - Total Score Total Correct Responses: 13 Self-Efficacy Initial Assessment We would like to know how confident you are in doing certain activities. Please select your confidence level for:: Select your confidence level for the following using the scale 1-10 where 1 is not at all confident and 10 is totally confident. Your score is the average of all 6 responses. Fatigue: How confident are you that you can keep the fatigue caused by your disease from interfering with the things you want to do? Select Number: 2 Physical Discomfort or Pain: How confident are you that you can keep the physical discomfort or pain of your disease from interfering with the things you want to do? Select Number: 2 Emotional Distress: How confident are you that you can keep the emotional distress caused by your disease from interfering with the things you want to do? Select Number: 5 Other Symptoms or Health Problems: How confident are you that you can keep other symptoms or health problems from interfering with the things you want to do? Select Number: 3 Different Tasks and Activities: How confident are you that you can do the different tasks and activities needed to manage your health condition so as to reduce your need to see a doctor? Select Number: 3 Medication: How confident are you that you can do things other than just taking medication to reduce how much your illness affects your everyday life? Select Number: 3 Total Score:: 3 Nutrition Survey - Nutrition Survey Instructions Scoring Instructions: Scoring is as follows: Yes = 1 points. No = 0 point. Patient score that is >/=12 is considered to be at potential nutritional risk and could benefit from a referral to a registered dietitian. - Nutrition Survey Initial Have you lost >10 lbs over the past 2 months without trying?: No Are you following a special diet at home for diabetes, low fat, or low salt?: No Are you interested in meeting with a dietitian for help understanding your diet?: Yes Do you eat less than 3 meals a day?: Yes Do you eat fatty meats (stringer, sausage, ribs, etc), fried foods, desserts, large amounts of salad dressings, margarine, butter, or cheese most days?: Yes Do you have food allergies? [Enter types in comment field]: No Do you eat in restaurants more than 3 times a week?: No Do you season food with salt, seasoning salt, or garlic salt?: No Do you used canned, boxed, frozen meals, or soups, seasoning packets?: Yes Total Score:: 4
[2017-11-11 14:21] VITALS: BP 92/60
== END ==
PROVIDERS: Family Provider Family Medicine; PCP Family Medicine; Visit Provider Internal Medicine Cardiovascular Disease
DX: Z95.5 Presence of coronary angioplasty implant and graft (principal)

== ENCOUNTER 2017-11-23 13:00 | Outpatient (RCR) | payer MEDICARE, OTHER, SELFPAY ==
[2017-10-12 14:26] VITALS: BMI 27.3
== END 2017-12-04 23:59 ==
LOC: CR 13:00
PROVIDERS: Family Provider Family Medicine; PCP Family Medicine; Visit Provider Internal Medicine Cardiovascular Disease
DX: Z95.5 Presence of coronary angioplasty implant and graft (principal); I25.10 Atherosclerotic heart disease of native coronary artery without angina pectoris
CPT/HCPCS: 93798

== ENCOUNTER 2017-11-23 13:49 | Observation (INO) | payer MEDICARE, OTHER, SELFPAY ==
[2017-10-12 14:26] VITALS: BMI 27.3
[2017-11-23] VITALS (9 sets, daily range): BP systolic 108–139; BP diastolic 62–86; PULSE 57–69; RESP 14–18; TEMP 36.6–36.8; O2SAT 96–99; BMI 30.2; BMI 27.5
--- NOTE | 2017-11-23 14:07 | EKG12_ITS ---
Test Reason : CP Blood Pressure : / mmHG Vent. Rate : 071 BPM Atrial Rate : 071 BPM P-R Int : 142 ms QRS Dur : 086 ms QT Int : 410 ms P-R-T Axes : 056 007 006 degrees QTc Int : 445 ms Normal sinus rhythm ST & T wave abnormality, consider anterior ischemia Abnormal ECG Confirmed by LLUVIA SAUER, AIRAM ([id number]), editorial writer CAROL PAZ ([id number]) on 11/24/2017 1:31:04 PM Referred By: Gómez Pradhan Confirmed By:AIRAM TEIXEIRA MD
--- NOTE | 2017-11-23 14:10 | RAD_ITS ---
STUDY: X-RAY CHEST REASON FOR EXAM: Female, 72 years old. Chest pain. TECHNIQUE: Single AP portable view of the chest. COMPARISON: Comparison is made with prior study dated October 11, 2017. FINDINGS: EKG electrodes are seen. Scattered calcified granulomas. There is no demonstrated pleural abnormality. Normal size heart. Normal mediastinum and brian. Normal visualized pulmonary arteries. There is atherosclerotic calcification of the aortic arch with tortuosity. Normal visualized thoracic spine. Normal visualized ribs, clavicles, and shoulders. There is no demonstrated abnormality of the visualized soft tissue structures of the upper abdomen. RAD/Chest 1 View (Portable) IMPRESSION: No acute abnormality is present. Electronically Signed: Chico Otoole MD at 14:23 EDT Tel [phone], Service support ,
[2017-11-23] MEDS: Aspirin 81 MG TAB.CHEW 324 MG PO (14:21)
[2017-11-23 14:27] LABS: Absolute Lymphocyte Count 1.97 X10^3/ul (0.83-4.51); Absolute Neutrophil Count 2.5 X10^3/uL (2.0-7.7); Basophil# 0.04 X10^3/uL; Basophil% 0.8 % (0-1); Eosinophil# 0.05 X10^3/uL; Hematocrit 36.1 % (37-47); Hemoglobin 12.1 g/dl (12.0-15.0); Lymphocyte # 1.97 X10^3/ul (4.0); Lymphocyte % 39.3 % (19-41); Mean Corp Hgb Conc 33.5 g/gl (32-36); Mean Corpuscular Hgb 30.3 pg (27.0-32.0); Mean Corpuscular Volume 90.3 fL (81-99); Mean Platelet Vol. 9.2 fl (6.2-12.0); Monocyte# 0.47 X10^3/uL; Monocyte% 9.4 % (0-10); Neutrophil # 2.48 X10^3/uL (2.7-7.7); Neutrophil % 49.5 % (47-70); Platelet Count 251 K/mm3 (150-450); RBC Distribution Width CV 13.5 % (11.6-14.6); RBC Distribution Width SD 44.1 fl (35.1-43.9)
[2017-11-23 14:28] LABS: POSITIVE COUNT NO; POSITIVE DIFFERENTIAL NO; POSITIVE MORPHOLOGY NO
[2017-11-23 14:37] LABS: Anion Gap 10 (5-15); BUN 12 mg/dL (7-18); BUN/Creat Ratio 12.6 RATIO (10-20); Chloride 110 mmol/L (98-107); Creatinine, Serum 0.95 mg/dL (0.55-1.02); EST Glomerular Filtration Rate 62 mL/min (>60); Est Glom Filt Rate - Afr Amer 75 mL/min (>60); Glucose 104 mg/dL (74-106); Sodium Level 142 mmol/L (136-145)
--- NOTE | 2017-11-23 15:27 | NURSING ---
DR GIBSON PAGED
--- NOTE | 2017-11-23 15:30 | PCM.HP.STD ---
<Dahiana Ross - Last Filed: 11/23/17 17:34> Problem List (1) Arteriosclerotic heart disease (ASHD) Status: Chronic Comment: Stent RCA (2) Sinus node dysfunction Status: Chronic (3) Chest pain Status: Acute (4) Takotsubo cardiomyopathy Status: Chronic (5) Depression Status: Chronic (6) GERD (gastroesophageal reflux disease) Status: Chronic (7) Irritable bowel syndrome Status: Chronic History of Present Illness Date of Admission: 11/23/17 Chief Complaint: Chest pain. The patient is a 72 year old F who presents to the emergency room due to chest pain and low blood pressure which occurred during cardiac rehab today while patient was on exercise bike. Patient states for the past few months she has been able to do minimal activity without dizziness, shortness of breath and chest pressure. She states she was recently placed on isosorbide and losartan as outpatient by cardiology. Patient complains of generalized weakness and states she has had frequent falls at home. She lives at home with her . She states she fell last night in her shower. Denies injury at that time. Patient states episode at cardiac rehab today was worse than normal. However, she does state she has had intermittent ongoing episodes of chest pressure with associated diaphoresis and presyncope. Patient states she is afraid to go outside of her home due to these ongoing symptoms. Patient follows with Dr. Heath. Patient has a past medical history of CAD status post stent to RCA 10/12/2017, takotsubo cardiomyopathy, hypertension, hyperlipidemia, IBS/constipation, GERD, depression, anxiety. Past Medical History Past Medical History (Chronic Problems): Chronic Problems (Last Updated 10/27/17 @ 10:59 by KURT Aguilar) Arteriosclerotic heart disease (ASHD) (Chronic) Stent RCA Sinus node dysfunction (Chronic) Takotsubo cardiomyopathy (Chronic) Depression (Chronic) GERD (gastroesophageal reflux disease) (Chronic) Irritable bowel syndrome (Chronic) Medical History: Medical History (Last Updated 10/27/17 @ 10:59 by KURT Aguilar) Arteriosclerotic heart disease (ASHD) (Chronic) I25.10 Stent RCA Sinus node dysfunction (Chronic) I49.5 Chest pain (Acute) R07.9 Takotsubo cardiomyopathy (Chronic) I51.81 Depression (Chronic) F32.9 GERD (gastroesophageal reflux disease) (Chronic) K21.9 Irritable bowel syndrome (Chronic) K58.9 Allergies atorvastatin [From Lipitor] Allergy (Verified 10/11/17 17:20) Swelling Penicillins Allergy (Verified 10/11/17 17:20) Anaphylaxis rosuvastatin [From Crestor] Allergy (Verified 10/11/17 17:20) Swelling Home Medications: Ambulatory Orders Medication Instructions Recorded Citalopram Hydrobromide [Celexa] 40 mg PO QHS 12/13/16 Lubiprostone [Amitiza] 24 mcg PO BID 08/15/17 Omeprazole 20 mg PO BID 08/15/17 Polyethylene Glycol 3350 [Miralax] 17 gm PO BID 08/15/17 Aspirin E.C. [Ecotrin] 81 mg PO DAILY@0800 #30 tab 10/13/17 gemfibrozil 600 mg tablet 600 mg PO BIDAC #60 tab 10/13/17 clopidogrel 75 mg tablet 75 mg PO DAILY #30 tab 10/27/17 isosorbide mononitrate ER 30 mg 30 mg PO QAM #30 tab 10/27/17 tablet,extended release 24 hr losartan 25 mg tablet 25 mg PO DAILY #30 tab 10/27/17 nitroglycerin 0.4 mg sublingual 0.4 mg SUBLINGUAL Q5-15M PRN #25 10/27/17 tablet tab Losartan Potassium 12.5 mg PO DAILY #30 tab 11/23/17 Peppermint Oil [Ibgard] 90 mg PO DAILY 11/23/17 Surgical History: Surgical History (Last Reviewed 09/16/17 @ 13:18 by Radha Warren) History of cholecystectomy Z90.49 History of hernia surgery Z98.890, Z87.19 History of hysterectomy Z90.710 History of oophorectomy History of sinus surgery Z98.890 Hx of appendectomy Z90.49 Surgical History: appendectomy, cholecystectomy, hysterectomy, - - Surgery for hiatal hernia, cath with stent to RCA Psychiatric History: Anxiety, Depression 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 Lives: Spouse/ Significant Other Smoking Status: Never smoker Alcohol: None Drugs: None - *Family History Maternal Family History: Family History (Last Reviewed 11/23/17 @ 15:38 by MARISELA Galvan) Grandmother Myocardial infarction Grandmother Myocardial infarction History Items: No pertinent history Paternal Family History: Family History (Last Reviewed 11/23/17 @ 15:38 by MARISELA Galvan) Grandmother Myocardial infarction Grandmother Myocardial infarction History Items: No pertinent history Review of Systems Constitutional: Denies: Chills, Fever, Weight Change HEENT: Denies: Head Aches, Sinus Congestion, Sinus Drainage Cardiovascular: Reports: Chest Pressure, Chest Tightness, Edema - Left lower extremity, Light Headedness. Denies: Syncope Respiratory: Reports: Shortness of breath upon exertion. Denies: Cough, Shortness of breath at rest, Sputum production Gastrointestinal: Reports: Diarrhea - Chronic. Denies: Abdominal Pain, Nausea, Vomiting Genitourinary: Denies: Dysuria Musculoskeletal: Denies: Joint Pain, Joint Tenderness Skin: Denies: Rash, Wounds Neurological: Denies: Numbness, Tingling, Focal weakness Psychiatric: Reports: Anxiety, Depression Hematologic/ Lymphatic: Denies: Easy Bruising, Easy Bleeding VTE Information - Inpt Only VTE Present on Admission: No VTE Mechan Device Prophylaxis: None VTE Pharm Prophylaxis ordered?: Yes - Physical Exam General: Alert, Oriented x3, Cooperative, No apparent distress HEENT: Atraumatic, PERRLA, EOMI, Normocephalic Oral: Dry Mucosa Neck: Supple, No JVD, Negative Carotid Bruits Lungs: Clear to auscultation, Normal air movement Cardiovascular: Regular rate, Regular Rhythm, Normal S1, Normal S2, No murmurs Abdomen: Bowel Sounds Present, Soft, Non Tender, Non-Distended Extremities: No clubbing, No cyanosis, Capillary Refill Less than 3 Seconds, Edema - Left lower extremity nonpitting Skin: No rashes, No breakdown Musculoskeletal: No Tenderness to Palpation of Joints or Extremities Neurological: Cranial nerves II-XII grossly intact, Neuro grossly intact Psych/Mental Status: Normal Affect, Appropriate Vital Signs Temp Pulse Resp BP Pulse Ox 98.2 F 69 18 129/78 H 99 11/23/17 13:50 11/23/17 13:50 11/23/17 13:50 11/23/17 13:50 11/23/17 14:16 Oxygen Delivery Method Room Air Weight: 176 lb 2.389 oz Body Mass Index (BMI) 30.2 Finger Stick Blood Glucose 93 Laboratory Tests Past 24 Hrs 11/23/17 11/23/17 14:00 14:00 WBC 5.0 RBC 4.00 L Hgb 12.1 Hct 36.1 L MCV 90.3 MCH 30.3 MCHC 33.5 RDW 13.5 RDW Differential 44.1 H Plt Count 251 MPV 9.2 Immature Gran % (Auto) 0.000 Neut % (Auto) 49.5 Lymph % (Auto) 39.3 Cotton % (Auto) 9.4 Eos % (Auto) 1.0 Baso % (Auto) 0.8 Absolute Neuts (auto) 2.5 Absolute Lymphs (auto) 1.97 Total Counted Not Reportable Sodium 142 Potassium 4.0 Chloride 110 H Carbon Dioxide 22.0 Anion Gap 10 BUN 12 Creatinine 0.95 Estim Creat Clear Calc 46.90 Est GFR (MDRD) Af Amer 75 Est GFR (MDRD) Non-Af 62 BUN/Creatinine Ratio 12.6 Glucose 104 Calcium 9.0 Troponin I < 0.015 Assessment/Plan All Active Problems (Last Updated 10/27/17 @ 10:59 by KURT Aguilar) Chest pain (Acute) 1. Chest pain-troponin negative x1. Trend enzymes. Dr. Ewing contacted from ER for cardiology consult. Hold home isosorbide regimen. Decrease losartan regimen to 12.5 mg daily. 2. Dizziness/lightheadedness suspected secondary to orthostatic hypotension-Patient unable to complete orthostatic vitals in ER due to dizziness. Reattempt orthostatic vitals after hydration. Continue IV fluids. Hold home isosorbide regimen. Decrease losartan regimen to 12.5 mg daily. Repeat orthos in morning. 3. Generalized weakness- ongoing. PT/OT eval. 4. CAD s/p stent to RCA 10/12/17-continue aspirin, Plavix, gemfibrozil, isosorbide, losartan. 5. Takotsubo cardiomyopathy-no evidence of acute CHF. Patient had echocardiogram August 2017 which showed an EF of 55%. 6. Hypertension-stable, continue home isosorbide, losartan regimen. 7. Hyperlipidemia-allergy to statins. Continue gemfibrozil. 8. IBS/constipation-continue home medication regimen. 9. GERD-continue PPI. 10. Depression/anxiety-continue home Celexa regimen. DVT prophylaxis- This patient was seen by MARISELA Galvan under the supervision of Dr. Pradhan. <LorneGómez - Last Filed: 11/23/17 18:10> History of Present Illness Seen and examined in ER. Patient came to ER when she got chest pain, dizziness lightheadedness while she was on exercise bike in cardiac rehab today. She has dizziness, near fall and had frequent falls at home. Her diuretic was discontinued. Her chest pain is resolved. [] Past Medical History Medical History: Medical History (Last Updated 10/27/17 @ 10:59 by KURT Aguilar) Arteriosclerotic heart disease (ASHD) (Chronic) I25.10 Stent RCA Sinus node dysfunction (Chronic) I49.5 Chest pain (Acute) R07.9 Takotsubo cardiomyopathy (Chronic) I51.81 Depression (Chronic) F32.9 GERD (gastroesophageal reflux disease) (Chronic) K21.9 Irritable bowel syndrome (Chronic) K58.9 Allergies atorvastatin [From Lipitor] Allergy (Verified 10/11/17 17:20) Swelling Penicillins Allergy (Verified 10/11/17 17:20) Anaphylaxis rosuvastatin [From Crestor] Allergy (Verified 10/11/17 17:20) Swelling Surgical History: Surgical History (Last Reviewed 09/16/17 @ 13:18 by Radha Warren) History of cholecystectomy Z90.49 History of hernia surgery Z98.890, Z87.19 History of hysterectomy Z90.710 History of oophorectomy History of sinus surgery Z98.890 Hx of appendectomy Z90.49 - *Family History Maternal Family History: Family History (Last Reviewed 11/23/17 @ 15:38 by MARISELA Galvan) Grandmother Myocardial infarction Grandmother Myocardial infarction Paternal Family History: Family History (Last Reviewed 11/23/17 @ 15:38 by MARISELA Galvan) Grandmother Myocardial infarction Grandmother Myocardial infarction - Physical Exam General: Alert, Oriented x3, Cooperative HEENT: Atraumatic, PERRLA, EOMI, Normocephalic Neck: Supple, No JVD, Negative Carotid Bruits Lungs: Clear to auscultation, Normal air movement Cardiovascular: Regular rate, Regular Rhythm, Normal S1, Normal S2, No murmurs Abdomen: Bowel Sounds Present, Soft, Non Tender Extremities: Capillary Refill Less than 3 Seconds, Edema Skin: No rashes, No breakdown Musculoskeletal: No Tenderness to Palpation of Joints or Extremities, Arthritic Changes Neurological: Cranial nerves II-XII grossly intact Psych/Mental Status: Normal Affect, Appropriate Vital Signs Temp Pulse Resp BP Pulse Ox 98 F 58 L 16 127/64 H 99 11/23/17 17:29 11/23/17 17:29 11/23/17 17:29 11/23/17 17:29 11/23/17 17:29 Oxygen Delivery Method Room Air Weight: 162 lb 14.746 oz Body Mass Index (BMI) 27.5 Assessment/Plan This patient was seen in conjunction with SOLDERER ASSEMBLERDahiana. I have independently interviewed and examined the patient and reviewed pertinent history, examination findings, laboratory and plan of management. I have reviewed the note and agree with the documented findings with the few additional points. In brief, patient is admitted for near syncope most likely secondary to orthostatic hypotension. As mentioned above, she is not able to complete orthostatic use of dizziness. She was given IV fluid normal saline bolus. ER physician Dr. Pham discussed with Dr. Ewing and advised to hold isosorbide mononitrate. Decrease losartan. She had cardiac cath in October 12, 2017 and found single-vessel coronary artery disease of proximal RCA for which she had a stent. Mild decreased left ventricle systolic function with EF 55%. Mild global hypokinesis. I have discussed my assessment with Dahiana BECKHAM and orders have been reviewed. Code Visit OBSV E&M: 46741 Initial observation care L3
--- NOTE | 2017-11-23 15:37 | HP.PCM_ITS ---
<Dahiana Ross - Last Filed: 11/23/17 17:34> Problem List (1) Arteriosclerotic heart disease (ASHD) Status: Chronic Comment: Stent RCA (2) Sinus node dysfunction Status: Chronic (3) Chest pain Status: Acute (4) Takotsubo cardiomyopathy Status: Chronic (5) Depression Status: Chronic (6) GERD (gastroesophageal reflux disease) Status: Chronic (7) Irritable bowel syndrome Status: Chronic History of Present Illness Date of Admission: 11/23/17 Chief Complaint: Chest pain. The patient is a 72 year old F who presents to the emergency room due to chest pain and low blood pressure which occurred during cardiac rehab today while patient was on exercise bike. Patient states for the past few months she has been able to do minimal activity without dizziness, shortness of breath and chest pressure. She states she was recently placed on isosorbide and losartan as outpatient by cardiology. Patient complains of generalized weakness and states she has had frequent falls at home. She lives at home with her . She states she fell last night in her shower. Denies injury at that time. Patient states episode at cardiac rehab today was worse than normal. However, she does state she has had intermittent ongoing episodes of chest pressure with associated diaphoresis and presyncope. Patient states she is afraid to go outside of her home due to these ongoing symptoms. Patient follows with Dr. Heath. Patient has a past medical history of CAD status post stent to RCA , takotsubo cardiomyopathy, hypertension, hyperlipidemia, IBS/ constipation, GERD, depression, anxiety. Past Medical History Past Medical History (Chronic Problems): Chronic Problems (Last Updated 10/27/17 @ 10:59 by KURT Aguilar) Arteriosclerotic heart disease (ASHD) (Chronic) Stent RCA Sinus node dysfunction (Chronic) Takotsubo cardiomyopathy (Chronic) Depression (Chronic) GERD (gastroesophageal reflux disease) (Chronic) Irritable bowel syndrome (Chronic) Medical History: Medical History (Last Updated 10/27/17 @ 10:59 by KURT Aguilar) Arteriosclerotic heart disease (ASHD) (Chronic) I25.10 Stent RCA Sinus node dysfunction (Chronic) I49.5 Chest pain (Acute) R07.9 Takotsubo cardiomyopathy (Chronic) I51.81 Depression (Chronic) F32.9 GERD (gastroesophageal reflux disease) (Chronic) K21.9 Irritable bowel syndrome (Chronic) K58.9 Allergies atorvastatin [From Lipitor] Allergy (Verified 10/11/17 17:20) Swelling Penicillins Allergy (Verified 10/11/17 17:20) Anaphylaxis rosuvastatin [From Crestor] Allergy (Verified 10/11/17 17:20) Swelling Home Medications: Ambulatory Orders Medication Instructions Recorded Citalopram Hydrobromide [Celexa] 40 mg PO QHS 12/13/16 Lubiprostone [Amitiza] 24 mcg PO BID 08/15/17 Omeprazole 20 mg PO BID 08/15/17 Polyethylene Glycol 3350 [Miralax] 17 gm PO BID 08/15/17 Aspirin E.C. [Ecotrin] 81 mg PO DAILY@0800 #30 tab 10/13/17 gemfibrozil 600 mg tablet 600 mg PO BIDAC #60 tab 10/13/17 clopidogrel 75 mg tablet 75 mg PO DAILY #30 tab 10/27/17 isosorbide mononitrate ER 30 mg 30 mg PO QAM #30 tab 10/27/17 tablet,extended release 24 hr losartan 25 mg tablet 25 mg PO DAILY #30 tab 10/27/17 nitroglycerin 0.4 mg sublingual 0.4 mg SUBLINGUAL Q5-15M PRN #25 10/27/17 tablet tab Losartan Potassium 12.5 mg PO DAILY #30 tab 11/23/17 Peppermint Oil [Ibgard] 90 mg PO DAILY 11/23/17 Surgical History: Surgical History (Last Reviewed 09/16/17 @ 13:18 by Radha Warren) History of cholecystectomy Z90.49 History of hernia surgery Z98.890, Z87.19 History of hysterectomy Z90.710 History of oophorectomy History of sinus surgery Z98.890 Hx of appendectomy Z90.49 Surgical History: appendectomy, cholecystectomy, hysterectomy, - - Surgery for hiatal hernia, cath with stent to RCA Psychiatric History: Anxiety, Depression 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 Lives: Spouse/ Significant Other Smoking Status: Never smoker Alcohol: None Drugs: None - *Family History Maternal Family History: Family History (Last Reviewed 11/23/17 @ 15:38 by MARISELA Galvan) Grandmother Myocardial infarction Grandmother Myocardial infarction History Items: No pertinent history Paternal Family History: Family History (Last Reviewed 11/23/17 @ 15:38 by MARISELA Galvan) Grandmother Myocardial infarction Grandmother Myocardial infarction History Items: No pertinent history Review of Systems Constitutional: Denies: Chills, Fever, Weight Change HEENT: Denies: Head Aches, Sinus Congestion, Sinus Drainage Cardiovascular: Reports: Chest Pressure, Chest Tightness, Edema - Left lower extremity, Light Headedness. Denies: Syncope Respiratory: Reports: Shortness of breath upon exertion. Denies: Cough, Shortness of breath at rest, Sputum production Gastrointestinal: Reports: Diarrhea - Chronic. Denies: Abdominal Pain, Nausea, Vomiting Genitourinary: Denies: Dysuria Musculoskeletal: Denies: Joint Pain, Joint Tenderness Skin: Denies: Rash, Wounds Neurological: Denies: Numbness, Tingling, Focal weakness Psychiatric: Reports: Anxiety, Depression Hematologic/ Lymphatic: Denies: Easy Bruising, Easy Bleeding VTE Information - Inpt Only VTE Present on Admission: No VTE Mechan Device Prophylaxis: None VTE Pharm Prophylaxis ordered?: Yes - Physical Exam General: Alert, Oriented x3, Cooperative, No apparent distress HEENT: Atraumatic, PERRLA, EOMI, Normocephalic Oral: Dry Mucosa Neck: Supple, No JVD, Negative Carotid Bruits Lungs: Clear to auscultation, Normal air movement Cardiovascular: Regular rate, Regular Rhythm, Normal S1, Normal S2, No murmurs Abdomen: Bowel Sounds Present, Soft, Non Tender, Non-Distended Extremities: No clubbing, No cyanosis, Capillary Refill Less than 3 Seconds, Edema - Left lower extremity nonpitting Skin: No rashes, No breakdown Musculoskeletal: No Tenderness to Palpation of Joints or Extremities Neurological: Cranial nerves II-XII grossly intact, Neuro grossly intact Psych/Mental Status: Normal Affect, Appropriate Vital Signs Temp Pulse Resp BP Pulse Ox 98.2 F 69 18 129/78 H 99 11/23/17 13:50 11/23/17 13:50 11/23/17 13:50 11/23/17 13:50 11/23/17 14:16 Oxygen Delivery Method Room Air Weight: 176 lb 2.389 oz Body Mass Index (BMI) 30.2 Finger Stick Blood Glucose 93 Laboratory Tests Past 24 Hrs 11/23/17 11/23/17 14:00 14:00 WBC 5.0 RBC 4.00 L Hgb 12.1 Hct 36.1 L MCV 90.3 MCH 30.3 MCHC 33.5 RDW 13.5 RDW Differential 44.1 H Plt Count 251 MPV 9.2 Immature Gran % (Auto) 0.000 Neut % (Auto) 49.5 Lymph % (Auto) 39.3 [place] % (Auto) 9.4 Eos % (Auto) 1.0 Baso % (Auto) 0.8 Absolute Neuts (auto) 2.5 Absolute Lymphs (auto) 1.97 Total Counted Not Reportable Sodium 142 Potassium 4.0 Chloride 110 H Carbon Dioxide 22.0 Anion Gap 10 BUN 12 Creatinine 0.95 Estim Creat Clear Calc 46.90 Est GFR (MDRD) Af Amer 75 Est GFR (MDRD) Non-Af 62 BUN/Creatinine Ratio 12.6 Glucose 104 Calcium 9.0 Troponin I < 0.015 Assessment/Plan All Active Problems (Last Updated 10/27/17 @ 10:59 by KURT Aguilar) Chest pain (Acute) 1. Chest pain-troponin negative x1. Trend enzymes. Dr. Ewing contacted from ER for cardiology consult. Hold home isosorbide regimen. Decrease losartan regimen to 12.5 mg daily. 2. Dizziness/lightheadedness suspected secondary to orthostatic hypotension- Patient unable to complete orthostatic vitals in ER due to dizziness. Reattempt orthostatic vitals after hydration. Continue IV fluids. Hold home isosorbide regimen. Decrease losartan regimen to 12.5 mg daily. Repeat orthos in morning. 3. Generalized weakness- ongoing. PT/OT eval. 4. CAD s/p stent to RCA 10/12/17-continue aspirin, Plavix, gemfibrozil, isosorbide , losartan. 5. Takotsubo cardiomyopathy-no evidence of acute CHF. Patient had echocardiogram August 2017 which showed an EF of 55%. 6. Hypertension-stable, continue home isosorbide, losartan regimen. 7. Hyperlipidemia-allergy to statins. Continue gemfibrozil. 8. IBS/constipation-continue home medication regimen. 9. GERD-continue PPI. 10. Depression/anxiety-continue home Celexa regimen. DVT prophylaxis- This patient was seen by MARISELA Galvan under the supervision of Dr. Pradhan. <LorneGómez - Last Filed: 11/23/17 18:10> History of Present Illness Seen and examined in ER. Patient came to ER when she got chest pain, dizziness lightheadedness while she was on exercise bike in cardiac rehab today. She has dizziness, near fall and had frequent falls at home. Her diuretic was discontinued. Her chest pain is resolved. [] Past Medical History Medical History: Medical History (Last Updated 10/27/17 @ 10:59 by KURT Aguilar) Arteriosclerotic heart disease (ASHD) (Chronic) I25.10 Stent RCA Sinus node dysfunction (Chronic) I49.5 Chest pain (Acute) R07.9 Takotsubo cardiomyopathy (Chronic) I51.81 Depression (Chronic) F32.9 GERD (gastroesophageal reflux disease) (Chronic) K21.9 Irritable bowel syndrome (Chronic) K58.9 Allergies atorvastatin [From Lipitor] Allergy (Verified 10/11/17 17:20) Swelling Penicillins Allergy (Verified 10/11/17 17:20) Anaphylaxis rosuvastatin [From Crestor] Allergy (Verified 10/11/17 17:20) Swelling Surgical History: Surgical History (Last Reviewed 09/16/17 @ 13:18 by Radha Warren) History of cholecystectomy Z90.49 History of hernia surgery Z98.890, Z87.19 History of hysterectomy Z90.710 History of oophorectomy History of sinus surgery Z98.890 Hx of appendectomy Z90.49 - *Family History Maternal Family History: Family History (Last Reviewed 11/23/17 @ 15:38 by MARISELA Galvan) Grandmother Myocardial infarction Grandmother Myocardial infarction Paternal Family History: Family History (Last Reviewed 11/23/17 @ 15:38 by MARISELA Galvan) Grandmother Myocardial infarction Grandmother Myocardial infarction - Physical Exam General: Alert, Oriented x3, Cooperative HEENT: Atraumatic, PERRLA, EOMI, Normocephalic Neck: Supple, No JVD, Negative Carotid Bruits Lungs: Clear to auscultation, Normal air movement Cardiovascular: Regular rate, Regular Rhythm, Normal S1, Normal S2, No murmurs Abdomen: Bowel Sounds Present, Soft, Non Tender Extremities: Capillary Refill Less than 3 Seconds, Edema Skin: No rashes, No breakdown Musculoskeletal: No Tenderness to Palpation of Joints or Extremities, Arthritic Changes Neurological: Cranial nerves II-XII grossly intact Psych/Mental Status: Normal Affect, Appropriate Vital Signs Temp Pulse Resp BP Pulse Ox 98 F 58 L 16 127/64 H 99 11/23/17 17:29 11/23/17 17:29 11/23/17 17:29 11/23/17 17:29 11/23/17 17:29 Oxygen Delivery Method Room Air Weight: 162 lb 14.746 oz Body Mass Index (BMI) 27.5 Assessment/Plan This patient was seen in conjunction with CARPENTERSDahiana. I have independently interviewed and examined the patient and reviewed pertinent history, examination findings, laboratory and plan of management. I have reviewed the note and agree with the documented findings with the few additional points. In brief, patient is admitted for near syncope most likely secondary to orthostatic hypotension. As mentioned above, she is not able to complete orthostatic use of dizziness. She was given IV fluid normal saline bolus. ER physician Dr. Pham discussed with Dr. Ewing and advised to hold isosorbide mononitrate. Decrease losartan. She had cardiac cath in October 12, 2017 and found single-vessel coronary artery disease of proximal RCA for which she had a stent. Mild decreased left ventricle systolic function with EF 55%. Mild global hypokinesis. I have discussed my assessment with Dahiana BECKHAM and orders have been reviewed. Code Visit OBSV E&M: 46774 Initial observation care L3
[2017-11-23] MEDS: 0.9% Normal Saline 1,000 ML 999 ML IV (15:48)
--- NOTE | 2017-11-23 16:08 | ED.VISSUMM ---
- ER Visit Summary Date of Service: 11/23/17 Chief Complaint: Chest pain low blood pressure History of Present Illness: The patient is a 72 F who is at cardiac rehab today on the exercise bike when she developed chest pain and was pale and sweaty her blood pressure went to the 80s and they brought her to the emergency department. Patient had an RCA stent placed at the beginning of October. She has had similar like symptoms going back for months but is been more pronounced since that time. Asked her what has changed during that time and she states that she has been put on isosorbide in addition to her losartan. Patient notes another time particular Tuesday medially after cardiac rehab when she was at [facility] and had a near syncopal episode. She states that she has decreased her activity because whenever she stands she feels globally weak. Physical Examination: Afebrile vital signs are stable Gen: Well-nourished well-developed Head: Normocephalic atraumatic Eyes: Perrl EOMI ENT: TMs clear no rhinorrhea moist mucous membranes Neck: Supple no lymphadenopathy no JVD nontender CVS: Regular rate rhythm no murmurs normal S1-S2 Respiratory: No distress clear to auscultation bilaterally chest nontender Abdomen: Soft nontender nondistended normal bowel sounds no masses Back: Nontender Extremity: Nontender no edema Skin: Normal color no rash Neuro: alert orientated ?3 CN II-XII intact normal strength sensation reflexes cerebellar Psych: Normal affect normal mood Test Results: EKG shows a sinus rhythm at a rate of 71 that appears unchanged from her last EKG dated October 13, 2017. Her blood work is negative including troponin. Emergency Department Course and Treatment: Patient was unable to tolerate orthostatics. I spoke with Dr. Ewing like to give the patient a fluid bolus challenge and see how she does. If she is doing okay we will stop her isosorbide. We will also cut her losartan to 12.5 mg a day. Impression: 1. Orthostatic hypotension 2. Chest pain This note was generated with ResiModel dictation software. It may contain incorrect words, spelling, and punctuation that were not noted in review of the chart prior to signing ED Disposition - Plan for ED Patient: Chief Complaint: Chest Pain Instructions: ED Hypotension Orthostatic Prescriptions: Losartan Potassium 12.5 mg PO DAILY #30 tab Referrals: Edis Ewing MD [STAFF PHYSICIAN] - (call to arrange follow up) Additional Instructions: Discontinue your isosorbide Change losartan to 12.5 mg a day
--- NOTE | 2017-11-23 16:40 | ED.RN ---
DR. WHITE AWARE PT DID NOT TOLERATE AMBULATION.
--- NOTE | 2017-11-23 16:55 | NURSING ---
DR DAREN WHITE
--- NOTE | 2017-11-23 17:08 | NURSING ---
114 [OBS CAD WITH DIZZINESS DAREN
--- NOTE | 2017-11-23 17:26 | EKG12_ITS ---
Test Reason : ADMIT CP EKG Blood Pressure : / mmHG Vent. Rate : 059 BPM Atrial Rate : 059 BPM P-R Int : 162 ms QRS Dur : 096 ms QT Int : 478 ms P-R-T Axes : 054 001 011 degrees QTc Int : 473 ms Sinus bradycardia Nonspecific ST and T wave abnormality Prolonged QT Abnormal ECG When compared with ECG of 23-NOV-2017 13:52, MANUAL COMPARISON REQUIRED, DATA IS UNCONFIRMED Confirmed by LLUVIA SAUER, AIRAM ([id number]), photograph editor CAROL PAZ ([id number]) on 11/30/2017 9:35:54 AM Referred By: Gómez Pradhan Confirmed By:AIRAM TEIXEIRA MD
--- NOTE | 2017-11-23 17:37 | VDLE_ITS ---
Reason For Study: LLE SWELLING Procedure LEFT Exam performed portable in patient room. GSV is normal. The exam was diagnostic. CFV is compressible, spontaneous, phasic, A preliminary report was called and/or faxed competent, and demonstrates normal to PCU. augmentation. FV is compressible, spontaneous, phasic, competent and demonstrates normal augmentation. POP V is compressible, spontaneous, phasic, competent and demonstrates normal augmentation. T/P Trunk is compressible. PTV is compressible. LT PerV is compressible. Interpretation Summary Deep veins of the left lower extremity are patent and compressible segmentally. There is no evidence of left lower extremity deep vein thrombosis. Valvular competence appears intact within the proximal deep venous system on the left . The left greater saphenous vein appears patent and compressible segmentally. Ordering Physician: MARISELA Galvan Referring Physician: Anatoly Zuniga Performed By: Bel Lucas, MARCELA, RVT
[2017-11-23 19:08] LABS: BNP,B-Type NATRIURETIC PEPTIDE 50.8 pg/mL (0-100)
[2017-11-23 19:17] LABS: Thyroid Stim Hormone (TSH) 1.46 uIU/mL (0.358-3.74)
[2017-11-23] MEDS: 0.9% Normal Saline 1,000 ML 100 ML IV (20:45)
[2017-11-23] MEDS: 0.9% NaCl Peripheral Flush Adult/Peds IV (20:45)
[2017-11-23] MEDS: Acetaminophen 325 MG Tablet 650 MG PO (20:52)
[2017-11-23] MEDS: Lubiprostone 24 MCG Capsule PO (21:12)
[2017-11-23] MEDS: Polyethylene Glycol 3350 17 GM PACKET PO (21:12)
[2017-11-23] MEDS: Citalopram 40 MG TABLET PO (21:12)
[2017-11-23] MEDS: Pantoprazole Sodium 20 MG Tablet PO (21:15)
[2017-11-24] VITALS (12 sets, daily range): BP systolic 129–160; BP diastolic 50–91; PULSE 52–94; RESP 14–19; TEMP 36.5–37; O2SAT 96–100
[2017-11-24] MEDS: Ibuprofen 600 MG Tablet PO ×2 (02:06→12:08)
[2017-11-24] MEDS: 0.9% Normal Saline 1,000 ML 100 ML IV ×2 (06:32→16:11)
[2017-11-24] MEDS: Gemfibrozil 600 MG Tablet PO ×2 (06:32→16:06)
[2017-11-24] MEDS: Losartan Potassium 25 MG Tablet 12.5 MG PO (09:25)
[2017-11-24] MEDS: Clopidogrel Bisulfate 75 MG Tablet PO (09:25)
[2017-11-24] MEDS: Aspirin E.C. 81 MG Tablet PO (09:25)
[2017-11-24] MEDS: Lubiprostone 24 MCG Capsule PO ×2 (09:25→21:34)
[2017-11-24] MEDS: Polyethylene Glycol 3350 17 GM PACKET PO ×2 (09:26→21:35)
[2017-11-24] MEDS: Enoxaparin 40 MG/0.4 ML Syringe SC (09:31)
[2017-11-24] MEDS: Pantoprazole Sodium 20 MG Tablet PO ×2 (09:32→21:37)
--- NOTE | 2017-11-24 09:48 | PCM.PN.HOSP ---
<Erik Castellanos - Last Filed: 11/24/17 13:41> Vitals/I&O's: Vital Signs Temp Pulse Resp BP Pulse Ox 97.7 F L 76 14 134/72 H 100 11/24/17 09:30 11/24/17 11:00 11/24/17 09:30 11/24/17 09:30 11/24/17 09:30 Oxygen Delivery Method Room Air Weight: 162 lb 14.746 oz Body Mass Index (BMI) 27.5 Orthostatic Vital Signs Start: 11/24/17 03:59 Freq: q24h Status: Active Protocol: Activity Type Activity Date Activity User E-Sign Co-Sign Detail Recorded Client Recorded Date Recorded By Document 11/24/17 03:59 [facility] [id number] 11/24/17 04:08 [facility] 11/24/17 03:59 Orthostatic Vitals Standing -Blood Pressure (90/60-120/80) 129/82 H -Extremity Use Right Arm -Pulse Rate (60-100) 64 Sitting -Blood Pressure (90/60-120/80) 140/50 H -Extremity Use Right Arm -Pulse Rate (60-100) 65 Lying -Blood Pressure (90/60-120/80) 142/76 H -Extremity Use Right Arm -Pulse Rate (60-100) 58 L Intake and Output for Last 24 Hours 11/22/17 11/23/17 11/24/17 23:59 23:59 23:59 Intake Total 589 / 589 1357 / 1357 Balance 589 / 589 1357 / 1357 Laboratory Results 11/23/17 18:18: B-Natriuretic Peptide 50.8 11/23/17 18:18: Troponin I < 0.015 11/23/17 18:18: TSH 1.46 11/23/17 20:28: Troponin I < 0.015 Current Medications Acetaminophen (Tylenol) 650 mg PO Q6H PRN PRN PRN Reason: MILD PAIN (-05/14) Last Admin: 11/23/17 20:52 Dose: 650 mg Aspirin (Ecotrin) 81 mg PO DAILY@0800 [facility] Last Admin: 11/24/17 09:25 Dose: 81 mg Citalopram Hydrobromide (Celexa) 40 mg PO QHS [facility] Last Admin: 11/23/17 21:12 Dose: 40 mg Clopidogrel Bisulfate (Plavix) 75 mg PO DAILY [facility] Last Admin: 11/24/17 09:25 Dose: 75 mg Gemfibrozil (Lopid) 600 mg PO BIDAC [facility] Last Admin: 11/24/17 06:32 Dose: 600 mg Sodium Chloride () 1,000 mls @ 100 mls/hr IV .Q10H [facility] Last Admin: 11/24/17 06:32 Dose: 100 mls/hr Ibuprofen (Motrin) 600 mg PO Q6H PRN PRN PRN Reason: HEADACHE Last Admin: 11/24/17 12:08 Dose: 600 mg Losartan Potassium (Cozaar) 12.5 mg PO DAILY [facility] Last Admin: 11/24/17 09:25 Dose: 12.5 mg Lubiprostone (Amitiza) 24 mcg PO BID [facility] Last Admin: 11/24/17 09:25 Dose: 24 mcg Nitroglycerin (Nitrostat) 0.4 mg SUBLINGUAL Q5M PRN PRN Reason: chest pain Nutritional Formula (Lactose Free) (Ensure Enlive) 120 ml PO 4X/DAY [facility] Last Admin: 11/24/17 09:25 Dose: 120 ml Pantoprazole Sodium (Protonix) 20 mg PO BID [facility] Last Admin: 11/24/17 09:32 Dose: 20 mg Polyethylene Glycol (Miralax) 17 gm PO BID [facility] Last Admin: 11/24/17 09:26 Dose: 17 gm Sodium Chloride () 5 - 30 ml IV UD PRN PRN Reason: SALINE FLUSH Last Admin: 11/23/17 20:45 Dose: 5 ml Assessment/Plan All Active Problems (Last Updated 10/27/17 @ 10:59 by KURT Aguilar) Chest pain (Acute) PA addendum: Subjective: Patient continues to have intermittent lightheadedness. She denies overt spinning sensation. She continues to have this happen episodically when she stands up or is ambulating. She feels less at rest. She does continue to have chest heaviness as well even at rest, with some shortness of breath. No palpitations. No lower extremity edema. Objective: Vital signs significant for orthostatic hypotension, otherwise significant for mild sinus bradycardia. EKG reviewed, mild sinus bradycardia no block appreciated. Labs unremarkable with negative troponin ?3, negative TSH, negative BNP General: Resting comfortably NAD Psych: A/Ox3 normal affect HEENT: PEARRLA AT NC Neck: Supple NT CV: RRR no m/t/r/g/h Resp: CTA Abd: [id number] Soft NT no guarding or rigidity Ext: DP2+= no edema Skin: W/D normal turgor Lymph/Heme: No active bleeding or adenopathy Neuro: CN2-12 intact A/P: 1. Lightheadedness on standing suspect secondary to orthostatic hypotension. + orthos. imdur stopped at admission, losartan decreased. 2. Chest pain with history of CAD and recent stents-Dr. Ewing following. Stress test. Trop neg x 3. History of tach takotsubo cardiomyopathy. Asa, plavix, losartan, imdur DC'd. No BB with hx bradycardia. 3. GERD - protonix 4. IBS - amitiza 5. Anxiety - celexa DVT ppx: SCDs DC planning: PTOT This patient was seen by Erik Castellanos PA-C under the supervision of Doctor Aliyah. <Delmy Ly - Last Filed: 11/24/17 16:32> Subjective: Patient was seen and examined. Complains of light-headedness. Vitals/I&O's: Vital Signs Temp Pulse Resp BP Pulse Ox 97.7 F L 53 L 14 134/72 H 100 11/24/17 09:30 11/24/17 09:30 11/24/17 09:30 11/24/17 09:30 11/24/17 09:30 Oxygen Delivery Method Room Air Weight: 73.9 kg Body Mass Index (BMI) 27.5 Orthostatic Vital Signs Start: 11/24/17 03:59 Freq: q24h Status: Active Protocol: Activity Type Activity Date Activity User E-Sign Co-Sign Detail Recorded Client Recorded Date Recorded By Document 11/24/17 03:59 [facility] [id number] 11/24/17 04:08 [facility] 11/24/17 03:59 Orthostatic Vitals Standing -Blood Pressure (90/60-120/80 mm Hg) 129/82 H -Extremity Use Right Arm -Pulse Rate (60-100 beats/min) 64 Sitting -Blood Pressure (90/60-120/80 mm Hg) 140/50 H -Extremity Use Right Arm -Pulse Rate (60-100 beats/min) 65 Lying -Blood Pressure (90/60-120/80 mm Hg) 142/76 H -Extremity Use Right Arm -Pulse Rate (60-100 beats/min) 58 L Intake and Output for Last 24 Hours 11/22/17 11/23/17 11/24/17 23:59 23:59 23:59 Intake Total 589 / 589 633 / 633 Balance 589 / 589 633 / 633 General: Alert, Oriented x3, Cooperative, No apparent distress HEENT: Atraumatic, PERRLA, EOMI, Normocephalic Oral: Moist Mucosa Neck: Supple, No JVD, Negative Carotid Bruits Lungs: Clear to auscultation, Normal air movement Cardiovascular: Regular rate, Regular Rhythm, Normal S1, Normal S2, No murmurs Abdomen: Bowel Sounds Present, Soft, Non Tender, Non-Distended, No Hepato-splenomegaly Extremities: No edema Skin: No rashes, No breakdown Musculoskeletal: No Tenderness to Palpation of Joints or Extremities Neurological: Cranial nerves II-XII grossly intact Psych/Mental Status: Normal Affect, Appropriate Laboratory Results 11/23/17 18:18: B-Natriuretic Peptide 50.8 11/23/17 18:18: Troponin I < 0.015 11/23/17 18:18: TSH 1.46 11/23/17 20:28: Troponin I < 0.015 Current Medications Acetaminophen (Tylenol) 650 mg PO Q6H PRN PRN PRN Reason: MILD PAIN (1-310) Last Admin: 11/23/17 20:52 Dose: 650 mg Aspirin (Ecotrin) 81 mg PO DAILY@0800 [facility] Last Admin: 11/24/17 09:25 Dose: 81 mg Citalopram Hydrobromide (Celexa) 40 mg PO QHS [facility] Last Admin: 11/23/17 21:12 Dose: 40 mg Clopidogrel Bisulfate (Plavix) 75 mg PO DAILY [facility] Last Admin: 11/24/17 09:25 Dose: 75 mg Enoxaparin Sodium (Lovenox) 40 mg SC DAILY [facility] Last Admin: 11/24/17 09:31 Dose: 40 mg Gemfibrozil (Lopid) 600 mg PO BIDAC [facility] Last Admin: 11/24/17 06:32 Dose: 600 mg Sodium Chloride () 1,000 mls @ 100 mls/hr IV .Q10H [facility] Last Admin: 11/24/17 06:32 Dose: 100 mls/hr Ibuprofen (Motrin) 600 mg PO Q6H PRN PRN PRN Reason: HEADACHE Last Admin: 11/24/17 02:06 Dose: 600 mg Losartan Potassium (Cozaar) 12.5 mg PO DAILY [facility] Last Admin: 11/24/17 09:25 Dose: 12.5 mg Lubiprostone (Amitiza) 24 mcg PO BID [facility] Last Admin: 11/24/17 09:25 Dose: 24 mcg Nitroglycerin (Nitrostat) 0.4 mg SUBLINGUAL Q5M PRN PRN Reason: chest pain Nutritional Formula (Lactose Free) (Ensure Enlive) 120 ml PO 4X/DAY [facility] Last Admin: 11/24/17 09:25 Dose: 120 ml Pantoprazole Sodium (Protonix) 20 mg PO BID [facility] Last Admin: 11/24/17 09:32 Dose: 20 mg Polyethylene Glycol (Miralax) 17 gm PO BID [facility] Last Admin: 11/24/17 09:26 Dose: 17 gm Sodium Chloride () 5 - 30 ml IV UD PRN PRN Reason: SALINE FLUSH Last Admin: 11/23/17 20:45 Dose: 5 ml Medical Necessity - Tobacco Use Smoking Status: Never smoker Assessment/Plan Please refer to the above history, physical exam and assessment and plan as documented by KURT Menard. She had a stress test today Cardiology consulted, noted the patient remains bradycardic We will continue to monitor patient in follow-up on cardiology recommendations Code Visit Inpatient E&M: 41896 Subs Hosp L2
--- NOTE | 2017-11-24 10:20 | STE_ITS ---
Reason For Study: CAD, Chest Pain Stress Results Protocol: Dobutamine Stress Echo Maximum Predicted HR: 149 bpm Target HR: 127 bpm% Maximum Pre dicted HR: 91 % DurationHeart Rate Stage (mm:ss) (bpm) BPCom ment Baseline 59 126/55 Mild Chest Pain/Squeezing DSE 10 MCG 3:18 65 132/71Mild Chest Pain/Squeezing DSE 20 MCG 3:17 12 3 128/64Mild Chest Pain/Squeezing DSE 30 MCG 3:05 13 6 149/84Mild Chest Pain/Throat Pain; Moderate Dyspnea Recovery 71 150/63 Mild Chest Pain/Squeezing Stress Duration: 9:40 mm:ss Maximum Stress HR: 136 bpmM ETS: 1 Baseline Echocardiogram Findings The estimated ejection fraction is 65 %. Stress Echo Wall motion Data Resting WMIntermediate WMStress WM Resting Wall Motion Wall Motion Stress No regional wall motion No regional wall motion abnormalities noted. abnormalities noted. EKG Data Normal intervals are noted. The patient was titrated from 10 mcg to a maximun of 30 mcg of dobutamine during the stress. The maximum heart rate attained was 137 beats per minute. This was 91% of maximum predicted heart rate. During dobutamine infusion, there were no ST or T wave changes noted to suggest ischemia. No clinical angina was noted. Interpretation Summary The estimated ejection fraction is 65 %. Normal, adequate, dobutamine echocardiogram. Negative for ischemia by EKG and echocardiographic criteria. Pt had atypical baseline mild chest pain prior to test which remained throughout test. No associated wall motion abnormalities or ECG changes to correlate with chest pain. Rare PAC noted. Appropriate blood pressure response to dobutamine. Final LVEF is 75%. Test terminated due to target heart rate achieved. No complications. Ordering Physician: Edis Ewing Referring Physician: Edis Ewing Performed By: Yajaira James RDCS
--- NOTE | 2017-11-24 10:22 | PCM.CONS.C ---
Problem List (1) Arteriosclerotic heart disease (ASHD) Status: Chronic Comment: Stent RCA (2) Chest pain Status: Acute (3) Takotsubo cardiomyopathy Status: Chronic Reason for Consult Date of Consultation: 11/24/17 Reason for Consultation: Hypertension, chest pain, bradycardia, coronary artery disease, previous Takostubos CMP. History of Present Illness: The patient is a 72 year old F, patient of Dr. Forte with a history of hypertension, hypercholesterolemia, coronary disease status post angioplasty and drug-eluting stent to her proximal RCA in September 2017, normal EF around 55% with normal RVSP. The patient was attending cardiac rehab yesterday and noted lightheadedness, dizziness, and some nondescript substernal chest pain superimposed upon hypertension with blood pressure in the 80s. Patient was brought to the emergency room where she was found to be mildly hypotensive. Her Imdur was discontinued, and she was admitted for observation. She has ruled out for myocardial infarction, and her EKG shows sinus bradycardia with mild anterior ST segment depression. Her orthostatics this morning are negative however she remained bradycardic with a pulse in the high 50s to low 60s. She has been compliant with her medications. [] Past Medical History Allergies/Adverse Reactions: Allergies atorvastatin [From Lipitor] Allergy (Verified 10/11/17 17:20) Swelling Penicillins Allergy (Verified 10/11/17 17:20) Anaphylaxis rosuvastatin [From Crestor] Allergy (Verified 10/11/17 17:20) Swelling Home Medications: Ambulatory Orders Medication Instructions Recorded Citalopram Hydrobromide [Celexa] 40 mg PO QHS 12/13/16 Lubiprostone [Amitiza] 24 mcg PO BID 08/15/17 Omeprazole 20 mg PO BID 08/15/17 Polyethylene Glycol 3350 [Miralax] 17 gm PO BID 08/15/17 Aspirin E.C. [Ecotrin] 81 mg PO DAILY@0800 #30 tab 10/13/17 gemfibrozil 600 mg tablet 600 mg PO BIDAC #60 tab 10/13/17 clopidogrel 75 mg tablet 75 mg PO DAILY #30 tab 10/27/17 isosorbide mononitrate ER 30 mg 30 mg PO QAM #30 tab 10/27/17 tablet,extended release 24 hr losartan 25 mg tablet 25 mg PO DAILY #30 tab 10/27/17 nitroglycerin 0.4 mg sublingual 0.4 mg SUBLINGUAL Q5-15M PRN #25 10/27/17 tablet tab Losartan Potassium 12.5 mg PO DAILY #30 tab 11/23/17 Peppermint Oil [Ibgard] 90 mg PO DAILY 11/23/17 Past Medical History (Chronic Problems): Chronic Problems (Last Updated 10/27/17 @ 10:59 by KURT Aguilar) Arteriosclerotic heart disease (ASHD) (Chronic) Stent RCA Sinus node dysfunction (Chronic) Takotsubo cardiomyopathy (Chronic) Depression (Chronic) GERD (gastroesophageal reflux disease) (Chronic) Irritable bowel syndrome (Chronic) Surgical History: appendectomy, cholecystectomy, hysterectomy, - - Surgery for hiatal hernia, cath with stent to RCA Psychiatric History: Anxiety, Depression CLINICAL EDUCATION ASSISTANT History: No pertinent CLINICAL EDUCATION ASSISTANT history - *Family History Maternal Family History: Family History (Last Reviewed 11/23/17 @ 15:38 by MARISELA Galvan) Grandmother Myocardial infarction Grandmother Myocardial infarction History Items: No pertinent history Paternal Family History: Family History (Last Reviewed 11/23/17 @ 15:38 by MARISELA Galvan) Grandmother Myocardial infarction Grandmother Myocardial infarction History Items: No pertinent history Lives: Spouse/ Significant Other Smoking Status: Never smoker Alcohol: None Drugs: None Review of Systems - Review of Systems General: Denies: Fever, Night Sweats, Fatigue Cardiovascular: Reports: Chest Discomfort, Lightheadedness, Dizziness. Denies: Shortness of Breath, Orthopnea, PND, Peripheral Edema, Palpitations, Near Syncope, Syncope Respiratory: Denies: Cough, Sputum Production, Hemoptysis Gastrointestinal: Denies: Hematemesis, Hematochezia, Melena Genitourinary: Denies: Dysuria, Hematuria Skin: Denies: Rash Subjectve: Patient sitting in a chair, no acute distress. Objective: Vital Signs Temp Pulse Resp BP Pulse Ox 97.7 F L 53 L 14 134/72 H 100 11/24/17 09:30 11/24/17 09:30 11/24/17 09:30 11/24/17 09:30 11/24/17 09:30 Oxygen Delivery Method Room Air Weight: 162 lb 14.746 oz Body Mass Index (BMI) 27.5 Orthostatic Vital Signs Start: 11/24/17 03:59 Freq: q24h Status: Active Protocol: Activity Type Activity Date Activity User E-Sign Co-Sign Detail Recorded Client Recorded Date Recorded By Document 11/24/17 03:59 [facility] [id number] 11/24/17 04:08 [facility] 11/24/17 03:59 Orthostatic Vitals Standing -Blood Pressure (90/60-120/80) 129/82 H -Extremity Use Right Arm -Pulse Rate (60-100) 64 Sitting -Blood Pressure (90/60-120/80) 140/50 H -Extremity Use Right Arm -Pulse Rate (60-100) 65 Lying -Blood Pressure (90/60-120/80) 142/76 H -Extremity Use Right Arm -Pulse Rate (60-100) 58 L Intake and Output for Last 24 Hours 11/22/17 11/23/17 11/24/17 23:59 23:59 23:59 Intake Total 589 / 589 633 / 633 Balance 589 / 589 633 / 633 General: Awake, Alert, Oriented x 3 HEENT: PERRL, EOMI, Sclera Non Icteric Neck: Supple, Good ROM, No Lymph Node Enlargement Lungs: Clear to auscultation Cardiovascular: Regular Rhythm, Normal S1, Normal S2, No Murmurs, No Rubs, No Gallops Vascular: No Carotid Bruits, Normal Femoral Pulses, Normal Radial Pulses, Normal Dorsalis Pedal Pulse, Normal Posterior Tibial Pulses Abdomen: Bowel Sounds Present, Soft, Non Tender, No HSM, No Organomegaly Extremities: No Cyanosis, No Clubbing, No edema Neurological: No Focal Motor or Sensory Deficit 11/23/17 18:18: B-Natriuretic Peptide 50.8 11/23/17 18:18: Troponin I < 0.015 11/23/17 20:28: Troponin I < 0.015 Rhythm: EKG: ECHO: Stress Test: Cardiac Cath: PCI: CT Surgery: Holter monitor: EPS: PPM: CXR: Chest CT Scan: Assessment/Plan #1. Hypotension: The patient's blood pressure decreased at the end of exercise yesterday, and she has had some bradycardia despite being on no heart rate controlling medications. Her blood pressure is much better since IV fluid hydration, and holding her Imdur. I reviewed her catheterization which showed not objective coronary disease of her LAD and left circumflex an excellent result of her mid RCA stenting in September 2017. I recommended holding her Imdur, and performing a treadmill echocardiogram to assess her chronotropic response to exercise, blood pressure response to exercise, and evaluate her LV function particularly the inferior wall with respect to her previous stent. If this is grossly abnormal for ischemia, she will require repeat catheterization to reassess her stent. In addition if she has chronotropic incompetence, she may require a dual-chamber pacemaker going forward. Would hold on any beta-odalys therapy at this time. In addition I recommended splitting her losartan and a 12.5 mill grams p.o. twice daily to spread out her antihypertensive medications. At the patient's stress test is negative, she may be discharged home and follow-up with Dr. Heath going forward. She will continue aspirin Plavix. Her TSH is normal. 2. Thank you very much for the opportunity to participate in the cardiac care of your patient. Discussed with Dr. Ly. Consultation time took place between 10 AM and 10:30 AM. Code Visit Inpatient E&M: 30623 Init Hosp L2
[2017-11-24] MEDS: Acetaminophen 325 MG Tablet 650 MG PO ×2 (15:02→21:37)
--- NOTE | 2017-11-24 16:04 | EKG12_ITS ---
Test Reason : Blood Pressure : / mmHG Vent. Rate : 057 BPM Atrial Rate : 057 BPM P-R Int : 168 ms QRS Dur : 098 ms QT Int : 444 ms P-R-T Axes : 047 006 006 degrees QTc Int : [address] & T wave abnormality, consider anterior ischemia Abnormal ECG When compared with ECG of 23-NOV-2017 17:42, MANUAL COMPARISON REQUIRED, DATA IS UNCONFIRMED Confirmed by GARDENIA SAUER, ALEXEY ([id number]), science editor CAROL PAZ ([id number]) on 12/02/2017 2:41:17 PM Referred By: Gómez Pradhan Confirmed By:ALEXEY VARNER MD
[2017-11-24] MEDS: Citalopram 40 MG TABLET PO (21:35)
[2017-11-25] VITALS (7 sets, daily range): BP systolic 105–154; BP diastolic 58–93; PULSE 53–77; RESP 16; TEMP 36.7–37.2; O2SAT 97–98
[2017-11-25] MEDS: 0.9% Normal Saline 1,000 ML 100 ML IV (02:16)
[2017-11-25] MEDS: Acetaminophen 325 MG Tablet 650 MG PO (05:08)
[2017-11-25] MEDS: Gemfibrozil 600 MG Tablet PO (06:30)
[2017-11-25] MEDS: Polyethylene Glycol 3350 17 GM PACKET PO (09:25)
[2017-11-25] MEDS: Pantoprazole Sodium 20 MG Tablet PO (09:25)
[2017-11-25] MEDS: Clopidogrel Bisulfate 75 MG Tablet PO (09:25)
[2017-11-25] MEDS: Lubiprostone 24 MCG Capsule PO (09:25)
[2017-11-25] MEDS: Losartan Potassium 25 MG Tablet 12.5 MG PO (09:25)
[2017-11-25] MEDS: Aspirin E.C. 81 MG Tablet PO (09:25)
--- NOTE | 2017-11-25 11:23 | PCM.PN.CARD ---
Subjectve: Patient seen and examined, feels much better today after being off Imdur for 2 days. Stress echo yesterday was negative for inducible ischemia and no exertional chest pain symptoms. Orthostatics negative. Objective: Vital Signs Temp Pulse Resp BP Pulse Ox 98.1 F 60 16 134/77 H 98 11/25/17 08:15 11/25/17 11:05 11/25/17 08:15 11/25/17 10:30 11/25/17 08:15 Oxygen Delivery Method Room Air Weight: 162 lb 14.746 oz Body Mass Index (BMI) 27.5 Orthostatic Vital Signs Start: 11/24/17 03:59 Freq: Q24H Status: Active Protocol: Activity Type Activity Date Activity User E-Sign Co-Sign Detail Recorded Client Recorded Date Recorded By Document 11/25/17 10:30 [facility] [id number] 11/25/17 10:42 [facility] 11/25/17 10:30 Orthostatic Vitals Standing -Blood Pressure (90/60-120/80) 154/93 H -Extremity Use Right Arm -Pulse Rate (60-100) 77 Sitting -Blood Pressure (90/60-120/80) 142/82 H -Extremity Use Right Arm -Pulse Rate (60-100) 65 Lying -Blood Pressure (90/60-120/80) 134/77 H -Extremity Use Right Arm -Pulse Rate (60-100) 67 Intake and Output for Last 24 Hours 11/23/17 11/24/17 11/25/17 23:59 23:59 23:59 Intake Total 589 / 589 3071 / 3071 512 / 512 Balance 589 / 589 3071 / 3071 512 / 512 General: Awake, Alert, Oriented x 3 HEENT: PERRL, EOMI, Sclera Non Icteric Neck: Supple, Good ROM, No Lymph Node Enlargement Lungs: Clear to auscultation Cardiovascular: Regular Rhythm, Normal S1, Normal S2, No Murmurs, No Rubs, No Gallops Vascular: No Carotid Bruits, Normal Femoral Pulses, Normal Radial Pulses, Normal Dorsalis Pedal Pulse, Normal Posterior Tibial Pulses Abdomen: Bowel Sounds Present, Soft, Non Tender, No HSM, No Organomegaly Extremities: No Cyanosis, No Clubbing, No edema Neurological: No Focal Motor or Sensory Deficit Rhythm: EKG: ECHO: Stress Test: Stress echo negative, no ischemia noted. Cardiac Cath: PCI: CT Surgery: Holter monitor: EPS: PPM: CXR: Chest CT Scan: Medical Necessity - Tobacco Use Smoking Status: Never smoker Assessment/Plan #1. Hypotension: The patient's blood pressure decreased at the end of exercise on day of admission, and she has had some bradycardia despite being on no heart rate controlling medications. Her blood pressure is much better since IV fluid hydration, and holding her Imdur. I reviewed her catheterization which showed not objective coronary disease of her LAD and left circumflex an excellent result of her mid RCA stenting in September 2017. Patient underwent a dobutamine echocardiogram yesterday which was negative for inducible ischemia by both EKG and echocardiographic criteria. Patient feels much better today with better blood pressure after being off Imdur for 2 days. Recommend that she be discharged home and follow-up with Dr. Heath going forward. In addition I recommended splitting her losartan and a 12.5 mill grams p.o. twice daily to spread out her antihypertensive medications. At the patient's stress test is negative, she may be discharged home and follow-up with Dr. Heath going forward. She will continue aspirin Plavix. Her TSH is normal. 2. Thank you very much for the opportunity to participate in the cardiac care of your patient. Discussed with Dr. Ly. Patient may be discharged home. She may resume cardiac rehab next week. Code Visit Inpatient E&M: 58330 [facility] Hosp L2
--- NOTE | 2017-11-25 11:38 | PCM.DC ---
You will use the following diet at home:: Cardiac Your food should be the consistency of: Regular Your liquids should be the consistency of: Regular/Thin Discharge Activity: Return to Normal Activity Instructions: ED Hypotension Orthostatic Allergies/Adverse Reactions: Allergies atorvastatin [From Lipitor] Allergy (Verified 10/11/17 17:20) Swelling Penicillins Allergy (Verified 10/11/17 17:20) Anaphylaxis rosuvastatin [From Crestor] Allergy (Verified 10/11/17 17:20) Swelling Medications to take at Discharge Citalopram Hydrobromide [Celexa] 40 mg PO QHS 12/13/16 Lubiprostone [Amitiza] 24 mcg PO BID 08/15/17 Omeprazole 20 mg PO BID 08/15/17 Aspirin E.C. [Ecotrin] 81 mg PO DAILY@0800 #30 tab 10/13/17 gemfibrozil 600 mg tablet 600 mg PO BIDAC #60 tab 10/13/17 clopidogrel 75 mg tablet 75 mg PO DAILY #30 tab 10/27/17 nitroglycerin 0.4 mg sublingual tablet 0.4 mg SUBLINGUAL Q5-15M PRN #25 tab 10/27/17 Losartan Potassium 12.5 mg PO DAILY #30 tab 11/23/17 Ensure Enlive 120 ml PO 4X/DAY liquid 11/25/17 Losartan Potassium [Cozaar] 12.5 mg PO DAILY #30 tablet 11/25/17 The following prescriptions were given: Losartan Potassium 12.5 mg PO DAILY #30 tab Losartan Potassium [Cozaar] 12.5 mg PO DAILY #30 tablet Primary Care Physician: Edis Ewing MD [STAFF PHYSICIAN] - (call to arrange follow up) Please follow up with your Primary Care Physician in: 2 weeks Test Results: Test results from this visit will be discussed in further detail at your follow-up appointment, if applicable. Please Follow Up With: Gastroenterology When: 2 weeks Please Follow Up With: Andrés Heath MD When: 2 weeks Please Follow Up With: PCP When: 1-2 weeks
--- NOTE | 2017-11-25 11:43 | DCINST_ITS ---
You will use the following diet at home:: Cardiac Your food should be the consistency of: Regular Your liquids should be the consistency of: Regular/Thin Discharge Activity: Return to Normal Activity Instructions: ED Hypotension Orthostatic Allergies/Adverse Reactions: Allergies atorvastatin [From Lipitor] Allergy (Verified 10/11/17 17:20) Swelling Penicillins Allergy (Verified 10/11/17 17:20) Anaphylaxis rosuvastatin [From Crestor] Allergy (Verified 10/11/17 17:20) Swelling Medications to take at Discharge Citalopram Hydrobromide [Celexa] 40 mg PO QHS 12/13/16 Lubiprostone [Amitiza] 24 mcg PO BID 08/15/17 Omeprazole 20 mg PO BID 08/15/17 Aspirin E.C. [Ecotrin] 81 mg PO DAILY@0800 #30 tab 10/13/17 gemfibrozil 600 mg tablet 600 mg PO BIDAC #60 tab 10/13/17 clopidogrel 75 mg tablet 75 mg PO DAILY #30 tab 10/27/17 nitroglycerin 0.4 mg sublingual tablet 0.4 mg SUBLINGUAL Q5-15M PRN #25 tab Losartan Potassium 12.5 mg PO DAILY #30 tab 11/23/17 Ensure Enlive 120 ml PO 4X/DAY liquid 11/25/17 Losartan Potassium [Cozaar] 12.5 mg PO DAILY #30 tablet 11/25/17 The following prescriptions were given: Losartan Potassium 12.5 mg PO DAILY #30 tab Losartan Potassium [Cozaar] 12.5 mg PO DAILY #30 tablet Primary Care Physician: Edis Ewing MD [STAFF PHYSICIAN] - (call to arrange follow up) Please follow up with your Primary Care Physician in: 2 weeks Test Results: Test results from this visit will be discussed in further detail at your follow- up appointment, if applicable. Please Follow Up With: Gastroenterology When: 2 weeks Please Follow Up With: Andrés Heath MD When: 2 weeks Please Follow Up With: PCP When: 1-2 weeks
--- NOTE | 2017-11-25 14:29 | PCM.DC.SUM ---
<Erik Castellanos - Last Filed: 11/25/17 14:29> Discharge Date and Diagnosis Date of Admission: 11/23/17 Date of Discharge: 11/25/17 - Primary Discharge Diagnosis Orthostatic hypotension Hx CAD, hx stent, hx takotsubo cardiomyopathy GERD hx anx/depression - Secondary Discharge Diagnosis Chronic Problems (Last Updated 10/27/17 @ 10:59 by KURT Aguilar) Arteriosclerotic heart disease (ASHD) (Chronic) Stent RCA Sinus node dysfunction (Chronic) Takotsubo cardiomyopathy (Chronic) Depression (Chronic) GERD (gastroesophageal reflux disease) (Chronic) Irritable bowel syndrome (Chronic) Hospital Course and Treatment Imaging Results: Stress echo: Interpretation Summary The estimated ejection fraction is 65 %. Normal, adequate, dobutamine echocardiogram. Negative for ischemia by EKG and echocardiographic criteria. Pt had atypical baseline mild chest pain prior to test which remained throughout test. No associated wall motion abnormalities or ECG changes to correlate with chest pain. Rare PAC noted. Appropriate blood pressure response to dobutamine. Final LVEF is 75%. Test terminated due to target heart rate achieved. No complications. RAD/Chest 1 View (Portable) IMPRESSION: No acute abnormality is present. Duplex venous US LE left Interpretation Summary Deep veins of the left lower extremity are patent and compressible segmentally. There is no evidence of left lower extremity deep vein thrombosis. Valvular competence appears intact within the proximal deep venous system on the left . The left greater saphenous vein appears patent and compressible segmentally. Consults: Cardiology - Ewing Operations: None Procedures: Stress test Summary of Care Provided: Physical exam on day of discharge: General: Resting comfortably NAD Psych: A/Ox3 normal affect HEENT: PEARRLA AT NC Neck: Supple NT CV: RRR no m/t/r/g/h Resp: CTA Abd: [id number] Soft NT no guarding or rigidity Ext: DP2+= no edema Skin: W/D normal turgor Lymph/Heme: No active bleeding or adenopathy Neuro: CN2-12 intact Hospital course: The patient is a 72 year old F with past medical history of coronary artery disease with prior stent, type II, cardiomyopathy, GERD, hyperlipidemia who presented to the emergency room with chief complaint of lightheadedness worse with standing, and chest heaviness. She is found to have mild bradycardia on EKG with mild anterior ST segment depression, negative chest x-ray, negative troponin negative chest x-ray, negative ultrasound of the lower extremity, left. She was admitted to the PCU on cardiac monitoring and cardiology was consulted. Troponins were cycled and remained negative. She had no events on telemetry. She was found to have positive orthostatic vital signs which was felt to be the cause of her lightheaded sensation on standing. Her losartan was changed to 12.5 twice daily and her Imdur was stopped. Her positive orthosis became negative. She underwent a stress echo the following day which was unremarkable. TSH and beta natruretic peptide were negative. She was discharged home in stable condition with the above changes to her medications. She was advised to follow-up with her ortho assistant and PCP. She also has a history of IBS and had been complaining of loose stools lately. We advised her to cut back on her laxatives at home and follow-up with her manufacturing baker. This patient was seen by Erik Castellanos PA-C under the supervision of Doctor Aliyah. [] Discharge Diet: Low fat/ Low Cholesterol, 2000 mg Sodium Diet Discharge Activity: Return to Normal Activity Home Medications: Medications to take at Discharge Citalopram Hydrobromide [Celexa] 40 mg PO QHS 12/13/16 Lubiprostone [Amitiza] 24 mcg PO BID 08/15/17 Omeprazole 20 mg PO BID 08/15/17 Aspirin E.C. [Ecotrin] 81 mg PO DAILY@0800 #30 tab 10/13/17 gemfibrozil 600 mg tablet 600 mg PO BIDAC #60 tab 10/13/17 clopidogrel 75 mg tablet 75 mg PO DAILY #30 tab 10/27/17 nitroglycerin 0.4 mg sublingual tablet 0.4 mg SUBLINGUAL Q5-15M PRN #25 tab 10/27/17 Ensure Enlive 120 ml PO 4X/DAY liquid 11/25/17 Losartan Potassium 12.5 mg PO BID #30 tab 11/25/17 Following Prescrptions Were Given to Patient: Losartan Potassium 12.5 mg PO BID #30 tab Primary Care Physician: Edis Ewing MD [STAFF PHYSICIAN] - (call to arrange follow up) Please follow up with your Primary Care Physician in: 2 weeks Please Follow Up With: Gastroenterology When: 2 weeks Please Follow Up With: Andrés Heath MD When: 2 weeks Please Follow Up With: PCP When: 1-2 weeks Patient Instructions: ED Hypotension Orthostatic Medical Necessity - Tobacco Use Smoking Status: Never smoker Meaningful Use Info Meaningful Use Diagnoses (Choose all that apply): None applicable <Delmy Ly - Last Filed: 11/27/17 17:45> Discharge Date and Diagnosis - Secondary Discharge Diagnosis Chronic Problems (Last Updated 10/27/17 @ 10:59 by KURT Aguilar) Arteriosclerotic heart disease (ASHD) (Chronic) Stent RCA Sinus node dysfunction (Chronic) Takotsubo cardiomyopathy (Chronic) Depression (Chronic) GERD (gastroesophageal reflux disease) (Chronic) Irritable bowel syndrome (Chronic) Hospital Course and Treatment Summary of Care Provided: The patient is a 72 year old F with past medical history of CAD status post recent stents done in October 2017, type II DM, hyperlipidemia who had come in with complaints of dizziness and found to be bradycardic with mild EKG changes. Troponins were negative. Patient was seen by cardiology, underwent stress test that was negative. Her orthostatic vitals were positive and she received some IV fluids with improvement. Adjustments were made to her medications by cardiology. Patient was recommended to follow up with her cardiac rehab. She had complained of chronic diarrhea and was advised to follow-up with her manufacturing baker and hold back on some of her stool softeners. Code Visit Inpatient E&M: 46065 Disch Hosp
--- NOTE | 2017-11-25 14:48 | DS.PCM_ITS ---
<Erik Castellanos - Last Filed: 11/25/17 14:29> Discharge Date and Diagnosis Date of Admission: 11/23/17 Date of Discharge: 11/25/17 - Primary Discharge Diagnosis Orthostatic hypotension Hx CAD, hx stent, hx takotsubo cardiomyopathy GERD hx anx/depression - Secondary Discharge Diagnosis Chronic Problems (Last Updated 10/27/17 @ 10:59 by KURT Aguilar) Arteriosclerotic heart disease (ASHD) (Chronic) Stent RCA Sinus node dysfunction (Chronic) Takotsubo cardiomyopathy (Chronic) Depression (Chronic) GERD (gastroesophageal reflux disease) (Chronic) Irritable bowel syndrome (Chronic) Hospital Course and Treatment Imaging Results: Stress echo: Interpretation Summary The estimated ejection fraction is 65 %. Normal, adequate, dobutamine echocardiogram. Negative for ischemia by EKG and echocardiographic criteria. Pt had atypical baseline mild chest pain prior to test which remained throughout test. No associated wall motion abnormalities or ECG changes to correlate with chest pain. Rare PAC noted. Appropriate blood pressure response to dobutamine. Final LVEF is 75%. Test terminated due to target heart rate achieved. No complications. RAD/Chest 1 View (Portable) IMPRESSION: No acute abnormality is present. Duplex venous US LE left Interpretation Summary Deep veins of the left lower extremity are patent and compressible segmentally. There is no evidence of left lower extremity deep vein thrombosis. Valvular competence appears intact within the proximal deep venous system on the left . The left greater saphenous vein appears patent and compressible segmentally. Consults: Cardiology - Ewing Operations: None Procedures: Stress test Summary of Care Provided: Physical exam on day of discharge: General: Resting comfortably NAD Psych: A/Ox3 normal affect HEENT: PEARRLA AT NC Neck: Supple NT CV: RRR no m/t/r/g/h Resp: CTA Abd: [id number] Soft NT no guarding or rigidity Ext: DP2+= no edema Skin: W/D normal turgor Lymph/Heme: No active bleeding or adenopathy Neuro: CN2-12 intact Hospital course: The patient is a 72 year old F with past medical history of coronary artery disease with prior stent, type II, cardiomyopathy, GERD, hyperlipidemia who presented to the emergency room with chief complaint of lightheadedness worse with standing, and chest heaviness. She is found to have mild bradycardia on EKG with mild anterior ST segment depression, negative chest x-ray, negative troponin negative chest x-ray, negative ultrasound of the lower extremity, left. She was admitted to the PCU on cardiac monitoring and cardiology was consulted. Troponins were cycled and remained negative. She had no events on telemetry. She was found to have positive orthostatic vital signs which was felt to be the cause of her lightheaded sensation on standing. Her losartan was changed to 12.5 twice daily and her Imdur was stopped. Her positive orthosis became negative. She underwent a stress echo the following day which was unremarkable. TSH and beta natruretic peptide were negative. She was discharged home in stable condition with the above changes to her medications. She was advised to follow-up with her cylindrical mixer and PCP. She also has a history of IBS and had been complaining of loose stools lately. We advised her to cut back on her laxatives at home and follow-up with her plate printer. This patient was seen by Erik Castellanos PA-C under the supervision of Doctor Aliyah. [] Discharge Diet: Low fat/ Low Cholesterol, 2000 mg Sodium Diet Discharge Activity: Return to Normal Activity Home Medications: Medications to take at Discharge Citalopram Hydrobromide [Celexa] 40 mg PO QHS 12/13/16 Lubiprostone [Amitiza] 24 mcg PO BID 08/15/17 Omeprazole 20 mg PO BID 08/15/17 Aspirin E.C. [Ecotrin] 81 mg PO DAILY@0800 #30 tab 10/13/17 gemfibrozil 600 mg tablet 600 mg PO BIDAC #60 tab 10/13/17 clopidogrel 75 mg tablet 75 mg PO DAILY #30 tab 10/27/17 nitroglycerin 0.4 mg sublingual tablet 0.4 mg SUBLINGUAL Q5-15M PRN #25 tab Ensure Enlive 120 ml PO 4X/DAY liquid 11/25/17 Losartan Potassium 12.5 mg PO BID #30 tab 11/25/17 Following Prescrptions Were Given to Patient: Losartan Potassium 12.5 mg PO BID #30 tab Primary Care Physician: Edis Ewing MD [STAFF PHYSICIAN] - (call to arrange follow up) Please follow up with your Primary Care Physician in: 2 weeks Please Follow Up With: Gastroenterology When: 2 weeks Please Follow Up With: Andrés Heath MD When: 2 weeks Please Follow Up With: PCP When: 1-2 weeks Patient Instructions: ED Hypotension Orthostatic Medical Necessity - Tobacco Use Smoking Status: Never smoker Meaningful Use Info Meaningful Use Diagnoses (Choose all that apply): None applicable <Delmy Ly - Last Filed: 11/27/17 17:45> Discharge Date and Diagnosis - Secondary Discharge Diagnosis Chronic Problems (Last Updated 10/27/17 @ 10:59 by KURT Aguilar) Arteriosclerotic heart disease (ASHD) (Chronic) Stent RCA Sinus node dysfunction (Chronic) Takotsubo cardiomyopathy (Chronic) Depression (Chronic) GERD (gastroesophageal reflux disease) (Chronic) Irritable bowel syndrome (Chronic) Hospital Course and Treatment Summary of Care Provided: The patient is a 72 year old F with past medical history of CAD status post recent stents done in October 2017, type II DM, hyperlipidemia who had come in with complaints of dizziness and found to be bradycardic with mild EKG changes. Troponins were negative. Patient was seen by cardiology, underwent stress test that was negative. Her orthostatic vitals were positive and she received some IV fluids with improvement. Adjustments were made to her medications by cardiology. Patient was recommended to follow up with her cardiac rehab. She had complained of chronic diarrhea and was advised to follow-up with her plate printer and hold back on some of her stool softeners. Code Visit Inpatient E&M: 47917 Disch Hosp
== END 2017-11-25 11:40 | disposition home or self-care (01) ==
LOC: ED 16:39 → PCU 17:14
PROVIDERS: Nurse Practitioner Family; Admitting Provider Internal Medicine; Emergency Provider Emergency Medicine; Family Provider Family Medicine; PCP Family Medicine; Visit Provider Internal Medicine
DX: I95.1 Orthostatic hypotension (principal); I25.10 Atherosclerotic heart disease of native coronary artery without angina pectoris; Z95.5 Presence of coronary angioplasty implant and graft; K21.9 Gastro-esophageal reflux disease without esophagitis; F41.9 Anxiety disorder, unspecified; F32.9 Major depressive disorder, single episode, unspecified; Z79.899 Other long term (current) drug therapy; Z79.82 Long term (current) use of aspirin; Z79.02 Long term (current) use of antithrombotics/antiplatelets; E11.9 Type 2 diabetes mellitus without complications; E78.5 Hyperlipidemia, unspecified; K58.1 Irritable bowel syndrome with constipation; R94.31 Abnormal electrocardiogram [ECG] [EKG]; R00.1 Bradycardia, unspecified; R06.02 Shortness of breath
CPT/HCPCS: 36415; 71045; 80048; 83880; 84443; 84484; 85025; 93005; 93017; 93350; 93798; 93971; 96360; 96361; 96372; 97162; 97166; 97530; 97802; 99218; 99283; J7030; A4216; G0378

== ENCOUNTER → 2017-12-08 13:13 | Outpatient (CLI) | payer MEDICARE, OTHER, SELFPAY ==
[2017-10-12 14:26] VITALS: BMI 27.3
[2017-12-08 14:19] LABS: AST(SGOT) 9 U/L (15-37); Alanine Aminotransfer ALT/SGPT 12 U/L (13-56); Albumin, Serum 3.6 g/dL (3.2-5.0); Alkaline Phosphatase 68 U/L (45-117); Bilirubin, Direct 0.12 mg/dL (0.00-0.30); Cholesterol 165 mg/dL (200); Globulin 3.8 g/dL (2.2-4.2); High Density Lipoprotein 50 mg/dL; Protein, Total 7.4 g/dL (6.4-8.2); Triglycerides 110 mg/dL; Very Low Density Lipoprotein 22 mg/dL (5-40)
== END ==
PROVIDERS: Family Provider Family Medicine; PCP Family Medicine; Referring Provider Physician Assistant Medical; Visit Provider Physician Assistant Medical
DX: I25.10 Atherosclerotic heart disease of native coronary artery without angina pectoris (principal); I51.81 Takotsubo syndrome
CPT/HCPCS: 36415; 80061; 80076

== ENCOUNTER 2017-12-14 13:00 | Outpatient (RCR) | payer MEDICARE, OTHER, SELFPAY ==
[2017-10-12 14:26] VITALS: BMI 27.3
--- NOTE | 2017-12-12 08:14 | PCM.CR.ITP ---
General Information - General Information Admitting Diagnosis: PCI with coronary artery stenting - Education/Goals Cardiac Rehabilitation Goals: 1. Maintain the individual as the primary focus of care. 2. To improve the patient's quality of life. 3. Identification of cardiac risk factors and provide cardiac risk factor management. 4. Enhance the psychosocial status of the patient. 5. Reconditioning enough to allow the patient to resume customary activities. 6. Control symptoms of cardiac disease Scale for measuring improvement of personal goals: Enter appropriate number in Comments. 2 = Unchanged. 3 = Slightly Better. 4 = Moderate Improvement. 5 = Met my Goal Exercise - 30-day Assessment - Visit Date of Eval: 12/12/17 Session #:: 6 - Stages of Change Stages of Change:: Action - Exercise Prescription Mode:: Treadmill, Biodyne, NuStep Frequency (x/week): 3 Duration:: 30 METs - Progression: 0.5-1 MET as tolerated: 2.5 Target Heart Rate:: 112-120 Max HR 100 - Hypertension Resting Blood Pressure:: 118/70 Peak Exercise Blood Pressure:: 124/68 - Intervention Home Exercise/Activity Goal:: Moderate Exercise 30 min/day x 5 days/wk - Education Goals:: Warm-up, RPE JUNO Scale, S/S, Safe Exercise, Self-Monitoring - Exercise Program Goals Exercise Program Goals: Aerobic Activity >30 min, B/P <130/80 Nutrition - 30-Day Assessment - Program Goals Nutrition Program Goals: LDL <70. Total Cholesterol <200. HDL >45. Triglycerides <150. HgbA1C <7%. BMI <25 - Visit Date of Eval: 12/12/17 - Stages of Change Stages of Change:: Action - Lipids Has the patient seen the dietitian?: No - Weight Management Weight:: 72.575 kg - Intervention Referral to dietitian:: No Referral to Diabetic Clinic:: No Will attend diet classes:: Yes - Education Attended class for:: Signs & symptoms of hypoglycemia, Signs & symptoms of hyperglycemia, Relate diabetes to coronary artery disease, Healthy eating Tobacco - 30-Day Assessment - Program Goals Tobacco Program Goals: Complete smoking cessation. Attend education classes. Improve Knowledge Test score - Stage of Change Stages of Change:: Action - Learning Barriers Learning Barriers: Participates in education - Family Support Do you have family support?: Yes - Tobacco Use Tobacco Use: Non-smoker Do you use smokeless tobacco?: No - Intervention Smoking Cessation Referral:: No Individual Education/Counseling:: No Education Schedule Given:: Yes - Education Attended class for:: Tobacco triggers, Coronary artery disease, Risk factors, Sexuality, Medical compliance, Cardiac A&P, Angina signs & symptoms Psychosocial - Initial Assess - Target Goals Target Goals: Assess presence or absence of depression. Using a valid screening tool, maximizes coping skills. Positive support system - Psychosocial Test Tool Used:: HANDS Depression Questionnaire - Assistive Devices Fall Risk Assessed:: Yes - no treadmill pt has been falling Psychosocial - 30-Day Assess - Target Goals Target Goals: Assess presence or absence of depression. Using a valid screening tool, maximizes coping skills. Positive support system - Stages of Change Stages of Change:: Action - Psychosocial Test Tool Used:: HANDS Depression Questionnaire - Intervention PS - Interventions: Yes Attend Stress Management Classes, Yes Uses Stress Management Skills, No Referral to Mental Health, No Referral to [facility] Case Management, No Referral to Physician - Education Attended classes for:: Coping techniques, Signs & symptoms of depression, Stress management, Relaxation techniques - Assistive Devices Assistive Devices:: None Fall Risk Assessed:: Yes Patient Health Questionnaire 30-Day Re-eval Assessment 1. Little interest or pleasure in doing things: Not at all 2. Feeling down, depressed, or hopeless: Not at all 3. Trouble falling or staying asleep, or sleeping too much: Not at all 4. Feeling tired or having little energy: Not at all 5. Poor appetite or overeating: Not at all 6. Feeling bad about yourself -- or that you are a failure or have let yourself or your family down: Not at all 7. Trouble concentrating on things, such as reading the newspaper or watching television: Not at all 8. Moving or speaking so slowly that other people could have noticed. Or the opposite - being so fidgety or restless that you have been moving around a lot more than usual: Not at all 9. Thoughts that you would be better off , or of hurting yourself in some way: Not at all How difficult have these problems made it for you to do your work, take care of things at home, or get along with other people?: Not difficult at all Total Score: 0 Self-Efficacy 30-Day Re-eval Assessment We would like to know how confident you are in doing certain activities. Please select your confidence level for:: Select your confidence level for the following using the scale 1-10 where 1 is not at all confident and 10 is totally confident. Your score is the average of all 6 responses. Fatigue: How confident are you that you can keep the fatigue caused by your disease from interfering with the things you want to do? Select Number: 9 Physical Discomfort or Pain: How confident are you that you can keep the physical discomfort or pain of your disease from interfering with the things you want to do? Select Number: 9 Emotional Distress: How confident are you that you can keep the emotional distress caused by your disease from interfering with the things you want to do? Select Number: 9 Other Symptoms or Health Problems: How confident are you that you can keep other symptoms or health problems from interfering with the things you want to do? Select Number: 9 Different Tasks and Activities: How confident are you that you can do the different tasks and activities needed to manage your health condition so as to reduce your need to see a doctor? Select Number: 9 Medication: How confident are you that you can do things other than just taking medication to reduce how much your illness affects your everyday life? Select Number: 9 Total Score:: 9
[2017-12-12 08:21] VITALS: BP 118/70; BP 124/68
== END 2018-01-04 23:59 ==
LOC: CR 13:00
PROVIDERS: Family Provider Family Medicine; PCP Family Medicine; Referring Provider Internal Medicine Cardiovascular Disease; Visit Provider Internal Medicine Cardiovascular Disease
DX: Z95.5 Presence of coronary angioplasty implant and graft (principal); I25.10 Atherosclerotic heart disease of native coronary artery without angina pectoris
CPT/HCPCS: 93798

== ENCOUNTER 2017-12-14 13:44 | Emergency (ER) | payer MEDICARE, OTHER, SELFPAY ==
[2017-10-12 14:26] VITALS: BMI 27.3
[2017-12-14 13:46] VITALS: BP 125/81; PULSE 66; RESP 16; TEMP 36.8; O2SAT 98; BMI 26.9
[2017-12-14 14:14] VITALS: BP 123/77; PULSE 81; RESP 16; O2SAT 97
[2017-12-14 14:15] VITALS: O2SAT 97
--- NOTE | 2017-12-14 15:10 | EKG12_ITS ---
Test Reason : SOB Blood Pressure : / mmHG Vent. Rate : 064 BPM Atrial Rate : 064 BPM P-R Int : 142 ms QRS Dur : 092 ms QT Int : 428 ms P-R-T Axes : 057 006 018 degrees QTc Int : 441 ms Normal sinus rhythm Nonspecific ST and T wave abnormality Abnormal ECG Confirmed by LLUVIA SAUER, AIRAM ([id number]), photography editor CAROL PAZ ([id number]) on 12/19/2017 3:44:30 PM Referred By: AURELIA Confirmed By:AIRAM TEIXEIRA MD
--- NOTE | 2017-12-14 15:10 | RAD_ITS ---
STUDY: X-RAY CHEST REASON FOR EXAM: Female, 72 years old. Shortness of breath and dizziness. TECHNIQUE: Single AP portable view of the chest. COMPARISON: November 23, 2017 FINDINGS: There are monitoring devices. The lungs are clear and expanded. There is no demonstrated pleural abnormality. Normal size heart. There are calcified mediastinal lymph nodes. Normal visualized pulmonary arteries. There is atherosclerotic calcification of the aortic arch with tortuosity. Normal visualized thoracic spine. Normal visualized ribs, clavicles, and shoulders. There is no demonstrated abnormality of the visualized soft tissue structures of the upper abdomen. RAD/Chest 1 View (Portable) IMPRESSION: Degenerative changes, as described above. No demonstrated acute cardiopulmonary process. Electronically Signed: Thomas Crawley MD at 16:24 EDT , Service support ,
[2017-12-14 15:22] LABS: Absolute Lymphocyte Count 1.88 X10^3/ul (0.83-4.51); Absolute Neutrophil Count 1.5 X10^3/uL (2.0-7.7); Basophil# 0.03 X10^3/uL; Basophil% 0.8 % (0-1); Eosinophil# 0.05 X10^3/uL; Eosinophils% 1.3 % (0-5); Hematocrit 35.1 % (37-47); Hemoglobin 11.7 g/dl (12.0-15.0); Lymphocyte # 1.88 X10^3/ul (4.0); Lymphocyte % 49.3 % (19-41); Mean Corp Hgb Conc 33.3 g/gl (32-36); Mean Corpuscular Hgb 30.3 pg (27.0-32.0); Mean Corpuscular Volume 90.9 fL (81-99); Mean Platelet Vol. 9.2 fl (6.2-12.0); Monocyte# 0.31 X10^3/uL; Monocyte% 8.1 % (0-10); Neutrophil # 1.53 X10^3/uL (2.7-7.7); Neutrophil % 40.2 % (47-70); Platelet Count 349 K/mm3 (150-450); RBC Distribution Width CV 12.7 % (11.6-14.6); RBC Distribution Width SD 41.5 fl (35.1-43.9); Red Blood Count 3.86 M/mm3 (4.2-5.4); White Blood Count 3.8 K/mm3 (4.4-11.0)
[2017-12-14] MEDS: 0.9% Normal Saline 1,000 ML 150 ML IV (15:23)
[2017-12-14 15:24] LABS: POSITIVE COUNT NO; POSITIVE DIFFERENTIAL NO; POSITIVE MORPHOLOGY NO
[2017-12-14] MEDS: proMETHazine 25 MG/ML Syringe 12.5 MG IV (15:24)
[2017-12-14 15:26] VITALS: BP 121/71; BP 124/72; BP 128/77; PULSE 62; PULSE 66; PULSE 80
--- NOTE | 2017-12-14 15:26 | ED.DCSUM_ITS ---
- ER Visit Summary Date of Service: 12/14/17 Chief Complaint: [Shortness of breath] History of Present Illness: The patient is a 72 F [presents the emergency department with complaint of shortness of breath that started around 1:35 PM today. Patient apparently went to cardiac rehab and was working out on the machines when she got acutely lightheaded and felt very short of breath. Patient also developed numbness and tingling about her lips and nose and developed a headache. Patient became nauseated and continues to feel nauseated. Patient currently complaining of a headache in the back part of her head on the right side of her head. Patient states that she gets headaches daily and this is not unusual for her. Patient currently has been diagnosed with migraines. Patient did have a cardiac stent placed in end of September. Patient states that she is just not had much energy since that time and she has similar symptoms like today whenever she is active or exerts herself. Patient scheduled later in the month to follow-up with motor vehicle emissions inspector about possible pacemaker placement. Patient denies recent illness such as fever or cough.] Physical Examination: [HEENT-PERRLA, EOMI. Cranial nerves II through XII grossly intact. TMs clear. Mucous membranes moist. No adenopathy. Cardiovascular-regular rate and rhythm without murmur or ectopy Lungs-clear to auscultation, chest wall stable without crepitus or subcu emphysema Abdomen-normoactive bowel sounds, soft, nontender, no rebound or rigidity, no peritoneal signs. Extremities-intact ?4, normal range of motion, normal pulses, atraumatic] Test Results: [EKG obtained on arrival showed a sinus rhythm with a ventricular rate of 64 bpm with some nonspecific ST changes noted anteriorly.] When compared with prior EKG no new changes noted. CBC with differential showed a white count of 3.8, hemoglobin 11.7, hematocrit 35, platelet 349. Chemistries unremarkable. Troponin was less than 0.015. Chest x-ray was normal. Emergency Department Course and Treatment: [I discussed case with patient's motor vehicle emissions inspector Dr. Edis Ewing who did not feel any further workup or treatment warranted at this time. Patient was medicated with Phenergan and her nausea improved. She did not want anything for her headache at this time. Patient is scheduled to have some sort of an investigational drug per her neurologist notes to help with her headaches.] Treatment Plan: [Follow-up with cardiology as she actually has an appointment in 2 days.] Disposition: [Discharged home in stable condition] Impression: [Dyspnea-etiology uncertain Cephalgia] This note was generated with [employer] dictation software. It may contain incorrect words, spelling, and punctuation that were not noted in review of the chart prior to signing ED Disposition - Plan for ED Patient: Chief Complaint: Shortness of Breath Referrals: Anatoly Zuniga MD [Primary Care Provider] -
[2017-12-14 15:33] LABS: Anion Gap 6 (5-15); BUN 14 mg/dL (7-18); BUN/Creat Ratio 15.4 RATIO (10-20); Calcium,Total 9.1 mg/dL (8.5-10.1); Chloride 112 mmol/L (98-107); Creatinine, Serum 0.91 mg/dL (0.55-1.02); EST Glomerular Filtration Rate 65 mL/min (>60); Est Glom Filt Rate - Afr Amer 78 mL/min (>60); Estimated Creatinine Clearance 48.96 ml/min; Glucose 115 mg/dL (74-106); Potassium 3.8 mmol/L (3.5-5.1); Sodium Level 142 mmol/L (136-145)
--- NOTE | 2017-12-14 16:13 | ED.DEP ---
ED Disposition - Plan for ED Patient: Chief Complaint: Shortness of Breath Instructions: ED Dyspnea Shortness of Breath, ED Headache Migraine Referrals: Anatoly Zuniga MD [Primary Care Provider] - 3-5 Days Additional Instructions: see corporate director in 2 days
[2017-12-14 16:19] VITALS: BP 133/73; PULSE 65; RESP 16; O2SAT 95
--- NOTE | 2017-12-15 10:17 | CM.ED ---
ED CALLBACK: Follow-up call placed to patient. Patient states that she hasn't gotten up for the day yet, so she's unsure how she feels. She states her and children are present to help assist her. She tells me that she has an appointment with Dr. Heath tomorrow. She states concern that cardiac rehab told her she can't come back because she is too unbalanced. I instructed her to discuss this concern with Dr. Heath, tomorrow, and rest today. Patient states understanding and denies any needed assistance at this time.
== END 2017-12-14 16:21 | disposition home or self-care (01) ==
PROVIDERS: Emergency Provider Emergency Medicine; Family Provider Family Medicine; PCP Family Medicine
DX: R06.00 Dyspnea, unspecified (principal); R51 Headache; Z95.5 Presence of coronary angioplasty implant and graft; I25.10 Atherosclerotic heart disease of native coronary artery without angina pectoris
CPT/HCPCS: 71045; 80048; 84484; 85025; 93005; 93798; 96361; 96374; 99285; J7030; A4216

== ENCOUNTER → 2017-12-27 12:51 | Outpatient (CLI) | payer MEDICARE, OTHER, SELFPAY ==
[2017-10-12 14:26] VITALS: BMI 27.3
--- NOTE | 2017-12-27 12:53 | CDU_ITS ---
Reason For Study: Vertigo Rt. Velocities/BP Lt. Velocities/BP Prox CCA 92.6/21.7 cm/sec. Prox CCA 102/22 cm/sec. Mid CCA 104/25.2 cm/sec. Mid CCA 115/26.7 cm/sec. Dist CCA 105/24.4 cm/sec. Dist CCA 122/22 cm/sec. Prox ICA 91.9/26.7 cm/sec. Prox ICA 74.6/23.6 cm/sec. Mid ICA 93.5/33 cm/sec. Mid ICA 55.4/18.2 cm/sec. Dist ICA 55.8/15.3 cm/sec. Dist ICA 58.6/14.4 cm/sec. Rt. ICA/CCA = 0.90. Lt. ICA/CCA = 0.65. Prox ECA 105/11.8 cm/sec. Prox ECA 102/18.9 cm/sec. Rt. Vert. 60.9/17.3 cm/sec. Lt. Vert. 58.1/18.5 cm/sec. Right Extracranial There is intimal thickening but no significant atherosclerotic plaque noted in the right common carotid artery. There is heterogeneous, smooth atherosclerotic plaque noted in the right internal carotid artery. There is intimal thickening but no significant atherosclerotic plaque noted in the right external carotid artery. Antegrade flow is noted in the right vertebral artery. Left Extracranial There is intimal thickening but no significant atherosclerotic plaque noted in the left common carotid artery. There is homogeneous, smooth atherosclerotic plaque noted in the left internal carotid artery. There is intimal thickening but no significant atherosclerotic plaque noted in the left external carotid artery. Procedure Carotid Duplex [id number]. Exam performed in department. Interpretation Summary Minimal smooth plague at the proximal bilateral internal carotids with <50% stenosis bilaterally Normal flow bilateral external carotids Patent and antegrade vertebrals bilaterally Ordering Physician: Roney Navarro Referring Physician: MD Anatoly Zuniga Performed By: Donna Seo RVT and Student
== END ==
PROVIDERS: Family Provider Family Medicine; PCP Family Medicine; Referring Provider Nurse Practitioner Family; Visit Provider Nurse Practitioner Family
DX: R42 Dizziness and giddiness (principal)
CPT/HCPCS: 93880

== ENCOUNTER → 2018-08-31 | Outpatient (CLI) | payer MEDICARE, OTHER, SELFPAY ==
[2017-10-12 14:26] VITALS: BMI 27.3
[2018-08-11 14:11] VITALS: BMI 27.3
--- NOTE | 2018-08-31 13:35 | ECHOD_ITS ---
Reason For Study: DYSPNEA/SOB Procedure This was a 2D Doppler, Color Flow transthoracic echocardiogram. The study was technically difficult. Left Ventricle Normal LV size. Mid cavitary false tendon noted. Left ventricular systolic function is normal. The estimated ejection fraction is 55 %. Diastolic function is indeterminate. No regional wall motion abnormalities noted. Right Ventricle Normal RV size. Normal systolic function. Atria The left atrium is mildly enlarged. Normal right atrium. No doppler evidence for ASD. Mitral Valve There is no mitral annular calcification. Normal mitral valve. Trivial mitral valve insufficiency. Tricuspid Valve Normal tricuspid valve. Trivial tricuspid valve insufficiency. Right ventricular systolic pressure estimated to be 26 mmHg. Aortic Valve Trisinus/trileaflet aortic valve. Normal aortic valve. Pulmonic Valve The pulmonic valve is not well visualized. Trivial pulmonic valve insufficiency. Great Vessels Normal sized aortic root. Calcified aortic root. Pericardium/Pleural No pericardial effusion. MMode/2D Measurements & Calculations LVIDd: 5.0 cm IVSd: 1.1 cm Ao root diam: 2.9 cm LVIDs: 3.1 cm LVPWd: 1.1 cm LA dimension: 3.8 cm RVDd: 3.2 cm FS: 38.5 % LAV(MOD-bp): 66.2 ml LA A4 area: 19.3 cm2 RA A4 area: 10.6 cm2 LAV(MOD-bp) Indexed: 37.1 ml/m2 LAV(MOD-sp2): 65.4 ml LAV(MOD-sp4): 62.9 ml Time Measurements MV dec time: 0.28 sec Doppler Measurements & Calculations MV E max salbador: 49.9 cm/sec Lat Peak E' Salbador: 4.9 cm/sec Med Peak E' Salbador: 4.7 cm/sec MV A max salbador: 54.7 cm/sec E/E' lat: 10.2 E/E' med: 10.6 MV E/A: 0.91 Ao V2 max: 98.3 cm/sec LV V1 max: 77.1 cm/sec PA V2 max: 67.7 cm/sec Ao max P.9 mmHg LV V1 max P.4 mmHg TR max salbador: 235.9 cm/sec TR max P.5 mmHg Interpretation Summary The study was technically difficult. Left ventricular systolic function is normal. The estimated ejection fraction is 55 %. Mid cavitary false tendon noted. The left atrium is mildly enlarged. Trivial mitral valve insufficiency. Trivial tricuspid valve insufficiency. Trivial pulmonic valve insufficiency. Calcified aortic root. Right ventricular systolic pressure estimated to be 26 mmHg. Diastolic function is indeterminate. Ordering Physician: Andrés Heath Referring Physician: Anatoly Zuniga Performed By: Bel Lucas, MARCELA, RVT
== END | disposition home or self-care (01) ==
LOC: CVS 13:35
PROVIDERS: Family Provider Family Medicine; PCP Family Medicine; Referring Provider Internal Medicine Cardiovascular Disease; Visit Provider Internal Medicine Cardiovascular Disease
DX: I25.10 Atherosclerotic heart disease of native coronary artery without angina pectoris (principal)
CPT/HCPCS: 93306

== ENCOUNTER → 2018-09-25 | Outpatient (CLI) | payer MEDICARE, OTHER, SELFPAY ==
[2017-10-12 14:26] VITALS: BMI 27.3
[2018-08-11 14:11] VITALS: BMI 27.3
[2018-09-25 15:43] LABS: Cholesterol 220 mg/dL (200); High Density Lipoprotein 75 mg/dL; Triglycerides 151 mg/dL; Very Low Density Lipoprotein 30 mg/dL (5-40)
== END | disposition home or self-care (01) ==
LOC: LAB 13:57
PROVIDERS: Family Provider Family Medicine; PCP Family Medicine; Referring Provider Internal Medicine Cardiovascular Disease; Visit Provider Internal Medicine Cardiovascular Disease
DX: E78.2 Mixed hyperlipidemia (principal)
CPT/HCPCS: 36415; 80061

== ENCOUNTER → 2018-11-07 | Outpatient (CLI) | payer MEDICARE, OTHER, SELFPAY ==
[2017-10-12 14:26] VITALS: BMI 27.3
[2018-08-11 14:11] VITALS: BMI 27.3
--- NOTE | 2018-11-07 13:45 | RAD_ITS ---
HISTORY: Status post fall with neck pain XR Spine Cervical 4 or 5 Views TECHNIQUE: 6 views # of images incl. paperwork: 6 COMPARISON: None. FINDINGS: BONES: There is 2 mm anterolisthesis of C6 on C7. Remaining cervical vertebra are otherwise in satisfactory alignment. No acute fracture or subluxation. Odontoid process is intact. Cervical vertebra are normal in height. No significant anterior marginal osteophytosis. DISCS: Intervertebral disc spaces are well-preserved. Oblique views demonstrate patent neural foramina bilaterally. SOFT TISSUES: Prevertebral soft tissues are within normal limits. RAD/Cerv Spine 4 or 5 Views IMPRESSION: 1. No acute fracture. 2. A 2 mm anterolisthesis of C6 upon C7. Otherwise, unremarkable exam. at 0141 Reported and signed by: Robin Kim MD Electronically Signed: Robin Kim MD at 1:40 EDT Tel , Service support ,
--- NOTE | 2018-11-07 13:46 | RAD_ITS ---
HISTORY: Status post fall 2 weeks ago with right hip and pelvic pain XR Hip Unilateral with Pelvis when performed; 2-3 Views TECHNIQUE: 3 views # of images incl. paperwork: 3 COMPARISON: None. FINDINGS: BONES/JOINTS: No acute fracture or dislocation. Joint spaces are unremarkable. SOFT TISSUES: Soft tissues appear unremarkable. No radiopaque foreign body. RAD/HIP, UNI W/ Pelvis 2-3 Views IMPRESSION: 1. No acute fracture. Unremarkable exam. at 0139 Reported and signed by: Robin Kim MD Electronically Signed: Robin Kim MD at 1:38 EDT Tel , Service support ,
--- NOTE | 2018-11-07 13:46 | CT_ITS ---
STUDY: CT BRAIN WITHOUT CONTRAST REASON FOR EXAM: Female, 73 years old. Headaches following a fall. The patient is on blood thinners. RADIATION DOSAGE (If Supplied By Facility): CTDIvol = ( 60.81 ) mGy, DLP = ( 998.67 ) mGycm TECHNIQUE: Transaxial CT imaging of the brain was performed without administration of intravenous contrast material. Individualized dose optimization techniques were used for this CT. COMPARISON: Comparison is made with prior study dated August 15, 2017. FINDINGS: Normal soft tissue structures. Normal calvarium. Normal size ventricles and extra-axial spaces for the patient's age. Normal white matter tracts of the cerebral hemispheres. Normal basal ganglia and thalami. Normal brainstem. Normal cerebellum. There is no intracranial hemorrhage. There are no findings of an acute ischemic infarction. Atherosclerotic calcification of the vertebral arteries and cavernous portions of the internal carotid arteries bilaterally. Minimal mucosal thickening along the medial wall of the right maxillary sinus and lateral wall of the left maxillary sinus. Prior sinus surgery. CT/Brain/Head without Contrast IMPRESSION: Chronic involutional changes of the brain. Electronically Signed: [place]ico Otoole, at 15:28 EDT , Service support ,
--- NOTE | 2018-11-07 13:50 | RAD_ITS ---
HISTORY: Status post fall 2 weeks ago with right shoulder pain XR Shoulder Min 2 Views TECHNIQUE: 4 views # of images incl. paperwork: 4 COMPARISON: None. FINDINGS: No acute fracture or dislocation. Mild degenerative changes of the acromioclavicular joint. Mild degenerative spurring greater tuberosity of the humeral head. Bones are demineralized. No gross soft tissue abnormalities. RAD/Shoulder min 2 Views IMPRESSION: 1. No acute osseous abnormality. at 0138 Reported and signed by: Robin Kim MD Electronically Signed: Robin Kim MD at 1:37 EDT Tel , Service support ,
== END | disposition home or self-care (01) ==
LOC: RAD 13:42
PROVIDERS: Family Provider Family Medicine; PCP Family Medicine; Referring Provider Nurse Practitioner Family; Visit Provider Nurse Practitioner Family
DX: R52 Pain, unspecified (principal); W19.XXXA Unspecified fall, initial encounter
CPT/HCPCS: 70450; 72050; 73030; 73502

== ENCOUNTER → 2018-11-23 | Outpatient (CLI) | payer MEDICARE, OTHER, SELFPAY ==
[2017-10-12 14:26] VITALS: BMI 27.3
[2018-08-11 14:11] VITALS: BMI 27.3
--- NOTE | 2018-11-23 13:41 | CT_ITS ---
HISTORY:FALL, FACIAL BRUISING FALL, FACIAL BRUISING TECHNIQUE: Multiple axial images were obtained of the brain without intravenous contrast. A radiation dose optimization technique was used for this scan. IV Contrast dosage and agent: None. COMPARISON: November 07, 2018 FINDINGS: # of images incl. paperwork: 235 INFARCT: None HEMORRHAGE: None PARENCHYMAL ATTENUATION:Mild periventricular white matter low density compatible with chronic small vessel ischemic change and similar to prior study MASS: None MIDLINE SHIFT: None BASAL CISTERNS: Patent VENTRICLES: Normal in size and configuration for age PARANASAL SINUSES:Mucous retention cystin the bilateral maxillary sinuses. MASTOID AIR CELLS: Clear ORBITS:No acute pathology CALVARIUM: No acute pathology OTHER TISSUES: No acute pathology ASPECTS Score for Acute Strokes: 10 CT/Brain/Head without Contrast IMPRESSION: No acute intracranial pathology. Chronic changes as discussed Individualized dose optimization techniques were used for this CT. at 1749 Reported and signed by: Lenka Cabral DO Electronically Signed: Lenka Cabral DO at 17:48 EDT Tel , Service support ,
== END | disposition home or self-care (01) ==
LOC: SL 12:44
PROVIDERS: Family Provider Family Medicine; PCP Family Medicine; Referring Provider Nurse Practitioner Family; Visit Provider Nurse Practitioner Family
DX: R42 Dizziness and giddiness (principal); S09.90XA Unspecified injury of head, initial encounter; R52 Pain, unspecified; W19.XXXA Unspecified fall, initial encounter
CPT/HCPCS: 70450; 97110; 98960; G0463

== ENCOUNTER 2018-12-28 15:00 | Outpatient (RCR) | payer MEDICARE, OTHER, SELFPAY ==
[2017-10-12 14:26] VITALS: BMI 27.3
[2018-08-11 14:11] VITALS: BMI 27.3
--- NOTE | 2018-11-15 15:48 | HP.PTEVAL_ITS ---
Patient's Visit Information DAYSI SHABAZZ is a 73 year old F referred to Physical Therapy by MARISELA Mendez with a diagnosis of vertigo. Date of Evaluation: 11/15/18 Physical Therapist: CHRISTOPHER MuroT, OCS, CSCS - Visit Plan Frequency: 2x /Week Duration: 4-6 Weeks Plan: 2x/week for 4-6 weeks. 1. given habituation ex of nods and truns 5 reps 5x/day at home seated, monitor and progress these to vOR. 2. VOR and balance exercises with turns, floor touches, VOR walking, balance challenges as safety allows and progress HEP as tolerated. - Subjective Findings: Dizzy for a couple years. Sent to neurology and put on migraine meds adn gave breathing machines. Have not helped dizzyness. Dizzyness is described getting up or turning too quick and gets unsteady. Fell one time getting up from chair and going BW a number of weeks ago. This is OK lying adn sitting but walking is worse. Intermittent. Comes up unexpectedly. Happened stadning up from boat and feeding ducks. No spinning but feels like eyes move. This lasts not long. Taking dog outside at night can cause it. Has walking stick to use in the yard. Not usually a problem in bed. Basic ADLs are getting done but they take longer. Tires easily. Enjoys swimming in pond and painting sewing adn quilting. Doesn't want to go to [place] due to steadiness. Needs to hold on at [employer]. Gets neck pain at times - Pain neck pain. Pain Intensity (Out of 10): 5 Pain Intensity Range: 0, 5 - Objective Walks steadily on firm flat surface with plenty of light but more difficult with head movements. transfers I requiring UE. Steps are reciprocal with one rail. - B hallpike jewels test, - roll test. Ocuomotor: no nystagmus with gaze or head shke. pursuit is saccadic. Saccades are slightly symptomatic and difficult. convergence is OK. - skew eye deviation and ocular tilt. VOR is slow and hard with slight symptoms after 30 seconds of 5/10. MSQ: head turns and nods very problematic and tends to cotniue into extension of neck after head nods. Does similar with up from either knee with 6/10 syptoms transiently. - Balance Scores Functional Gait Assessment Score: 19 % Disability: 36.6700 CATSIB Score (Max score 120 seconds): 56 - Goals Goal 1:: 24/30 FGa to diminish fall risk Goal Time Frame: 4-6 Weeks Goal 2:: Improve dizzyness by 75% Goal Time Frame: 4-6 Weeks Goal 3:: DHI improved to less than 10% Goal Time Frame: 4-6 Weeks Goal 4:: Patient feel balacne and steadiness improved by 50% and lina to go out confidnetly with dog at night. Goal Time Frame: 4-6 Weeks - Rehabilitation Potential Physical Therapy Diagnosis: vertigo, vestibualr hypofucntiona possibility. Rehabilitation Potential: Questionable - Anticipated Interventions Patient/Client Instruction: Educate patient on: Condition For the Purpose of:: To increase tolerance to activity/condition/position, To improve balance Therapeutic Exercise to Include: Balance training, Gait and locomotor training Comment: habituation For the Purpose of:: To increase tolerance to activity/condition/position, To improve ability of physical actions for home/community/work/leisure, To improve balance Thank you for the opportunity to evaluate your patient. For Medicare and Medicare HMO plans, please review the plan of care and approve it. It will need to be FAXED BACK to us at [phone] for Medicare purposes. For Medicare only, by signing this I certify the plan of care. Please let me know if there are questions or concerns regarding this plan of care. Physician Signature: Date:
--- NOTE | 2018-12-28 15:26 | HP.PTDCSUM_ITS ---
HP - PT D/C Summary It has been my pleasure to treat DAYSI SHABAZZ under orders from MARISELA Mendez, for the diagnosis of vertigo for a total of 5 visit(s). Discharge Date: 12/28/18 Please see the following information for a summary of their discharge status. - Subjective Subjective: I guess Im OK. No falls. Very little dizzyness. Mostly in am when she gets it. Described as nausea more often than not. Lasts for an hour or so. When she is tired than her dizzyness is worse during the day. Will see veterans services specialist next month. Not scheduled with neurologist. Doing ex at home seated - Pain neck pain. Pain Intensity (Out of 10): 0 - Overall Improvement % Improvement: 90 - Objective Objective/Function: VOR still causes some room movement for a few seconds. Quick dizzyness with head nods adn turns and up from knees for a few seconds. Other MSQ not bad today. FGA much better today. Recommended patient f/u with neuro if symptoms keep going up and down and prioritize veterans services specialist/ER visit if chest pain occurs. - Goals Goal 1:: FGa to diminish fall risk Goal Progress: Progressing Goal 2:: Improve dizzyness by 75% Goal Progress: Goal Met Goal 3:: DHI improved to less than 10% Goal Progress: Progressing Goal 4:: Patient feel balacne and steadiness improved by 50% and lina to go out confidnetly with dog at night. Goal Progress: Goal Met - Plan Plan: d/c , pt to ex at home and call neuro if dizzy returns. - D/C Information Discharge Comments: Pt to continue HEP and f/u with neuro for other options if dizzyness doesn't continue to improve or she digresses again. If there are questions or concerns regarding this patient's physical therapy, please feel free to call me at [phone]. Thank you for the referral of this patient. Sincerely, Nicolás Parry, DPT, OCS, CSCS
== END 2018-12-28 19:00 | disposition home or self-care (01) ==
LOC: PT 15:00
PROVIDERS: Family Provider Family Medicine; PCP Family Medicine; Referring Provider Nurse Practitioner Family; Visit Provider Nurse Practitioner Family
DX: R42 Dizziness and giddiness (principal)
CPT/HCPCS: 97110; 97162; 97530

== ENCOUNTER 2019-01-01 12:15 | Emergency (ER) | payer MEDICARE, OTHER, SELFPAY ==
[2017-10-12 14:26] VITALS: BMI 27.3
[2018-08-11 14:11] VITALS: BMI 27.3
[2019-01-01 12:16] VITALS: BP 133/71; PULSE 63; RESP 14; TEMP 36.5; O2SAT 99; BMI 27.8
[2019-01-01 12:46] VITALS: BP 122/77; PULSE 63; RESP 20; O2SAT 99
--- NOTE | 2019-01-01 12:51 | RAD_ITS ---
STUDY: X-RAY CHEST REASON FOR EXAM: Female, 73 years old. Chest pain and tachycardia. TECHNIQUE: Single AP portable view of the chest. COMPARISON: Comparison is made with prior examination dated December 14, 2017. FINDINGS: EKG electrodes are seen. The lungs are clear and expanded. There is no demonstrated pleural abnormality. Normal size heart. Normal mediastinum and brian. Normal visualized pulmonary arteries. There is atherosclerotic calcification of the aortic arch with tortuosity. There are diffuse degenerative changes of the visualized thoracic spine. Normal visualized ribs, clavicles, and shoulders. There is no demonstrated abnormality of the visualized soft tissue structures of the upper abdomen. RAD/Chest 1 View (Portable) IMPRESSION: No acute abnormality is seen. Electronically Signed: Chico Otoole, at 13:30 EDT , Service support ,
--- NOTE | 2019-01-01 12:51 | EKG12_ITS ---
Test Reason : CP Blood Pressure : / mmHG Vent. Rate : 064 BPM Atrial Rate : 064 BPM P-R Int : 150 ms QRS Dur : 088 ms QT Int : 414 ms P-R-T Axes : 048 -04 -07 degrees QTc Int : 427 ms Normal sinus rhythm ST & T wave abnormality, consider anterior ischemia Abnormal ECG Confirmed by CHINA GIBSON ([id number]), mapping editor ANNI FLANNERY ([id number]) on 01/08/2019 9:08:51 AM Referred By: JANAY Confirmed By:CHINA GIBSON
[2019-01-01 12:59] VITALS: O2SAT 98
[2019-01-01 13:16] LABS: Absolute Lymphocyte Count 1.99 X10^3/uL (0.83-4.51); Absolute Neutrophil Count 2.5 X10^3/uL (2.0-7.7); Basophil# 0.05 X10^3/uL; Eosinophil# 0.06 X10^3/uL; Eosinophils% 1.2 % (0-5); Hematocrit 38.1 % (37-47); Hemoglobin 12.3 g/dL (12.0-15.0); Lymphocyte # 1.99 X10^3/ul (4.0); Lymphocyte % 39.6 % (19-41); Mean Corp Hgb Conc 32.3 g/dL (32-36); Mean Corpuscular Hgb 29.3 pg (27.0-32.0); Mean Corpuscular Volume 90.7 fL (81-99); Mean Platelet Vol. 9.3 fl (6.2-12.0); Monocyte# 0.43 X10^3/uL; Monocyte% 8.6 % (0-10); NRBC Flagged by Analyzer 0 % (0-5); Neutrophil # 2.47 X10^3/uL (2.7-7.7); Neutrophil % 49.2 % (47-70); Platelet Count 219 K/mm3 (150-450); RBC Distribution Width CV 13.2 % (11.6-14.6); RBC Distribution Width SD 43.5 fl (35.1-43.9)
[2019-01-01] MEDS: Aspirin 81 MG TAB.CHEW 324 MG PO (13:30)
[2019-01-01 13:33] LABS: Anion Gap 6 (5-15); BUN 13 mg/dL (7-18); BUN/Creat Ratio 14.5 RATIO (10-20); Calcium,Total 9.1 mg/dL (8.5-10.1); Chloride 111 mmol/L (98-107); EST Glomerular Filtration Rate 66 mL/min (>60); Est Glom Filt Rate - Afr Amer 79 mL/min (>60); Estimated Creatinine Clearance 48.79 ml/min; Glucose 109 mg/dL (74-106); Potassium 3.9 mmol/L (3.5-5.1); Sodium Level 142 mmol/L (136-145)
--- NOTE | 2019-01-01 13:48 | ED.DCSUM_ITS ---
History of Present Illness Chief Complaint: Chest Pain Informant: Patient Onset: Days Context: Gradual Onset Timing: Continuous Current Severity: Moderate Maximum Severity: Moderate Narrative: The patient is a 73-year-old female with medical history significant for takotsubo's cardiomyopathy and prior coronary vascular disease who presents to the emergency department with 3 days of constant chest pain. The patient was recently admitted for chest pain and had an negative stress test and echo. She states that she has been under significant amount of stress at home. Her was recently diagnosed with paranoid dementia. She states that he has been increasingly confused and agitated. She feels like this may be contributing to her chest pain. She does describe mild nausea. She states is not made worse with exertion. Is actually worse at night when she is laying down. She denies any fevers or chills. Prior similar symptoms: Yes Recent Illness/Hospitalization: No Past Medical History - Allergies and Home Meds Allergies/Adverse Reactions: Allergies atorvastatin [From Lipitor] Allergy (Verified 01/01/19 12:41) Swelling Penicillins Allergy (Verified 01/01/19 12:41) Anaphylaxis rosuvastatin [From Crestor] Allergy (Verified 01/01/19 12:41) Swelling Primary Care Physician: Anatoly Zuniga MD [Primary Care Provider] - Prior records reviewed: Yes Surgical History: appendectomy, cholecystectomy, hysterectomy, - - Surgery for hiatal hernia, cath with stent to RCA Smoking Status: Never smoker - Family History Maternal Family History: Family History (Last Reviewed 08/11/18 @ 14:17 by Radha Warren) Grandmother Myocardial infarction Grandmother Myocardial infarction Family History: Reports: No pertinent history Paternal Family History: Family History (Last Reviewed 08/11/18 @ 14:17 by Radha Warren) Grandmother Myocardial infarction Grandmother Myocardial infarction Family History: Reports: No pertinent history Review of Systems General: Denies: Chills, Fever, Sweats Eyes: Denies: Visual changes - bilaterally, Diplopia ENT: Denies: Rhinorrhea, Sore throat Cardiovascular: Reports: Chest pain. Denies: Palpitations Respiratory: Denies: Dyspnea, Cough, Dyspnea on exertion Gastrointestinal: Reports: Nausea. Denies: Abdominal pain, Vomiting, Diarrhea, Melena, Hematochezia Genitourinary: Denies: Dysuria, Hematuria, Frequency Musculoskeletal: Denies: Back pain, Extremity Pain Skin: Denies: Rash, Wounds Neurological: Denies: Headache, Weakness, Numbness Physical Exam Vital Signs/Narrative: Vital Signs Temp Pulse Resp BP Pulse Ox 01/01/19 12:59 98 01/01/19 12:46 63 20 H 122/77 H 99 01/01/19 12:16 97.7 F L 63 14 133/71 H 99 Inital Vital Signs reviewed: Yes General: Well nourished, Well developed, No Acute Distress Head: Normocephalic, Atraumatic Eyes: Perrl, EOMI ENT: Moist mucous membranes, No rhinorrhea Neck: Supple, Nontender Cardiovascular: Regular rate, Regular rhythm, No murmurs Respiratory: No distress, CTA bilaterally, Chest nontender Abdomen: Soft, Nontender, Nondistended, Normal bowel sounds Back: Nontender, Normal Inspection Extremities: Nontender, No edema Skin: Normal color, No rash Neurological: Alert, Oriented x3, Cranial nerves II-XII grossly intact, Normal Strength, Normal Sensation Psychological: Normal affect, Normal Mood Diagnostic/Tx/Re-eval Chest X-Ray - ED: 1 View, Normal, Heart, Lungs, Mediastinum Clinical Impression(s) from Imaging Studies Chest X-Ray 01/01/19 12:51 IMPRESSION: No acute abnormality is seen. Electronically Signed: Chico Otoole, at 13:30 EDT , Service support , Abnormal Lab Results 01/01/19 01/01/19 12:58 12:58 WBC 5.0 RBC 4.20 Hgb 12.3 Hct 38.1 MCV 90.7 MCH 29.3 MCHC 32.3 RDW Std Deviation 43.5 RDW Coeff of Kalani 13.2 Plt Count 219 MPV 9.3 Immature Gran % (Auto) 0.400 Neut % (Auto) 49.2 Lymph % (Auto) 39.6 [place] % (Auto) 8.6 Eos % (Auto) 1.2 Baso % (Auto) 1.0 Absolute Neuts (auto) 2.5 Absolute Lymphs (auto) 1.99 Nucleated RBC % 0 Sodium 142 Potassium 3.9 Chloride 111 H Carbon Dioxide 25.0 Anion Gap 6 BUN 13 Creatinine 0.90 Estim Creat Clear Calc 48.79 Est GFR (MDRD) Af Amer 79 Est GFR (MDRD) Non-Af 66 BUN/Creatinine Ratio 14.5 Glucose 109 H Calcium 9.1 Troponin I < 0.015 - Rhythm Strip Rhythm Strip: Sinus Rhythm Rate: 80 Ectopy: None - EKG Initial EKG Interpretation: Sinus Rhythm, No Acute Injury Pattern Prior: Unchanged - Medical Decision Making The patient presents with 3 days of constant chest pain that is worse at night. Her EKG shows some nonspecific T wave inversions across the precordium, but these are unchanged from prior. She is a constant pain. Her cardiac enzymes were normal. At this point, I do feel that this is more likely stress related. She had a recent negative stress test. Her vitals are unremarkable. She is resting comfortably. At this point, given that she is safe for discharge with outpatient follow-up. She is comfortable with this plan of care. Impression 1. Nonspecific chest pain ED Disposition - Plan for ED Patient: Disposition: Home or Assisted Living Instructions: CHEST PAIN, NonCardiac Prescriptions: proMETHazine tablet [Phenergan] 12.5 mg PO Q6H PRN PRN #10 tab PRN Reason: Nausea Prescription Printed Referrals: Anatoly Zuniga MD [Primary Care Provider] -
[2019-01-01 13:56] VITALS: BP 135/77; PULSE 55; RESP 17; O2SAT 100
== END 2019-01-01 14:05 | disposition home or self-care (01) ==
LOC: ED 13:22
PROVIDERS: Emergency Provider Emergency Medicine; Family Provider Family Medicine; PCP Family Medicine
DX: R07.9 Chest pain, unspecified (principal); I51.81 Takotsubo syndrome
CPT/HCPCS: 71045; 80048; 84484; 85025; 93005; 99284; A4216

== ENCOUNTER 2021-08-09 14:02 | Emergency (ER) | payer MEDICARE, OTHER, SELFPAY ==
[2017-10-12 14:26] VITALS: BMI 27.3
[2021-08-09] VITALS (7 sets, daily range): BP systolic 128–146; BP diastolic 76–79; PULSE 61–85; RESP 13–20; TEMP 37.3–37.4; O2SAT 95–97; BMI 29.5
--- NOTE | 2021-08-09 14:14 | EKG12_ITS ---
Test Reason : SOB Blood Pressure : / mmHG Vent. Rate : 060 BPM Atrial Rate : 060 BPM P-R Int : 150 ms QRS Dur : 098 ms QT Int : 416 ms P-R-T Axes : 061 014 001 degrees QTc Int : 416 ms Normal sinus rhythm ST & T wave abnormality, consider anterior ischemia Abnormal ECG Confirmed by GARDENIA SAUER, ALEXEY ([id number]), editor greeting card ANNI FLANNERY ([id number]) on 08/13/2021 9:00:09 AM Referred By: JUDI Confirmed By:ALEXEY VARNER MD
--- NOTE | 2021-08-09 14:15 | ED.VIS.DYS ---
HPI History of Present Illness Chief Complaint: Shortness of Breath Narrative Narrative: 75-year-old female presenting with chest pain. She states initially she had COVID about 3 weeks ago and improved but now she is having symptoms of cough, congestion, itching watery eyes. She states has been coughing more frequently. She has not had a fever at home since she is recovered. She does state that when she gets up to ambulate that she gets some chest tightness. This is only when she is exerting herself. She does not describe it as sharp or heavy. She describes it as like indigestion but she is not having any indigestion. She does have history of hyperlipidemia, CAD, GERD Takotsubo cardiomyopathy. No history of DVT/PE. [facility] Medical History Atherosclerosis of [place] coronary artery of [place] heart without angina pectoris Chest pain Depression GERD (gastroesophageal reflux disease) Irritable bowel syndrome Mixed hyperlipidemia Sinus node dysfunction Takotsubo cardiomyopathy Home Medications citalopram 40 mg PO QHS 12/13/16 [History Last Taken 11/22/17] lubiprostone 24 mcg PO BID 08/15/17 [History Last Taken 11/23/17] nitroglycerin 0.4 mg sublingual tablet 0.4 mg SUBLINGUAL Q5-15M PRN #25 tab 10/27/17 [Rx Last Taken Unknown] diphenhydramine HCl 50 mg capsule 50 mg PO QHS PRN 08/11/18 [History Last Taken Unknown] fexofenadine 180 mg tablet 180 mg PO DAILY 08/11/18 [History Last Taken Unknown] lisinopril 5 mg tablet 5 mg PO DAILY #90 tab 08/11/18 [Rx Last Taken Unknown] pantoprazole 40 mg tablet,delayed release 40 mg PO BID 08/11/18 [History Last Taken Unknown] pravastatin 20 mg tablet 20 mg PO DAILY #30 tab 11/27/18 [Rx Last Taken Unknown] promethazine 12.5 mg PO Q6H PRN PRN #10 tab 01/01/19 [Rx Last Taken Unknown] pumpkin seed extract-soy germ 2 tab PO DAILY 01/01/19 [History Last Taken Unknown] clopidogrel 75 mg tablet 75 mg PO DAILY #30 tab 08/05/20 [Rx Last Taken Unknown] prednisone 50 mg PO DAILY 3 Days #15 tab 08/09/21 [Rx Last Taken Unknown] Allergy/AdvReac Type Severity Reaction Status Date / Time atorvastatin [From Lipitor] Allergy Swelling Verified 08/09/21 14:05 Penicillins Allergy Anaphylaxis Verified 08/09/21 14:05 rosuvastatin [From Crestor] Allergy Swelling Verified 08/09/21 14:05 Family History Grandmother Myocardial infarction Grandmother Myocardial infarction Surgical History History of cholecystectomy History of hernia surgery History of hysterectomy History of oophorectomy History of sinus surgery Hx of appendectomy Social History Smoking Status: Never smoker alcohol intake: current details: rare substance use type: does not use ROS ROS ED Constitutional Constitutional ED: Denies chills or fever(s) Eyes Eyes: Denies blurry vision or diplopia ENT ENT ED: Reports rhinorrhea, sore throat and other Details: Itching watering eyes, itchy throat Cardiovascular Cardiovascular: Reports chest pain Respiratory/Chest Respiratory/Chest: Reports cough and dyspnea Gastrointestinal Gastrointestinal: Denies abdominal pain, nausea or vomiting Genitourinary Genitourinary ED: Denies dysuria or hematuria Musculoskeletal Musculoskeletal: Denies arthralgias or myalgias Integumentary Denies rash Neurologic Neurologic: Denies headache(s) or weakness Psychiatric Psychiatric: Denies anxiety or depression Endocrine Endocrinology: Denies polydipsia or polyuria Hematologic/Lymphatic Hematologic/Lymphatic: Denies easy bleeding or easy bruising EXAM Physical Exam Const Vital Signs: 08/09/21 14:03 08/09/21 14:04 08/09/21 14:21 Temperature 99.2 F H 99.2 F H Temperature Source Temporal Temporal Pulse Rate 85 85 Respiratory Rate 20 H 20 H Respiratory Effort Blood Pressure 146/79 H 146/79 H Blood Pressure Mean 101 101 Pulse Ox 95 95 97 Oxygen Delivery Method Room Air Room Air Room Air 08/09/21 14:22 08/09/21 14:51 Temperature Temperature Source Pulse Rate 65 Respiratory Rate 13 Respiratory Effort Non-Labored Short of Breath Blood Pressure 128/76 H Blood Pressure Mean 93 Pulse Ox 96 Oxygen Delivery Method Room Air Room Air Positive well nourished General Appearance ED: NAD; Negative for pallor HEENT Reports normocephalic, head/scalp atraumatic and moist mucous membranes Face and Sinus: sinuses nontender and face symmetric Nose: external nose normal and nasal discharge clear; Negative for epistaxis External Ear: external ears normal Mouth ED: Yes oral and palatal mucosa normal, Yes lips normal, Yes tongue normal and Yes salivary gland normal Mouth: oral and palatal mucosa normal, lips normal, tongue normal and salivary gland normal Eyes PERRL and EOMs intact bilaterally Neck no lymphadenopathy and supple Chest Wall inspection of chest normal and palpation of chest normal Resp normal respiratory effort and clear to auscultation bilaterally Auscultation: Negative for rales, rhonchi or wheezes Cardio regular rate and regular rhythm GI normal to inspection, nondistended, normoactive bowel sounds Narrative: Deferred Back/Spine Cervical Spine: Negative for cervical spine tenderness Extremity normal to inspection General Extremety ED: Negative for edema or tenderness General Extremity: Negative for edema Neuro oriented x3 and CN's II-XII intact bilaterally Sensorium / Orientation: alert Motor Exam: strength 5/5 throughout Psych mental status grossly normal Attitude: No agitated Skin no rashes or lesions noted and no wounds General Skin Exam: Negative for jaundice or pallor MDM MDM MDM Narrative Medical decision making narrative: Patient presenting with what sounds like initially to be allergic rhinitis. She states she has a longstanding history of allergies and this time a year makes it worse. She states she has been taking Claudia which she has always taken every day. She also takes Benadryl at night. She complains of continued nasal congestion, itching eyes, itchy throat and persistent cough. Because of her chest pain I did obtain an EKG and on my interpretation she has a normal sinus rhythm with a ventricular rate of 60 bpm without sign of ischemic change or dysrhythmia. Chest x-ray on my interpretation shows no acute cardiopulmonary process and radiologist does agree. CBC and BMP are within normal limits. High-sensitivity troponin is less than 3 and I do not believe she did repeat troponin. D-dimer is negative at 0.34. I suspect all of this is from seasonal allergies, Mucinex, and Sudafed. Since she is already on all her medications she would normally take for allergies I will give her a burst of prednisone to see if this clears up her symptoms. She is counseled to use a [place] pot to help with her congestion. Impression: 1. Allergic rhinitis 2. Chest pain noncardiac 3. Cough Lab Data Labs: Laboratory Results - last 24 hr 08/09/21 08/09/21 08/09/21 14:22 14:22 14:22 WBC 7.9 RBC 3.96 L Hgb 11.6 L Hct 37.1 MCV 93.7 MCH 29.3 MCHC 31.3 L RDW Std Deviation 46.3 H RDW Coeff of Kalani 13.5 Plt Count 264 MPV 9.3 Immature Gran % (Auto) 0.300 Neut % (Auto) 59.9 Lymph % (Auto) 29.4 [place] % (Auto) 8.1 Eos % (Auto) 1.5 Baso % (Auto) 0.8 Absolute Neuts (auto) 4.7 Absolute Lymphs (auto) 2.32 Nucleated RBC % 0 D-Dimer Quant (PE/DVT) 0.34 Sodium 141 Potassium 4.2 Chloride 112 H Carbon Dioxide 25.0 Anion Gap 4 L BUN 22 H Creatinine 0.92 Estim Creat Clear Calc 46.33 Est GFR (MDRD) Af Amer 77 Est GFR (MDRD) Non-Af 64 BUN/Creatinine Ratio 24.0 H Glucose 92 Calcium 9.3 Troponin I High Sens < 3 L Radiography Diagnostic Testing: Clinical Impression(s) from Imaging Studies Chest X-Ray 08/09/21 14:26 IMPRESSION: No evidence of acute cardiopulmonary process. Electronically Signed: Serg Bose DO at 14:52 EDT Reading Location ID and State: [facility] / [place] , Service support , Discharge Plan Triage Chief Complaint: Shortness of Breath ED Provider: Garrett England Dx/Rx/DC Orders Instructions: ED Chest Pain, Noncardiac, ED Allergic Rhinitis Prescriptions: New prednisone 10 mg tablet 50 mg PO DAILY 3 Days Qty: 15 RF: 0 No Action nitroglycerin 0.4 mg tablet, sublingual 0.4 mg SUBLINGUAL Q5-15M PRN (Reason: chest pain) Qty: 25 RF: 3 diphenhydramine HCl 50 mg capsule 50 mg PO QHS PRN (Reason: Sleep) RF: 0 fexofenadine 180 mg tablet 180 mg PO DAILY RF: 0 pantoprazole 40 mg tablet,delayed release (DR/EC) 40 mg PO BID RF: 0 lisinopril 5 mg tablet 5 mg PO DAILY Qty: 90 RF: 3 citalopram 20 MG tablet 40 mg PO QHS RF: 0 lubiprostone 24 capsule 24 mcg PO BID RF: 0 pumpkin seed extract-soy germ 300 MG capsule 2 tab PO DAILY RF: 0 promethazine 25 MG tablet 12.5 mg PO Q6H PRN PRN (Reason: Nausea) Qty: 10 RF: 0 pravastatin 20 mg tablet 20 mg PO DAILY Qty: 30 RF: 11 clopidogrel 75 mg tablet 75 mg PO DAILY Qty: 30 RF: 11 Primary Care Provider: Anatoly Zuniga Referrals: Anatoly Zuniga MD [Primary Care Provider] - Disposition Disposition: Home, Self Care
--- NOTE | 2021-08-09 14:26 | RAD_ITS ---
STUDY: X-RAY CHEST REASON FOR EXAM: Female, 75 years old. chest pain TECHNIQUE: Single AP portable view of the chest. COMPARISON: 01/01/2019 FINDINGS: The lungs are clear and expanded. There is no demonstrated pleural abnormality. Normal size heart. Normal mediastinum and brian. Normal visualized pulmonary arteries. There is atherosclerotic calcification of the aortic arch with tortuosity. Normal visualized thoracic spine. Normal visualized ribs, clavicles, and shoulders. There is no demonstrated abnormality of the visualized soft tissue structures of the upper abdomen. RAD/Chest 1 View (Portable) IMPRESSION: No evidence of acute cardiopulmonary process. Electronically Signed: Serg Bose DO at 14:52 EDT ,
[2021-08-09 14:28] LABS: Absolute Lymphocyte Count 2.32 X10^3/uL (0.83-4.51); Absolute Neutrophil Count 4.7 X10^3/uL (2.0-7.7); Basophil# 0.06 X10^3/uL; Basophil% 0.8 % (0-1); Eosinophil# 0.12 X10^3/uL; Eosinophils% 1.5 % (0-5); Hematocrit 37.1 % (37-47); Hemoglobin 11.6 g/dL (12.0-15.0); Lymphocyte # 2.32 X10^3/ul (0.83-4.51); Lymphocyte % 29.4 % (19-41); Mean Corp Hgb Conc 31.3 g/dL (32-36); Mean Corpuscular Hgb 29.3 pg (27.0-32.0); Mean Corpuscular Volume 93.7 fL (81-99); Mean Platelet Vol. 9.3 fl (6.2-12.0); Monocyte# 0.64 X10^3/uL; Monocyte% 8.1 % (0-10); NRBC Flagged by Analyzer 0 % (0-5); Neutrophil # 4.72 X10^3/uL (2.7-7.7); Neutrophil % 59.9 % (47-70); Platelet Count 264 K/mm3 (150-450); RBC Distribution Width CV 13.5 % (11.6-14.6); RBC Distribution Width SD 46.3 fl (35.1-43.9); Red Blood Count 3.96 M/mm3 (4.2-5.4); White Blood Count 7.9 K/mm3 (4.4-11.0)
[2021-08-09 14:39] LABS: D-Dimer Quantitative (DVT/PE) 0.34 FEU/ug/m (0.27-0.49)
[2021-08-09 14:46] LABS: Anion Gap 4 (5-15); BUN 22 mg/dL (7-18); Calcium,Total 9.3 mg/dL (8.5-10.1); Chloride 112 mmol/L (98-107); Creatinine, Serum 0.92 mg/dL (0.55-1.02); EST Glomerular Filtration Rate 64 mL/min (>60); Est Glom Filt Rate - Afr Amer 77 mL/min (>60); Estimated Creatinine Clearance 46.33 ml/min; Glucose 92 mg/dL (74-106); Potassium 4.2 mmol/L (3.5-5.1); Sodium Level 141 mmol/L (136-145); Troponin-I HS (w/2H Reflex) < 3 pg/mL (3.0-54.0)
[2021-08-09] MEDS: predniSONE 20 MG Tablet 60 MG PO (15:13)
[2021-08-09 16:25] LABS: Reflex Troponin-HS? (from REC) Y
== END 2021-08-09 15:17 | disposition home or self-care (01) ==
PROVIDERS: Emergency Provider Student in an Organized Health Care Education/Training Program; PCP Family Medicine; Visit Provider Student in an Organized Health Care Education/Training Program
DX: J30.9 Allergic rhinitis, unspecified (principal); R07.89 Other chest pain; R06.02 Shortness of breath; I25.10 Atherosclerotic heart disease of native coronary artery without angina pectoris; E78.2 Mixed hyperlipidemia; Z79.02 Long term (current) use of antithrombotics/antiplatelets; Z86.16 Personal history of COVID-19
CPT/HCPCS: 71045; 80048; 84484; 85025; 85379; 93005; 99285

== ENCOUNTER → 2021-10-01 | Outpatient (CLI) | payer MEDICARE, OTHER, SELFPAY ==
[2017-10-12 14:26] VITALS: BMI 27.3
--- NOTE | 2021-10-01 07:11 | ECHOD_ITS ---
Reason For Study: CAD/ASHD Procedure This was a 2D Doppler, Color Flow transthoracic echocardiogram. The study was technically difficult. Exam performed in department. Left Ventricle Apical false tendon noted. Based upon the 2D echocardiographic images obtained there appears to be grossly normal appearing left ventricular size, wall motion, and systolic function. The estimated ejection fraction is 55 %. Diastolic function is indeterminate. Right Ventricle Normal RV size. Normal systolic function. Atria The left atrium is mildly enlarged. Normal right atrium. No doppler evidence for ASD. Mitral Valve There is no mitral annular calcification. Normal mitral valve. Mild (1+) mitral valve insufficiency. Tricuspid Valve Normal tricuspid valve. Mild tricuspid valve insufficiency. Unable to estimate RV systolic pressure/pulmonary artery pressure due to technically difficult study. Aortic Valve The aortic valve is not well visualized in the short axis view, however, based upon the 2D echocardiographic images obtained there appears to be grossly normal-appearing trileaflet aortic valve. Pulmonic Valve The pulmonic valve is not well visualized. Great Vessels The aortic root is not well-visualized. Pericardium/Pleural No pericardial effusion. MMode/2D Measurements & Calculations RVDd: 3.3 cm LAV(MOD-bp): 80.0 ml LVAd ap4: 29.3 cm2 LAV(MOD-bp) Indexed: 43.9 ml/m2 LVLd ap4: 7.7 cm LAV(MOD-sp2): 87.3 ml EDV(MOD-sp4): 97.3 ml LAV(MOD-sp4): 68.6 ml EDV(sp4-el): 94.7 ml LVAs ap4: 19.1 cm2 LVLs ap4: 6.7 cm ESV(MOD-sp4): 47.2 ml ESV(sp4-el): 46.0 ml EF(MOD-sp4): 51.5 % EF(sp4-el): 51.4 % SV(MOD-sp4): 50.2 ml SV(sp4-el): 48.7 ml LA A4 area: 21.5 cm2 RA A4 area: 13.0 cm2 Time Measurements MV dec time: 0.48 sec Doppler Measurements & Calculations MV E max salbador: 54.6 cm/sec Lat Peak E' Salbador: 6.6 cm/sec Med Peak E' Salbador: 4.4 cm/sec MV A max salbador: 57.5 cm/sec E/E' lat: 8.3 E/E' med: 12.3 MV E/A: 0.95 MV dec slope: 114.1 cm/sec2 Ao V2 max: 112.0 cm/sec LV V1 max: 81.1 cm/sec Ao max P.0 mmHg LV V1 max P.6 mmHg Ao V2 mean: 79.5 cm/sec LV V1 mean P.5 mmHg Ao mean P.8 mmHg LV V1 mean: 58.2 cm/sec Ao V2 VTI: 31.9 cm LV V1 VTI: 24.7 cm PA V2 max: 59.1 cm/sec PA V2 mean: 45.0 cm/sec ECHO/Echo Complete Interpretation Summary The study was technically difficult. Based upon the 2D echocardiographic images obtained there appears to be grossly normal appearing left ventricular size, wall motion, and systolic function. The estimated ejection fraction is 55 %. The left atrium is mildly enlarged. Mild (1+) mitral valve insufficiency. Mild tricuspid valve insufficiency. Unable to estimate RV systolic pressure/pulmonary artery pressure due to techni linda difficult study. Diastolic function is indeterminate. Ordering Physician: Andrés Heath Referring Physician: Andrés Heath Performed By: Jeanette Lechuga RCS
--- NOTE | 2021-10-01 09:33 | STRESSREP ---
Stress Test Report Date: 09/28/2021 Procedure: Pharmacologic stress nuclear imaging study Indications: Chest pain; CAD; PCI Consent: Per the patient Procedure: The patient underwent pharmacologic (Regadenoson 0.4mg ) evaluation with a peak heart rate of 71 beats per minute (48%predicted maximal heart rate) and a peak blood pressure of 122/70 mmHg. The baseline ECG demonstrated sinus bradycardia. The peak pharmacologic ECG demonstrated no obvious ECG changes. There were no cardiac dysrhythmias pretest, during pharmacologic infusion, or recovery. There was no complaint of chest discomfort during pharmacologic infusion or recovery. The examination was discontinued secondary to completion of protocol. Impression: 1. Pharmacologic (Regadenoson) evaluation 2. Peak pharmacologic ECG with no obvious ECG changes. 3. There were no cardiac dysrhythmias pretest, during pharmacologic infusion, or recovery. 4. Nuclear images pending Myocardial perfusion imaging study: Technique: The patient was injected with 14.1 millicuries of technetium 99m Cardiolite and subsequently rest SPECT Cardiolite nuclear imaging was obtained in the horizontal long, vertical long, and short axis views. The patient underwent pharmacologic (Regadenoson) evaluation with a peak heart rate of 71 beats per minute (48% percent predicted maximal heart rate) and a peak blood pressure of 122/70 mmHg. The patient was injected with 43.9 millicuries of technetium 99m Cardiolite and subsequently stress SPECT Cardiolite nuclear imaging was obtained in the horizontal long, vertical long, and short axis views. A gated Cardiolite study at peak stress was obtained. Interpretation: Rest and stress SPECT Cardiolite nuclear imaging status post realignment, normalization, and attenuation correction demonstrate the appearance of body motion during image acquisition and at rest the appearance of a small area of diminished tracer uptake near the apical segments at rest which appears to improve and/or normalize following stress. There is end systolic thickening and brightening. The gated Cardiolite study demonstrates myocardial thickening and inward wall motion. The reported LVEF is 65%. Impression: 1. Rest and stress SPECT Cardiolite nuclear imaging demonstrate myocardial perfusion changes appearing compatible with body motion during image acquisition and the appearance of a small area of diminished tracer uptake near the apical segments at rest which appears to improve and/or normalize following stress appearing compatible with shifting soft tissue attenuation/artifact with no myocardial perfusion changes considered diagnostic for associated stress-induced myocardial ischemia. 2. The gated Cardiolite study reports an LVEF of 65%. This note was generated with [employer] software. It may contain incorrect words, spelling, and punctuation that were not noted in checking the note before signing.
== END | disposition home or self-care (01) ==
LOC: CVS 07:05
PROVIDERS: PCP Family Medicine; Referring Provider Internal Medicine Cardiovascular Disease; Visit Provider Internal Medicine Cardiovascular Disease
DX: R07.9 Chest pain, unspecified (principal); I25.10 Atherosclerotic heart disease of native coronary artery without angina pectoris; R06.00 Dyspnea, unspecified; E78.2 Mixed hyperlipidemia; I51.81 Takotsubo syndrome; Z95.5 Presence of coronary angioplasty implant and graft
CPT/HCPCS: 78452; 93017; 93306; A9500; A4216; J2785

== ENCOUNTER → 2022-10-06 | Outpatient (CLI) | payer MEDICARE, OTHER, SELFPAY ==
[2017-10-12 14:26] VITALS: BMI 27.3
== END | disposition home or self-care (01) ==
LOC: PSN 13:55
PROVIDERS: PCP Family Medicine; Referring Provider Nurse Practitioner Family; Visit Provider Nurse Practitioner Family
DX: I49.5 Sick sinus syndrome (principal); R42 Dizziness and giddiness; R00.2 Palpitations
CPT/HCPCS: 93225; 93226

== ENCOUNTER → 2023-09-01 | Outpatient (CLI) | payer MEDICARE, OTHER, SELFPAY ==
[2017-10-12 14:26] VITALS: BMI 27.3
--- NOTE | 2023-09-01 06:53 | ECHOCS_ITS ---
Reason For Study: Takotsubo Syndrome Procedure This was a 2D Doppler, Color Flow transthoracic echocardiogram. The study was technically difficult. Contrast injection was performed. Exam performed in department. Left Ventricle Normal LV size. Apical false tendon noted. Left ventricular systolic function is normal. The estimated ejection fraction is 55 %. Normal diastololic function. Right Ventricle Normal RV size. Normal systolic function. Atria The left atrium is mildly enlarged. Normal right atrium. Mitral Valve The mitral valve is structurally normal. No prolapse or stenosis seen. Trivial mitral valve insufficiency. Tricuspid Valve Normal tricuspid valve. Trivial tricuspid valve insufficiency. Pulmonary artery systolic pressure is 26 mmHg. Aortic Valve Trisinus/trileaflet aortic valve. Pulmonic Valve Normal pulmonic valve. Trivial pulmonic valve insufficiency. Great Vessels Normal aortic root. Pericardium/Pleural Trace to small anterior pericardial effusion. Medication 22 gauge I.V. with prn adaptor inserted into right arm. Diluted definity 2.5ml given slow IV push to enhance endocardial definition. MMode/2D Measurements & Calculations LVIDd: 4.7 cm IVSd: 1.1 cm Ao root diam: 2.8 cm LVIDs: 3.5 cm LVPWd: 1.1 cm LA dimension: 4.3 cm RVDd: 3.0 cm FS: 24.8 % LAV(MOD-bp): 55.3 ml LVAd ap4: 27.8 cm2 SV(MOD-sp4): 52.0 ml LAV(MOD-bp) Indexed: 30.4 ml/m2 LVLd ap4: 7.1 cm LAV(MOD-sp2): 60.5 ml EDV(MOD-sp4): 91.0 ml LAV(MOD-sp4): 49.2 ml EDV(sp4-el): 92.1 ml LVAs ap4: 16.2 cm2 LVLs ap4: 5.5 cm ESV(MOD-sp4): 39.0 ml ESV(sp4-el): 40.3 ml EF(MOD-sp4): 57.1 % EF(sp4-el): 56.3 % SV(sp4-el): 51.8 ml LA A4 area: 18.0 cm2 RA A4 area: 10.9 cm2 TAPSE: 1.0 cm Time Measurements MV dec time: 0.23 sec Doppler Measurements & Calculations MV E max salbador: 55.4 cm/sec Lat Peak E' Salbador: 10.2 cm/sec Med Peak E' Salbador: 7.0 cm/sec MV A max salbador: 73.7 cm/sec E/E' lat: 5.5 E/E' med: 7.9 MV E/A: 0.75 MV V2 max: 91.8 cm/sec MV P1/2t max salbador: 73.5 cm/sec Ao V2 max: 109.3 cm/sec MV max P.4 mmHg MV P1/2t: 93.4 msec Ao max P.8 mmHg MV V2 mean: 48.3 cm/sec Ao V2 mean: 76.4 cm/sec MV mean P.1 mmHg MV dec slope: 230.4 cm/sec2 Ao mean P.7 mmHg MV V2 VTI: 31.8 cm MVA(P1/2t): 2.4 cm2 Ao V2 VTI: 30.0 cm LV V1 max: 83.6 cm/sec MR max salbador: 495.8 cm/sec PA V2 max: 61.8 cm/sec LV V1 max P.8 mmHg MR max P.3 mmHg PA max PG (full): 0.27 mmHg TR max salbador: 240.4 cm/sec TR max P.1 mmHg ECHO/Echo Complete W/ Contrast Interpretation Summary The estimated ejection fraction is 50-55 %. Normal diastololic function. The left atrium is mildly enlarged. Trace to small anterior pericardial effusion. The study was technically difficult. Contrast injection was performed. Ordering Physician: Robin Ryan Referring Physician: MD Nadia Anatoly Performed By: Peter Bowden RCS
--- NOTE | 2023-09-01 12:52 | STRESSREP ---
Stress Test Report Date: 09/01/2023 Procedure: Pharmacologic stress nuclear imaging study Indications: Chest pain Consent: Per the patient Procedure: The patient underwent pharmacologic (Regadenoson 0.4mg ) evaluation with a peak heart rate of 67 beats per minute (46%predicted maximal heart rate) and a peak blood pressure of 138/80 mmHg. The baseline ECG demonstrated sinus bradycardia with nonspecific ST changes. The peak pharmacologic ECG demonstrated no diagnostic ischemic changes. There were no cardiac dysrhythmias pretest, during pharmacologic infusion, or recovery. There was no complaint of chest discomfort during pharmacologic infusion or recovery. The patient was injected with 11.9 millicuries of technetium 99m Cardiolite and subsequently rest SPECT Cardiolite nuclear imaging was obtained in the horizontal long, vertical long, and short axis views. The patient underwent pharmacologic (Regadenoson) evaluation. The patient was injected with 34.7 millicuries of technetium 99m Cardiolite and subsequently stress SPECT Cardiolite nuclear imaging was obtained in the horizontal long, vertical long, and short axis views. A gated Cardiolite study at peak stress was obtained. The examination was stopped secondary to completion of protocol. Rest and stress SPECT Cardiolite nuclear imaging status post realignment, normalization, and attenuation correction demonstrate no fixed or reversible perfusion defects. There is end systolic thickening and brightening. The gated Cardiolite study demonstrates myocardial thickening and inward wall motion. The reported LVEF is 70%. Impression: 1. Pharmacologic (Regadenoson) evaluation 2. Peak pharmacologic ECG with no diagnostic ischemic changes. 3. There were no cardiac dysrhythmias pretest, during pharmacologic infusion, or recovery. 5. Rest and stress SPECT Cardiolite nuclear imaging demonstrate relative uniform tracer uptake and myocardial perfusion appearing within normal limits. 6. The gated Cardiolite study reports an LVEF of 70%. This note was generated with [employer] software. It may contain incorrect words, spelling, and punctuation that were not noted in checking the note before signing.
== END | disposition home or self-care (01) ==
LOC: CVS 06:50
PROVIDERS: PCP Family Medicine; Referring Provider Internal Medicine Cardiovascular Disease; Visit Provider Internal Medicine Cardiovascular Disease
DX: I51.81 Takotsubo syndrome (principal); I25.10 Atherosclerotic heart disease of native coronary artery without angina pectoris
CPT/HCPCS: 78452; 93017; 93306; A9500; Q9957; A4216; C8929; J2785

== ENCOUNTER → 2023-10-24 | Outpatient (CLI) | payer MEDICARE, OTHER, SELFPAY ==
[2017-10-12 14:26] VITALS: BMI 27.3
--- NOTE | 2023-10-24 14:24 | US_ITS ---
STUDY: RENAL ULTRASOUND - COMPLETE REASON FOR EXAM: Female, 77 years old. UTI TECHNIQUE: Ultrasound evaluation of the kidneys was performed with real-time and static bajwa-scale imaging. COMPARISON: None. FINDINGS: RIGHT KIDNEY: Normal location of the right kidney, which is normal in size. The right kidney measures 9.4 cm x 5.3 cm x 4.6 cm. There is a normal cortex of the right kidney. The renal cortex measures 1 cm. There is no right renal mass or cyst. There are no right renal calculi. There is no right hydronephrosis. DISTAL RIGHT URETER: There is non-visualization of the distal right ureter. There is no demonstrated right ureterovesical junction calculus. There is a visualized right ureteral jet. LEFT KIDNEY: Normal location of the left kidney, which is normal in size. The left kidney measures 10.1 cm x 4.9 cm x 5.7 cm. There is a normal cortex of the left kidney. The renal cortex measures 1.2 cm. There is a 7 mm x 6 mm x 4 mm cyst in the midportion of the left kidney. There are no left renal calculi. There is no left hydronephrosis. DISTAL LEFT URETER: There is non-visualization of the distal left ureter. There is no demonstrated left ureterovesical junction calculus. There is a visualized left ureteral jet. BLADDER: The distended urinary bladder has a volume of 474 ml. There is a normal wall thickness of the distended urinary bladder. There is no demonstrated mass within the urinary bladder. There are no demonstrated bladder calculi. US/Kidney and Bladder IMPRESSION: Small cyst in the left kidney. Electronically Signed: Chico Otoole MD at 10:42 EDT ,
== END | disposition home or self-care (01) ==
LOC: US 14:16
PROVIDERS: PCP Family Medicine; Referring Provider Urology; Visit Provider Urology
DX: N39.0 Urinary tract infection, site not specified (principal)
CPT/HCPCS: 76770

== ENCOUNTER → 2024-09-27 | Outpatient (CLI) | payer MEDICARE, OTHER, SELFPAY ==
[2017-10-12 14:26] VITALS: BMI 27.3
[2024-09-27 14:12] LABS: Anion Gap 12 (5-15); BUN 13 mg/dL (4-19); BUN/Creat Ratio 10.7 RATIO (10-20); Calcium,Total 9.3 mg/dL (7.6-11.0); Carbon Dioxide 20.1 mmol/L (21.0-32.0); Chloride 108 mmol/L (98-108); Glucose 76 mg/dL (70-99); Potassium 3.7 mmol/L (3.3-5.1); Pro- Brain NATRIURETIC PEPTIDE 232 pg/mL (<=1800)
== END | disposition home or self-care (01) ==
LOC: LAB 12:23
PROVIDERS: PCP Family Medicine; Referring Provider Student in an Organized Health Care Education/Training Program; Visit Provider Student in an Organized Health Care Education/Training Program
DX: R06.00 Dyspnea, unspecified (principal); R60.0 Localized edema; I51.81 Takotsubo syndrome
CPT/HCPCS: 36415; 80048; 83880

== ENCOUNTER → 2024-10-01 | Outpatient (CLI) | payer MEDICARE, OTHER, SELFPAY ==
[2017-10-12 14:26] VITALS: BMI 27.3
--- NOTE | 2024-10-01 11:54 | RAD_ITS ---
PROCEDURE: CHEST PA AND LATERAL 10/01/2024 REASON FOR EXAM: SHORTNESS OF BREATH TECHNIQUE: CHEST PA AND LATERAL COMPARISON: 08/09/21 FINDINGS: No focal consolidation. No pleural effusion or pneumothorax. Cardiac silhouette is within normal limits. No acute fractures. RAD/Chest PA and Lateral IMPRESSION: No focal consolidations. Reading Location: [facility]
[2024-10-01 12:20] LABS: Hematocrit 35.8 % (37-47); Hemoglobin 11.8 g/dL (12.0-15.0); Immature Granulocytes Count 0.010 X10^3/uL (0.0-0.0); Mean Corp Hgb Conc 33.0 g/dL (32-36); Mean Corpuscular Volume 96.2 fL (81-99); Mean Platelet Vol. 9.3 fl (6.2-12.0); NRBC Flagged by Analyzer 0 % (0-5); Platelet Count 252 K/mm3 (150-450); RBC Distribution Width CV 13.5 % (11.6-14.6); RBC Distribution Width SD 47.8 fl (35.1-43.9); Red Blood Count 3.72 M/mm3 (4.2-5.4); White Blood Count 6.3 K/mm3 (4.4-11.0)
[2024-10-01 13:02] LABS: Magnesium 2.4 mg/dL (1.5-2.2); Pro- Brain NATRIURETIC PEPTIDE 502 pg/mL (<=1800)
== END | disposition home or self-care (01) ==
LOC: RAD 11:42
PROVIDERS: PCP Family Medicine; Referring Provider Student in an Organized Health Care Education/Training Program; Visit Provider Student in an Organized Health Care Education/Training Program
DX: R06.00 Dyspnea, unspecified (principal); R00.2 Palpitations
CPT/HCPCS: 36415; 71046; 83735; 83880; 84443; 85025

== ENCOUNTER → 2024-10-15 | Outpatient (CLI) | payer MEDICARE, OTHER, SELFPAY ==
[2017-10-12 14:26] VITALS: BMI 27.3
[2024-10-15 15:14] LABS: Anion Gap 14 (5-15); BUN 16 mg/dL (4-19); BUN/Creat Ratio 13.3 RATIO (10-20); Calcium,Total 9.9 mg/dL (7.6-11.0); Carbon Dioxide 22.1 mmol/L (21.0-32.0); Chloride 105 mmol/L (98-108); Glucose 142 mg/dL (70-99); Potassium 3.4 mmol/L (3.3-5.1)
== END | disposition home or self-care (01) ==
LOC: LAB 13:12
PROVIDERS: Student in an Organized Health Care Education/Training Program; PCP Family Medicine; Referring Provider Physician Assistant Medical; Visit Provider Physician Assistant Medical
DX: R60.0 Localized edema (principal); R06.02 Shortness of breath; I25.10 Atherosclerotic heart disease of native coronary artery without angina pectoris
CPT/HCPCS: 36415; 80048

== ENCOUNTER → 2024-11-22 | Outpatient (CLI) | payer MEDICARE, OTHER, SELFPAY ==
[2017-10-12 14:26] VITALS: BMI 27.3
--- NOTE | 2024-11-22 13:47 | ECHOD_ITS ---
Reason For Study : SOB Procedure This was a 2D Doppler, Color Flow transthoracic echocardiogram. Exam performed in department. Left Ventricle Normal LV size. The left ventricular ejection fraction is 65 %. Stage 2 diastolic dysfunction. No regional wall motion abnormalities noted. Right Ventricle Normal RV size. Normal systolic function. Atria Normal left atrium. Normal right atrium. Tricuspid Valve Normal tricuspid valve. Mild tricuspid valve insufficiency. Aortic Valve Trisinus/trileaflet aortic valve. Pulmonic Valve Normal pulmonic valve. Great Vessels Normal aortic root. The pulmonary artery is normal size. Inferior vena cava collapse with respiration. Pericardium/Pleural No pericardial effusion. MMode/2D Measurements & Calculations LVIDd: 4.8 cm IVSd: 1.0 cm Ao root diam: 3.0 cm LVIDs: 3.0 cm LVPWd: 1.0 cm RVDd: 3.1 cm FS: 38.3 % LAV(MOD-bp): 63.8 ml LVAd ap4: 23.8 cm2 SV(MOD-sp4): 45.6 ml LAV(MOD-bp) Indexed: 36.6 ml/m2 LVLd ap4: 6.7 cm SI(MOD-sp4): 26.1 ml/m2 LAV(MOD-sp2): 72.8 ml EDV(MOD-sp4): 71.8 ml LAV(MOD-sp4): 54.3 ml EDV(sp4-el): 72.2 ml LVAs ap4: 13.6 cm2 LVLs ap4: 6.2 cm ESV(MOD-sp4): 26.2 ml ESV(sp4-el): 25.5 ml EF(MOD-sp4): 63.5 % EF(sp4-el): 64.7 % SV(sp4-el): 46.7 ml LA dimension(2D): 4.6 cm LA A4 area: 19.0 cm2 RA A4 area: 12.2 cm2 TAPSE: 1.3 cm Time Measurements MV dec time: 0.20 sec Doppler Measurements & Calculations MV E max salbador: 76.2 cm/sec Lat Peak E' Salbador: 13.8 cm/sec Med Peak E' Salbador: 6.6 cm/sec MV A max salbador: 65.7 cm/sec E/E' lat: 5.5 E/E' med: 11.5 MV E/A: 1.2 MV V2 max: 83.7 cm/sec MV P1/2t max salbador: 85.0 cm/sec Ao V2 max: 106.2 cm/sec MV max P.8 mmHg MV P1/2t: 77.7 msec Ao max P.5 mmHg MV V2 mean: 43.6 cm/sec Ao V2 mean: 73.6 cm/sec MV mean P.90 mmHg MV dec slope: 320.5 cm/sec2 Ao mean P.5 mmHg MV V2 VTI: 32.2 cm MVA(P1/2t): 2.8 cm2 Ao V2 VTI: 28.0 cm AV (velocity ratio): 0.78 LV V1 max: 81.8 cm/sec PA V2 max: 82.4 cm/sec TR max salbador: 181.6 cm/sec LV V1 max P.7 mmHg PA V2 mean: 60.8 cm/sec TR max P.2 mmHg LV V1 mean P.5 mmHg LV V1 mean: 56.4 cm/sec LV V1 VTI: 21.8 cm ECHO/Echo Complete Interpretation Summary Normal LV size. The left ventricular ejection fraction is 65 %. Stage 2 diastolic dysfunction. Mild tricuspid valve insufficiency. Structurally normal valves. Ordering Physician: Sudheer Leonardo Referring Physician: Sudheer Leonardo Performed By: Peter Bowden RCS
== END | disposition home or self-care (01) ==
LOC: CVS 13:38
PROVIDERS: PCP Family Medicine; Referring Provider Student in an Organized Health Care Education/Training Program; Visit Provider Student in an Organized Health Care Education/Training Program
DX: R06.00 Dyspnea, unspecified (principal)
CPT/HCPCS: 93306